=== PATIENT | female | born 1965 | race Caucasian/White ===

== ENCOUNTER 2018-09-30 07:30 | Inpatient (IN) | payer OTHER ==
--- NOTE | 2018-09-25 19:30 | Pre-op HX & Phy Repo 2 SIG ---
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 The patient has a 20-year history of ulcerative colitis. At some point, it was felt it was Crohn's disease, which was ruled out. She has a history of sarcoidosis not requiring treatment. The Ulcerative Colitis has been treated with multiple medical regimens, but she has increased symptoms and episodes of incontinence and a very limited quality of life. She has undergone colonoscopy revealing in the past, stricture of the sigmoid and mid upper rectum, but more recently in January of 2018, there was no sign of any stricture. Since 2017 she has had biopsy-proven anal intraepithelial neoplasm, which has been extensive and high-grade treated by cauterizing squamous intraepithelial lesions. She is not a candidate for restorative procedure with ileoanal pouch. In the past, she has taken many various medications including prednisone and 6-MP, most recently Entyvio and Canasa suppositories (mesalamine). The patient is scheduled to undergo proctocolectomy with creation of a Leal continent intestinal reservoir to avoid a conventional ileostomy requiring wearing an external appliance. The patient has also complained of joint pains and uveitis from her ulcerative colitis. PAST MEDICAL HISTORY AND MEDICATIONS: Entyvio 300 mg IV every 4 weeks with the last infusion on 09/13/2018. Occasionally she takes albuterol, Flonase , and Claritin for allergic-induced asthma. She has in the past also taken Zithromax for sinus infection. ALLERGIES TO MEDICATIONS: She thinks she is allergic to prednisone, perhaps she has excessive side effects, and morphine has caused rash. OPERATIONS: She has undergone section x3. She underwent left hand surgery x2 for removal of an old foreign body. REVIEW OF SYSTEMS: Sarcoidosis based on mediastinoscopy with biopsy , requiring no treatment PHYSICAL EXAMINATION: The patient is 5 feet 6.5 inches, 182 pounds. She is arriving from out of town, will be examined upon arrival and dictated separately. IMPRESSION: Intractable ulcerative colitis with anal intraepithelial neoplasm involving lower rectum and anal canal. PLAN: Proctocolectomy with creation of a Leal continent intestinal reservoir DISCUSSION: I have had a full discussion with the patient regarding the nature of her condition, the nature of the surgery, indications, alternatives, options, and risks. I have discussed the general risks of surgery including bleeding, infection, injury to adjacent structures or organs, adhesions that could lead to bowel obstruction, need for reoperation, scarring, deep vein thrombosis despite prophylaxis, need for catheter gastrostomy for decompression and its risks, etc. I have also had a detailed discussion about the risks of the Leal continent ileostomy procedure including the risk of reoperation for slipped valve or because of fistula of pouch or valve or other issues with the function or structure of the pouch or stoma. I will have another complete discussion in person with the patient when she arrives from out of town. She will undergo insertion of a dual lumen PICC line, intravenous hydration during her bowel prep, preoperative antibiotics started the night before surgery and preoperative subcutaneous heparin. Chung Gonzales M.D. DR: WILLIE JOB#: [id number] CC: HOSEA
[~2018-09-30] VITALS: Ht 167.6 cm; Wt 79.9 kg
[2018-09-30 10:10] VITALS: BP 138/77
--- NOTE | 2018-09-30 10:10 | NUR ---
NURSE NOTES:ADMITTED 58 YEARS OLD FEMALE FR.HOME DX.ULCERATIVE COLITIS.A/OX4,ROOM AIR.AMBULATORY.ADMISSION ASSESSMENT DONE.FOR SURGERY IN AM,CONSENTED.ADMISSION ORDERS DISCUSSED,WITH UNDERSTANDING.
--- NOTE | 2018-09-30 10:41 | NUR ---
CHARGE NURSE NOTES: ANESTHESIA CALLED THROUGH [facility] SURGERY DEPT.
[2018-09-30] MEDS ORDERED: Heparin1,000 units/500ml Premix(Conc:2 units/ml) IV PRN (11:00)
[2018-09-30] MEDS ORDERED: Lidocaine 1% Plain 30 ml INJ PRN (11:00)
[2018-09-30 11:26] LABS: BASOPHILS % (AUTO) 0.5 % (0.0-2.0); EOSINOPHILS % (AUTO) 3.8 % (0.0-3.0); HEMATOCRIT 32.7 % (37.0-47.0); HEMOGLOBIN 10.4 G/DL (12.0-16.0); LYMPHOCYTES % (AUTO) 17.7 % (20.0-45.0); MEAN CORPUSCULAR VOLUME 79 FL (80-99); MONOCYTES % (AUTO) 6.4 % (1.0-10.0); NEUTROPHILS % (AUTO) 71.6 % (45.0-75.0); PLATELET COUNT 317 K/UL (150-450); RED BLOOD COUNT 4.15 M/UL (4.20-5.40); RED CELL DISTRIBUTION WIDTH 14.1 % (11.6-14.8); WHITE BLOOD COUNT 6.4 K/UL (4.8-10.8)
[2018-09-30] MEDS ORDERED: Acetaminophen 500mg (ES) tab ORAL PRN (11:30)
[2018-09-30] MEDS ORDERED: Magnesium Citrate Liq Btl ORAL SCH (11:30)
[2018-09-30 11:39] LABS: INR 1.1 (0.9-1.1)
[2018-09-30 11:44] LABS: ANION GAP 11 mmol/L (5-15); BLOOD UREA NITROGEN 8 mg/dL (7-18); CALCIUM 8.8 MG/DL (8.5-10.1); CARBON DIOXIDE 25 MMOL/L (21-32); CHLORIDE 101 MMOL/L (98-107); POTASSIUM 3.5 MMOL/L (3.5-5.1); SODIUM 137 MMOL/L (136-145)
[2018-09-30 11:49] LABS: ALANINE AMINOTRANSFERASE 20 U/L (12-78); ALBUMIN 3.7 G/DL (3.4-5.0); ALBUMIN/GLOBULIN RATIO 0.8 (1.0-2.7); ALKALINE PHOSPHATASE 73 U/L (46-116); ASPARTATE AMINO TRANSFERASE 25 U/L (15-37); BILIRUBIN,TOTAL 0.4 MG/DL (0.2-1.0)
[2018-09-30] MEDS ORDERED: IRON 100 PLUS1 EACH PO (12:07)
[2018-09-30] MEDS ORDERED: ZYRTEC10 MG ORAL (12:07)
[2018-09-30] MEDS ORDERED: ALBUTEROL SULF8.5 GM INH (12:07)
[2018-09-30] MEDS: Neomycin Sulfate 500mg Tab ORAL SCH ×3 (12:27→20:13)
--- NOTE | 2018-09-30 13:26 | NUR ---
NURSE NOTES:to radiology for picc line.
[2018-09-30 13:32] LABS: APPEARANCE,URINE CLEAR; BILIRUBIN, URINE NEGATIVE (NEGATIVE); COLOR,URINE PALE YELLOW; GLUCOSE, URINE (UA) NEGATIVE (NEGATIVE); KETONES,URINE NEGATIVE (NEGATIVE); LEUKOCYTE ESTERASE ,URINE NEGATIVE (NEGATIVE); NITRITE,URINE NEGATIVE (NEGATIVE); PH,URINE 5 (4.5-8.0); PROTEIN,URINE NEGATIVE (NEGATIVE); UROBILINOGEN,URINE NORMAL MG/DL (0.0-1.0)
--- NOTE | 2018-09-30 14:39 | NUR ---
NURSE NOTES:SPOKE TO DR.CHIN SHANNON RE:PICC LINE,VERIFICATION IF ITS OKAY TO USE, SAID YES.SEEN ALSO BY AND ORDERED SCOPOLAMINE PATCH.
[2018-09-30] MEDS ORDERED: TransDerm Scop 1mg/72HR Patch TDERMAL SCH (14:45)
--- NOTE | 2018-09-30 14:52 | Anethesia Preoperative Eval ---
Anesthesia Pre-op PMH/ROS General Date of Evaluation: Sep 30, 2018 Time of Evaluation: 14:45 Anesthesiologist: Mahnaz ASA Score: ASA 2 Mallampati Score Class I : Soft palate, uvula, fauces, pillars visible Class II: Soft palate, uvula, fauces visible Class III: Soft palate, base of uvula visible Class IV: Only hard plate visible Mallampati Classification: Class II Surgeon: Christian Diagnosis: Ulcerative colitis Surgical Procedure: Ex laparotomy total colectomy, creation of continent pouch Anesthesia History: PONV Family History: no anesthesia problems Allergies: Coded Allergies: MORPHINE (Verified Allergy, Severe, 09/30/18) rash,hallucination,fallig off,itching PREDNISONE (Verified Allergy, Severe, Itching, 09/30/18) swelling,itching Medications: see eMAR Patient NPO?: Yes Past Medical History Cardiovascular: Reports: HTN; Denies: CAD, DE, valve dz, arrhythmia, other Pulmonary: Reports: other - sarcoidosis no SOB in remission; Denies: asthma, COPD, ANAMIKA Gastrointestinal/Genitourinary: Reports: other - Recurrent UC; Denies: GERD, CRI, ESRD Neurologic/Psychiatric: Reports: depression/anxiety; Denies: dementia, CVA, TIA, other Endocrine: Reports: steroids - h/o steroid therapy; Denies: DM, hypothyroidism, other HEENT: Denies: cataract (L), cataract (R), glaucoma, [place] (L), [place] (R), other Hematology/Immune: Reports: anemia - mild; Denies: DVT, bleeding disorder, other Musculoskeletal/Integumentary: Denies: OA, RA, DJD, DDD, edema, other PMH Narrative: as above PSxH Narrative: x3, removal of tumor recto sigmoid region Anesthesia Pre-op Phys. Exam Physician Exam Last Vital Signs Date Time Temp Pulse Resp B/P (MAP) Pulse Ox O2 Delivery O2 Flow Rate FiO2 09/30/18 10:10 98.1 77 18 138/77 (97) 95 09/30/18 10:10 Room Air Constitutional: NAD Neurologic: CN 2-12 intact Cardiovascular: RRR, no M/R/G Respiratory: CTA Gastrointestinal: S/NT/ND Airway Exam Mallampati Score: Class II MO: full Neck: flexible ROM: full Teeth: intact Dentures: no upper, no lower Anesthesia Pre-op A/P Labs Hematology Test 09/30/18 11:18 White Blood Count 6.4 K/UL (4.8-10.8) Red Blood Count 4.15 M/UL (4.20-5.40) L Hemoglobin 10.4 G/DL (12.0-16.0) L Hematocrit 32.7 % (37.0-47.0) L Mean Corpuscular Volume 79 FL (80-99) L Mean Corpuscular Hemoglobin 25.0 PG (27.0-31.0) L Mean Corpuscular Hemoglobin Concent 31.7 G/DL (32.0-36.0) L Red Cell Distribution Width 14.1 % (11.6-14.8) Platelet Count 317 K/UL (150-450) Mean Platelet Volume 6.4 FL (6.5-10.1) L Neutrophils (%) (Auto) 71.6 % (45.0-75.0) Lymphocytes (%) (Auto) 17.7 % (20.0-45.0) L Monocytes (%) (Auto) 6.4 % (1.0-10.0) Eosinophils (%) (Auto) 3.8 % (0.0-3.0) H Basophils (%) (Auto) 0.5 % (0.0-2.0) Coagulation Test 09/30/18 11:18 Prothrombin Time 11.4 SEC (9.30-11.50) Prothromb Time International Ratio 1.1 (0.9-1.1) Activated Partial Thromboplast Time 27 SEC (23-33) Chemistry Test 09/30/18 11:18 Sodium Level 137 MMOL/L (136-145) Potassium Level 3.5 MMOL/L (3.5-5.1) Chloride Level 101 MMOL/L (98-107) Carbon Dioxide Level 25 MMOL/L (21-32) Anion Gap 11 mmol/L (5-15) Blood Urea Nitrogen 8 mg/dL (7-18) Creatinine 1.0 MG/DL (0.55-1.30) Estimat Glomerular Filtration Rate 58.0 mL/min (>60) Glucose Level 137 MG/DL (74-106) H Calcium Level 8.8 MG/DL (8.5-10.1) Total Bilirubin 0.4 MG/DL (0.2-1.0) Aspartate Amino Transf (AST/SGOT) 25 U/L (15-37) Alanine Aminotransferase (ALT/SGPT) 20 U/L (12-78) Alkaline Phosphatase 73 U/L (46-116) Total Protein 8.1 G/DL (6.4-8.2) Albumin 3.7 G/DL (3.4-5.0) Globulin 4.4 g/dL Albumin/Globulin Ratio 0.8 (1.0-2.7) L Studies Pre-op Studies: EKG - NSR Risk Assessment & Plan Assessment: ASA 2 Plan: GA with ETT, PONV prevention Status Change Before Surgery: No Pre-Antibiotics Drug: as scheduled Julien Joya MD Sep 30, 2018 14:52
[2018-09-30 15:51] VITALS: BP 121/64
--- NOTE | 2018-09-30 16:45 | NUR ---
NURSE NOTES:SEEN BY DR. ANTON,ORDERS CARRIED OUT,MD AWARE RE:PATIENT TOLERATED I BOTTLE OF MG CITRATE WITH GOOD RESULTS.
--- NOTE | 2018-09-30 17:06 | General Progress Note ---
Progress Note Progress Note H&P dictated. Site chosen for Leal stoma. Full discussion regarding surgery including laparoscopic mobilization of flexures, proctocolectomy, and BCIR, including gastrostomy and various drains, and risks general and specific to the Leal continent ileostomy. Will repeat labs in AM to determine need for post-op TPN and Venofer. Discussed potential need for transfusion in view of her pre-op anemia. Chung Gonzales MD Sep 30, 2018 17:06
--- NOTE | 2018-09-30 17:44 | NUR ---
CASE MANAGEMENT: INITIAL REVIEW 53 YO F PRESENTED TO [facility] FROM HOME CC: INTRACTABLE UC PMHx: UC. HTN. ANEMIA. SI:ULCERATIVE COLITIS. T 98.1 HR 77 RR 18 B/P 138/77 SATS 95% ON RA GLU 137 IS:IVF @ 100 mL/HR FLAGYL IV Q6H UNASYN IV Q6H NEOMYCIN PO TID ERYTHROMYCIN PO TID PATIENT ADMITTED TO MED/SURG 09/30/2018 @ 1015 DCP: PATIENT TO BE DISCHARGED TO HOME ONCE MEDICALLY CLEARED. PLAN OF CARE: Proctocolectomy with creation of a Leal continent intestinal reservoir Addendum: 09/30/18 at 1930 by Annel Rey CM INTERQUAL MET
[2018-09-30] MEDS: D5 1/2NS w/KCl 20mEq 1,000 ML IV SCH (18:14)
--- NOTE | 2018-09-30 19:16 | Diagnostic Imaging Report ---
Indication: keno terminal operator venous access Findings: After the indications, procedure, risks, complications, and alternatives of the procedure were explained, written informed consent was obtained. The left upper extremity was prepped with alcohol. All elements of maximal sterile barrier technique were followed including usage of a cap, mask, sterile gown, sterile gloves, hand hygiene and a large sterile sheet. Sonographic evaluation of the upper extremity was performed demonstrating a patent and compressible basilic vein. Access was obtained under real-time ultrasound guidance (with utilization of sterile gel and sterile probe cover) and digital image was saved and archived. An .018 wire was introduced. Needle exchanged for a 5 Turkish peel-away sheath. Measurements were obtained. A 5 Turkish dual-lumen Power PICC line catheter was cut to 41 cm and introduced over the wire. Peel-away sheath and wire were removed.Catheter was secured to the skin using 2-0 Prolene suture. Both ports aspirate and flush easily. A single fluoroscopic image shows the distal tip in the superior vena cava. Total fluoroscopic time 11 seconds Impression: Successful placement of an upper extremity PICC line catheter
--- NOTE | 2018-09-30 19:17 | Diagnostic Imaging Report ---
Indication: Status post PICC line placement Comparison: None A single view chest radiograph was obtained. Findings: There are ill-defined upper lobe and perihilar densities present, acuity indeterminate. Correlate clinically. PICC line is in good position with the tip in the SVC. IMPRESSION: PICC line in good position cleared for use
--- NOTE | 2018-09-30 19:25 | NUR ---
NURSE NOTES: Report taken from ARI Mcgrath. patient is awake and in bed, A&Ox4, son at bedside. No signs of distress on room air. PICC CHRISTOPHE c/d/i and patent, dressing to be changed in the am prior to surgery. Asked patient to try and use hat in toilet to assess proper I/O. She is aware to be NPO at midnight, consent forms for surgery and blood signed. Continue to monitor, bed in lowest position, call light within reach. Addendum: 09/30/18 at 2007 by Obed Alvarado RN RN made aware that patient gets irritation with CHG bath, will notify .
[2018-09-30 20:00] VITALS: BP 126/68
[2018-09-30] MEDS ORDERED: Dyna-Hex 2% Top Sol 2oz TOPIC SCH (20:00)
--- NOTE | 2018-09-30 22:30 | Pre-op HX & Phy Repo 2 SIG ---
DATE OF ADMISSION: 09/30/2018 The patient has now arrived from out of town. Please see previously dictated history. PHYSICAL EXAMINATION: GENERAL: She is well-developed and well-nourished, in no distress. 5 foot 6-1/2 inches, approximately 182 pounds. VITAL SIGNS: Within normal limits. HEENT: Within normal limits. LUNGS: Clear. HEART: Regular rhythm. BREASTS: Without masses. ABDOMEN: Soft, very slightly obese. There is no tenderness. No mass or organomegaly. There is a transverse suprapubic scar from section surgery. There is no evidence of abdominal wall hernia. EXTREMITIES: Femoral pulses are 3+. PELVIC: Negative per primary care physician recently. RECTAL: There is no perianal skin irritation or any evidence of the anal intraepithelial neoplasm. EXTREMITIES: Without edema. Pulses 3+ femoral to dorsalis pedis bilaterally. NEUROLOGIC: Physiologic. IMPRESSION: 1. Intractable ulcerative colitis with anal intraepithelial neoplasm involving lower rectum and anal canal. 2. History of sarcoidosis, stable without requiring any treatment. PLAN: Proctocolectomy with creation of Leal continent intestinal reservoir. DISCUSSION: I have had a detailed discussion with the patient regarding the nature of her condition, the nature of the surgery, which we have discussed at length before her admission, indications, alternatives, options, and risks. We have discussed the possibility of laparoscopic mobilization of the hepatic and splenic flexures and transverse colon to limit the extent of the midline incision. I have discussed the need for catheter gastrostomy, indwelling Jung catheter, and perineal drains as well as a Kanika drain below the stoma and we have selected an appropriate location for the Leal continent ileostomy stoma. I have discussed the general risks of surgery including bleeding, infection, possible need for blood transfusions during or after surgery as she is anemic, deep vein thrombosis despite prophylaxis, adhesions that could lead to obstructions requiring more surgery, difficulty with healing of the perineum, etc. I have discussed the risks of Leal continent ileostomy surgery including the potential need for revision for slipped valve, or for fistula involving the pouch or valve, or other issues relating to the pouch function or structure or stoma. I have discussed the possibility of pouchitis and treatments and the immediate and long-term postoperative management of her Leal pouch. All questions have been answered. She understands and agrees to proceed as planned. A dual lumen PICC line has been placed. She will receive intravenous hydration during her bowel prep, both antibiotic and mechanical. She will receive IV antibiotics started the night before surger continued postoperatively and she will receive preoperative subcutaneous heparin. Chung Gonzales M.D. DR: WILLIE JOB#: [id number] CC: HOSEA
[2018-09-30] MEDS: Zolpidem 5mg tab ORAL PRN (23:41)
[2018-09-30] MEDS: Ampicillin/Sulbactam Sod 3 GM in NS 110 ML IV SCH (23:44)
[2018-10-01] VITALS (11 sets, daily range): BP systolic 98–134; BP diastolic 45–74
[2018-10-01] MEDS: D5 1/2NS w/KCl 20mEq 1,000 ML IV SCH (05:54)
[2018-10-01] MEDS: Ampicillin/Sulbactam Sod 3 GM in NS 110 ML IV SCH ×4 (05:54→23:57)
[2018-10-01 05:58] LABS: BASOPHILS % (AUTO) 0.8 % (0.0-2.0); EOSINOPHILS % (AUTO) 5.6 % (0.0-3.0); HEMATOCRIT 29.9 % (37.0-47.0); HEMOGLOBIN 9.5 G/DL (12.0-16.0); MEAN CORPUSCULAR VOLUME 78 FL (80-99); MONOCYTES % (AUTO) 9.8 % (1.0-10.0); NEUTROPHILS % (AUTO) 62.8 % (45.0-75.0); PLATELET COUNT 286 K/UL (150-450); RED BLOOD COUNT 3.81 M/UL (4.20-5.40); RED CELL DISTRIBUTION WIDTH 13.7 % (11.6-14.8); WHITE BLOOD COUNT 5.5 K/UL (4.8-10.8)
[2018-10-01] MEDS ORDERED: Heparin 5000 units/ml inj SUBQ ONE (06:00)
[2018-10-01 06:25] LABS: ALANINE AMINOTRANSFERASE 19 U/L (12-78); ALBUMIN 3.1 G/DL (3.4-5.0); ALBUMIN/GLOBULIN RATIO 0.8 (1.0-2.7); ALKALINE PHOSPHATASE 63 U/L (46-116); ANION GAP 9 mmol/L (5-15); ASPARTATE AMINO TRANSFERASE 20 U/L (15-37); BILIRUBIN,TOTAL 0.4 MG/DL (0.2-1.0); BLOOD UREA NITROGEN 4 mg/dL (7-18); CALCIUM 8.3 MG/DL (8.5-10.1); CARBON DIOXIDE 26 MMOL/L (21-32); CHLORIDE 105 MMOL/L (98-107); CREATININE 0.8 MG/DL (0.55-1.30); FERRITIN 6 NG/ML (8-388); POTASSIUM 3.8 MMOL/L (3.5-5.1); SODIUM 140 MMOL/L (136-145)
[2018-10-01 06:50] LABS: % IRON SATURATION 13 % (15-50); IRON 43 ug/dL (50-175); TOTAL IRON BINDING CAPACITY 333 ug/dL (250-450)
--- NOTE | 2018-10-01 06:54 | NUR ---
NURSE NOTES: Report given to ARI Brandt in the OR. Patient was able to sign own consent for procedure.
[2018-10-01] MEDS ORDERED: fentaNYL 100 mcg/2 mL IV ONE ×2 (06:58→09:22)
[2018-10-01] MEDS ORDERED: Midazolam 2mg/2ml Inj ONE (06:58)
[2018-10-01] MEDS ORDERED: Propofol 200mg/20ml IV ONE ×2 (06:59→14:58)
[2018-10-01] MEDS ORDERED: Lidocaine 1% MPF 10mg/ml 5ml ONE (06:59)
[2018-10-01] MEDS ORDERED: Zemuron 50mg/5ml Inj IV ONE (07:04)
[2018-10-01] MEDS ORDERED: Succinylcholine 20mg/ml 10ml vial ONE (07:04)
--- NOTE | 2018-10-01 07:05 | NUR ---
NURSE NOTES: Transport from [facility] came to get patient in hospital bed. Vital Signs stable
--- NOTE | 2018-10-01 07:07 | Pre-Procedure Note/Attestation ---
Pre-Procedure Note/Attestation Complete Prior to Procedure Planned Procedure: not applicable Procedure Narrative: proctocolectomy with laparoscopic mobilization, Leal Continent Ileostomy, gastrostomy Indications for Procedure Pre-Operative Diagnosis: ulcerative colitis and anal intraepithelial neoplasm Attestation I attest that I discussed the nature of the procedure; its benefits; risks and complications; and alternatives (and the risks and benefits of such alternatives ), prior to the procedure, with the patient (or the patient's legal automotive sales representative). I attest that, if there was a reasonable possibility of needing a blood transfusion, the patient (or the patient's legal automotive sales representative) was given the [place] Department [employer] standardized written summary, pursuant to the Brent Gage Blood Safety Act ([place] Health and Safety Code # 1645, as amended). I attest that I re-evaluated the patient just prior to the surgery and that there has been no change in the patient's H&P, except as documented below: none Chung Gonzales MD Oct 01, 2018 07:07
[2018-10-01] MEDS ORDERED: Bacitracin 50000 Units Vial ONE (07:24)
[2018-10-01] MEDS ORDERED: NeoSporin Gu Irrig 1ml Amp IRRIG ONE (07:25)
[2018-10-01] MEDS ORDERED: LR 1000ml ONE (07:30)
[2018-10-01] MEDS ORDERED: Acetaminophen (Non formulary) 100 ML IV ONE (07:30)
[2018-10-01] MEDS ORDERED: Sterile Water Irrig 1000ml IRRIG ONE (07:30)
[2018-10-01] MEDS ORDERED: NS Irrig 1000ml ONE (07:30)
--- NOTE | 2018-10-01 07:30 | NUR ---
NURSE NOTES: Patient is off the unit.
--- NOTE | 2018-10-01 07:32 | NUR ---
HAND-OFF: Report given to ARI Baker. Patient off the floor for surgical procedure.
--- NOTE | 2018-10-01 07:55 | NUR ---
CASE MANAGEMENT:REVIEW 10/01/18 SI: POD #1 98.1 65 19 134/72 98% ON RA H/H-9.5/29.9 CA-8.3 IS: IV FLAGYL Q6HRS IV AMPICILLIN Q6HRS IVF@100/HR : MED/SURG STATUS [facility]
[2018-10-01] MEDS ORDERED: Sodium Chloride 10ml vial INJ ONE (09:22)
--- NOTE | 2018-10-01 11:49 | NUR ---
*-* NO INSURANCE INFORMATION TO SEND CLINICALS *-*
[2018-10-01] MEDS ORDERED: Morphine Sulfate 10mg/ml Inj ONE (11:58)
[2018-10-01] MEDS ORDERED: Ampicillin/Sulbactam Sod 3 GM in NS 110 ML IV SCH (12:00)
[2018-10-01] MEDS ORDERED: Glycopyrrolate 0.2mg/ml 1ml Vial ONE (12:03)
[2018-10-01] MEDS ORDERED: Ketorolac 30mg Inj ONE (12:10)
[2018-10-01] MEDS ORDERED: LR 1000ml 1,000 ML IVLG SCH (12:29)
[2018-10-01] MEDS ORDERED: Hydromorphone 0.5mg/0.5ml inj IVP PRN (12:30)
[2018-10-01] MEDS ORDERED: DiphenhydrAMINE 50mg/ml Inj IVP PRN ×2 (12:30→15:00)
[2018-10-01] MEDS ORDERED: Ketorolac 30mg Inj IV PRN (12:30)
[2018-10-01] MEDS ORDERED: Metoclopramide 10mg/2ml Inj IVP PRN ×2 (12:30→16:15)
[2018-10-01] MEDS ORDERED: Meperidine 50mg/ml Inj(FOR RIGORS ONLY) IV PRN (12:30)
[2018-10-01] MEDS ORDERED: Midazolam 2mg/2ml Inj IVP PRN (12:30)
[2018-10-01] MEDS ORDERED: LORazepam 1mg tab SL PRN (14:45)
[2018-10-01] MEDS ORDERED: Acetaminophen 650mg/20.3ml GT PRN (14:45)
--- NOTE | 2018-10-01 14:53 | Brief Operative Note ---
Immediate Post Operative Note Operative Note Pre-op Diagnosis: ulcerative colitis and anal intraepithelial neoplasm Procedure: proctocolectomy with laparoscopic mobilization; Leal continent ileostomy; gastrostomy Post-op Diagnosis: same Post-op Diagnosis: same as pre-op Findings: consistent w/pre-op dx studies Surgeon: baron Impregnator Electrolytic Capacitors: jose ramon Anesthesiologist: qamar Anesthesia: general Specimen: yes - colon, rectum and anus; small bowel trimming Complications: none Condition: stable Fluids: 1 unit PRBC Estimated Blood Loss: volume - 200cc Drains: other - 28 Fr ileo, 18 Fr gastrostomy; 0.25inch bhavin, JASON x 2 in perineum Implant(s) used?: No Chung Gonzales MD Oct 01, 2018 14:53
[2018-10-01] MEDS ORDERED: PCA HYDROmorphone 1mg/ml 30 ML IV ONE (14:56)
--- NOTE | 2018-10-01 14:56 | Immediate Post-Op Evaluation ---
Immediate Post-Op Evalulation Immediate Post-Op Evalulation Procedure: Total proctocolectomy, creation of continent pouch Date of Evaluation: Oct 01, 2018 Time of Evaluation: 14:54 IV Fluids: 1200 Blood Products: Albumin 250, PRBC 1unit Estimated Blood Loss: 200 Urinary Output: 500 Blood Pressure Systolic: 124 Blood Pressure Diastolic: 68 Pulse Rate: 78 Respiratory Rate: 22 O2 Sat by Pulse Oximetry: 98 Temperature (Fahrenheit): 98.2 Pain Score (1-10): 3 Nausea: No Vomiting: No Complications none Patient Status: reacts, patent, extubated, none Hydration Status: adequate Julien Joya MD Oct 01, 2018 14:56
[2018-10-01] MEDS ORDERED: PCA Education Pamphlet MISC ONE (15:00)
[2018-10-01] MEDS ORDERED: Rate Change PCA 1 Each MISC PRN (15:00)
[2018-10-01] MEDS ORDERED: PCA HYDROmorphone 1mg/ml 30 ML IV PRN (15:00)
[2018-10-01] MEDS ORDERED: Naloxone 0.4mg/ml Inj IVP PRN (15:00)
--- NOTE | 2018-10-01 15:05 | Cardiology Report ---
APPROVED REPORT EKG Measurement Heart [id number] FL [id number] Normal sinus rhythm Nonspecific ST abnormality Abnormal ECG
--- NOTE | 2018-10-01 16:25 | NUR ---
NURSE NOTES: Patient arrived on unit, stable with no s/s acute distress. Patient instructed how to use STEAM HAMMER OPERATOR, verbalized understanding. Patient has 2 JASON drains, numbered #1 and #2, will monitor output as ordered. Jung, ileo, and gtube draining and patent, will flush and monitor output as ordered. Surgical dressing, clean, dry, and intact. Patient is comfortable in bed with call light within reach. Will continue to monitor.
[2018-10-01] MEDS: D5 1/4NS w/KCl 20mEq 1,000 ML IV SCH (17:26)
[2018-10-01] MEDS: PCA shift volume MISC SCH (19:00)
--- NOTE | 2018-10-01 19:00 | NUR ---
NURSE NOTES: NURSE NOTES: Surgical dressing changed as ordered because it was soiled with sanguinous drainage. Tolerated well. Will continue to monitor.
--- NOTE | 2018-10-01 19:30 | NUR ---
[facility] Downtime: On 12/17/2012 From [] to[], The following electronic documentation will be located in the patient handwritten chart, Following patient discharge, paper documentation will be scanned into [facility] with the remainder of the paper chart. Nursing Documentation Physician orders Medication Administration Records Medication Reconciliation Respiratory Documentation Dietary Documentation Case Management Documentation Winery Worker Documentation Addendum: 10/01/18 at 2006 by JEROD HIDALGO RN ERROR
--- NOTE | 2018-10-01 19:30 | NUR ---
HAND-OFF: Report given to Obed CHAPMAN. Patient is stable, gillis, JPs, ileo, and gtube patent and draining. PICC line patent and asymptomatic. Surgical dressing clean, dry, and intact
--- NOTE | 2018-10-01 21:36 | NUR ---
NURSE NOTES: Report taken from ARI Baker. Patient is awake, fatigues, bedrest required. Having some minimal pain, 4/10, instructed to use DRIVER EDUCATION ROAD INSTRUCTOR as needed. Orders by MD placed for pm. G-tube c/d/i and draining oro fluid. Ileo c/d/i draining dark red fluid. JASON drains c/d/i with sanguineous fluid. Jung c/d/i and patent, urine is alysa in color no foul odor. DRIVER EDUCATION ROAD INSTRUCTOR pump continuous at .1 mg/hr, and bolus ., continue to monitor for drop in BP. PICC line c/d/i and running D5 .45%NS + 20mEq/KCl. Surgical dressing soiled, other duffy intact, will change during shift PRN. No skin issues present. Bed in lowest position, call light within reach.
--- NOTE | 2018-10-01 21:45 | Operative Note - Dictated ---
DATE OF OPERATION: 10/01/2018 SURGEON: Chung Gonzales M.D. DIRECTOR COMPENSATION SURGEON: Tommy Gandhi M.D. ANESTHESIOLOGIST: Julien Joya M.D. TYPE OF ANESTHESIA: General endotracheal. PREOPERATIVE DIAGNOSIS: Intractable ulcerative colitis with anal intraepithelial neoplasm involving anal canal and rectum. POSTOPERATIVE DIAGNOSIS: Intractable ulcerative colitis with anal intraepithelial neoplasm involving anal canal and rectum. OPERATION PERFORMED: 1. Proctocolectomy with laparoscopic mobilization of hepatic and splenic flexures 2. Leal Continent Intestinal [place]. 3. Catheter gastrostomy. DESCRIPTION OF PROCEDURE: The patient was taken to the operating room and under general anesthesia with sequential compression device stockings in place and appropriately positioned in Balbir stirrups, padded and protected, the patient was prepped and draped in the usual fashion including a vaginal prep. A 2-0 silk pursestring suture was placed around the anal verge. Through an infraumbilical vertical incision, a GelPort was placed and abdominal exploration revealed a mobile cecum, normal small intestine, and with the laparoscope inserted normal liver and gallbladder and spleen and stomach. Using cautery and the Thunderbeat electrosurgical device, the right colon was mobilized including hepatic flexure. The transverse colon leaving omentum attached, and the splenic flexure and proximal descending colon mobilized. Then the GelPort was removed and the incision was extended from just above the umbilicus to the pubis achieving hemostasis with cautery. A [place] retractor was used protecting the abdominal wall with antibiotic soaked lap sponges. Further exploration was performed revealing normal for age uterus, tubes, and ovaries. Stomach and duodenum was normal. The small bowel was inspected from ligament of Treitz to the ileocecal valve all of which was normal. The mesentery was somewhat fatty. There was no evidence of tumor or mass involving the colon. Using the Thunderbeat and ligating the major vessels with #0 silk, the mesentery was divided including the hepatic flexure tissues and the lienocolic ligament and going through the lesser sac. Both ureters and bladder were visualized throughout the procedure and protected. The rectosigmoid was elevated and the vascular pedicle ligated with #0 silk. The bowel was divided with a ISABELLE-75 and the abdominal colon given for pathologist inspection, who found no evidence of malignancy. Then the rectum was mobilized circumferentially down to the coccyx. I then went below and made an elliptical incision around the anus and then using an inter-sphincteric dissection without any entry into the posterior vaginal wall, the anus, anal canal, and rectum were mobilized and delivered through the abdomen. Through medial and lateral stab incisions, 19 mm round Elmer drains were placed into the presacral space and sutured to the skin with two sutures of 2-0 nylon. The perineum was irrigated with antibiotic solution and hemostasis carefully achieved with cautery. The perineal floor was closed in multiple layers with interrupted 0 Vicryl, 2-0 Vicryl, and 3-0 Vicryl and skin closed with interrupted 2-0 nylon vertical mattress sutures. Dry sterile dressing was applied and then the patient was taken out of lithotomy position and a pillow placed behind the knees with the sterile field protected. The distal ileum had been transected with the ISABELLE-75 earlier in the procedure. Now the staple line was imbricated with interrupted 3-0 silk and 12 cm proximal marked for the collar segment. Then 15 cm proximal was marked for the pouch and the two adjacent limbs of small bowel were placed side by side. With appropriately located enterotomies and using multiple applications of the ISABELLE-75, the ileal reservoir was created and an apex suture of 3-0 silk was placed. The staple line was everted and there was 1 small opening that was closed with full-thickness 2-0 chromic suture two interrupted sutures, and then imbricating 3-0 silk suture. The mucosal aspect was inspected and hemostasis was controlled with cautery and hemoclips. The junction of the afferent bowel and the pouch was marked with a 2-0 chromic and 12 cm proximal marked for the nipple valve segment. A 2 fingerbreadth mesenteric hiatus was created at this point using the Thunderbeat. The abdominal wall thickness at the level of the new stoma measured 5 cm. The appropriate length access segment was measured and marked and then the mesentery divided, preserving two good vessels to the valve segment. The mesentery was divided with the Thunderbeat and the bowel was divided with the ISABELLE-75, with the proximal staple line imbricated with 3-0 silk and the distal opened to assist in formation of the valve. Then, the peritoneum was stripped on each side of the valve segment mesentery and the serosa scarified with cautery. With gradual intussusception, a 5.5 cm long nipple valve was created with easy access with the Mallory suction device. Using the PI-55 stapling device with 4.8 mm keegan, 2 rows were placed 90 degrees away from the mesentery on both sides. Then, using interrupted 3-0 silk sutures, sutures were placed between the access segment at its mesentery to the pouch on each side and then a third application of the PI-55 stapling device with 4.8 mm keegan was utilized to staple the valve to the anterior pouch wall. Additional 3-0 silk was placed between the access segment and pouch. The afferent bowel was then brought adjacent to the pouch enterotomy with a very short blind end and a [id number]-fo-[id number] anastomosis was created with an outer layer of 3-0 silk with a full-thickness inner layer of continuous 2-0 chromic locking suture and an outer anterior layer of interrupted 3-0 silk. Then, the collar was brought through the mesenteric hiatus at the junction of the access segment and the pouch and sutured to the access segment, to itself and to the pouch with interrupted 3-0 silk and sutures to the blind end of the proximal bowel with interrupted 3-0 silk. A 28-[place] Jung catheter readily passed into the pouch and with the afferent bowel manually occluded, the pouch was distended with 100 mL of saline. There was no sign of any extravasation. The catheter was removed after decompressing the pouch. At an appropriate location in the right lower quadrant, a 2.5 cm transversely oriented narrow ellipse of skin was excised and with a cruciate incision in the fascia, a 2 fingerbreadth abdominal wall hiatus was created. The posterior pouch was sutured to the peritoneum with interrupted 3-0 Vicryl sutures and the access segment with its mesentery brought through the abdominal wall and anterior 3-0 Vicryl suture placed. The 28-[place] Jung went directly into the pouch maintaining stretch on the access segment. The redundancy of the access segment was excised and the stoma primarily matured with continuous 2-0 chromic locking suture starting at the 3 and 9 o'clock positions. A very satisfactory stoma was achieved. Through a separate stab incision inferior to the stoma, a quarter-inch Kanika drain was placed into the pelvis and sutured to the skin with 3-0 silk suture. The 28-[place] Jung catheter was now positioned in the pouch making sure to be positioned in the apex without any tension, it was then marked at the level of the stoma with 3-0 silk and the catheter was sutured to the skin with two sutures of 2-0 silk. The catheter was flushed and connected to a gravity drainage bag. Now to achieve complete decompression of the gastrointestinal tract during the healing of the pouch, a catheter gastrostomy was performed by making a stab incision in the left upper quadrant and bringing an 18-[place] Jung catheter through the abdominal wall. It was placed into the stomach, anterior wall, greater curve fundus between two concentric 2-0 chromic pursestring sutures with the balloon inflated and the stomach sutured to the anterior abdominal wall with multiple interrupted 3-0 silk sutures. The catheter was flushed and connected to a gravity drainage bag. The catheter was sutured to the skin with 2-0 silk suture. The pelvis and abdomen were inspected and hemostasis was seen to be secure. The pelvic peritoneum had been closed with continuous 3-0 Vicryl suture without difficulty and the pouch lay nicely transversely across the pelvis. The abdominal wall was then closed in one layer with continuous looped #1 PDS and additional antibiotic irrigation performed and the skin closed with keegan. Dry sterile dressings were applied. Final sponge and needle counts were correct. The patient tolerated the procedure well and left the operating room in stable condition. Chung Gonzales M.D. DR: BRENDA JOB#: [id number] CC: [place]SEA
--- NOTE | 2018-10-01 21:51 | NUR ---
NURSE NOTES: Dressing changed on patient, pen yoli drain patent, draining blood. Continue to monitor and change PRN.
[2018-10-02] VITALS: BP 105/60
[2018-10-02] MEDS: LORazepam 1mg tab SL PRN ×3 (00:07→17:52)
[2018-10-02] MEDS: D5 1/4NS w/KCl 20mEq 1,000 ML IV SCH ×4 (02:02→20:27)
[2018-10-02 04:00] VITALS: BP 96/45
[2018-10-02] MEDS: Ampicillin/Sulbactam Sod 3 GM in NS 110 ML IV SCH ×3 (06:15→17:52)
--- NOTE | 2018-10-02 06:50 | NUR ---
NURSE NOTES: Patient stable through shift. Dressing changed x3 due to saturation of bandages. Output for drains as follows: UO: 500cc : dark alysa colored urine Ileo: 125cc-80cc= 45cc : ileo draining sanguineous fluid GT: 425cc-80cc= 345cc : draining light oro materials
[2018-10-02 07:15] LABS: ANION GAP 8 mmol/L (5-15); BLOOD UREA NITROGEN 5 mg/dL (7-18); CARBON DIOXIDE 26 MMOL/L (21-32); CHLORIDE 106 MMOL/L (98-107); CREATININE 0.8 MG/DL (0.55-1.30); POTASSIUM 3.7 MMOL/L (3.5-5.1); SODIUM 140 MMOL/L (136-145)
--- NOTE | 2018-10-02 07:21 | NUR ---
HAND-OFF: Report given to ARI Baker. Patient asleep, vitals stable. Drains patent. PICC line c/d/i.
[2018-10-02] MEDS: PCA shift volume MISC SCH ×2 (07:24→19:52)
[2018-10-02 07:30] LABS: BASOPHILS % (AUTO) 0.3 % (0.0-2.0); EOSINOPHILS % (AUTO) 0.4 % (0.0-3.0); HEMATOCRIT 27.8 % (37.0-47.0); LYMPHOCYTES % (AUTO) 8.8 % (20.0-45.0); MEAN CORPUSCULAR VOLUME 80 FL (80-99); NEUTROPHILS % (AUTO) 82.4 % (45.0-75.0); PLATELET COUNT 233 K/UL (150-450); RED BLOOD COUNT 3.48 M/UL (4.20-5.40); WHITE BLOOD COUNT 11.4 K/UL (4.8-10.8)
--- NOTE | 2018-10-02 07:30 | NUR ---
NURSE NOTES: Patient is in bed awake and able to verbalize needs. Stable. Patient complains of severe pain, will administer medication as ordered. Jung catheter is patent and draining urine. Ileo and Gtube patent and draining, will flush and monitor as ordered. JASON#1 and JASON#2 are draining as ordered, sanguinous drainage noted, will monitor. Patient instructed to use call light for assistance, verbalized understanding. PICC line running fluids as ordered, both lumens patent. Surgical dressing intact, will change and monitor as ordered. Patient in bed with call light within reach, will continue to monitor.
[2018-10-02 08:00] VITALS: BP 97/51
[2018-10-02] MEDS ORDERED: PCA HYDROmorphone 1mg/ml 30 ML IV PRN (08:00)
[2018-10-02] MEDS ORDERED: Naloxone 0.4mg/ml Inj IVP PRN (08:08)
--- NOTE | 2018-10-02 08:14 | General Progress Note ---
Progress Note Progress Note AVSS with systolic BP 96-105, no tachycardia. Staying comfortable with Dilaudid ELECTRIC TRIPPER MACHINE OPERATOR with breakthrough doses Chest decreased expansion Cor reg rhythm Abdomen soft, mild distention, incision clean, mod. serosang via bhavin Perineum incision clean and dry 12 hrs overnight: Urine 500 Gastrostomy 425 BCIR ileo 65 serosang JPs 55+15 sang. WBC 11,400 Hgb 9.0 (was 9.5 pre-op and received 1 unit PRBC in OR) BUN 5 Cr 0.8 Albumin 3.1 pre-op Iron 43 Ferritin 6 (8-388) B12 and folate ok Imp. Ileus Atelectasis Malnutrition mod. severe Severe iron deficiency Plan: NPO, pulmonary toilet, bedrest today with frequent moving Continue Jung - pelvic dissection TPN Venofer F/U labs Chung Gonzales MD Oct 02, 2018 08:14
[2018-10-02] MEDS ORDERED: Rate Change PCA 1 Each MISC PRN (08:15)
--- NOTE | 2018-10-02 09:28 | 48 Hour Post Anesthesia Eval ---
Post Anesthesia Evaluation Procedure: Total proctocolectomy, creation of continent pouch Date of Evaluation: Oct 02, 2018 Time of Evaluation: 09:26 Blood Pressure Systolic: 98 0: 54 Pulse Rate: 72 Respiratory Rate: 22 Temperature (Fahrenheit): 97.6 O2 Sat by Pulse Oximetry: 98 Airway: patent Nausea: Yes Vomiting: No Pain Intensity: 3 Hydration Status: adequate Cardiopulmonary Status: stable Mental Status/LOC: patient returned to baseline Follow-up Care/Observations: n/a Post-Anesthesia Complications: none Follow-up care needed: N/A Julien Joya MD Oct 02, 2018 09:28
--- NOTE | 2018-10-02 10:42 | NUR ---
RD ASSESSMENT & RECOMMENDATIONS SEE CARE ACTIVITY FOR COMPLETE ASSESSMENT DAILY ESTIMATED NEEDS: Needs based on surgery 64.8kg 25-30 kcals/kg 9761-7218 total kcals 1-2 g protein/kg 65-130 g total protein 25-30 mL/kg 7964-8726 total fluid mLs NUTRITION DIAGNOSIS: Altered GI fxn r/t ileus, proctocolectomy as evidenced by pt w/ h/o ulcerative colitis, now s/p new BCIR, ileus, NPO, orders for TPN for anticipated prolonged NPO status. CURRENT DIET: NPO PARENTERAL NUTRITION RECOMMENDATIONS: D/AA Rate: 65 IL Rate: 9 Total Rate: 74 Volume: 1776 % Dextrose: 19 % AA: 5.2 Energy (kcals/kg): 1764.3 Protein (g/kg protein): 81 Nonprotein KCALS: 1440 GIR (mg CHO/kg/min): 3.2 % Fat KCALS: 25 NPC: N Ratio: 111:1 TPN Comment: - Rec D19% with AA 5.2% @65ml/hr + IL 20% @9ml/hr-> all 3:1 - Start TPN @24ml/hr, advance by 10ml/hr q4-6 hrs to goal - TPN @goal meets 100% est kcal and pro needs; provides 27kcal per adj kg, 1.3g pro/adj kg. - MONITOR: BG, LFT's, and LYTES daily on TPN - GIR <5, NPC>100:1, % Fat <30 ADDITIONAL RECOMMENDATIONS: 1) MONITOR DAILY ON TPN: BG, LFT's, and LYTES 2) Weekly standing weights as able 3) Monitor for ability to start clears
[2018-10-02 12:00] VITALS: BP 107/52
--- NOTE | 2018-10-02 12:35 | NUR ---
CASE MANAGEMENT:REVIEW 10/02/18 SI: POD #2 S/P PROCTOCOLECTOMY.[place] CONTINENT INTESTINAL RESERVOIR CATHETER GASTROSTOMY 99.5 84 20 97/51 96% ON 2L/NC WBC+11.4 H/H-9.0/27.8 IS: START TPN/IL @ 74/HR UNIFIED COMMUNICATIONS ENGINEER DILAUDID IVF@125/HR IV FLAGYL Q6HRS IV AMPICILLIN Q6HRS : MED/SURG STATUS 3 EAST PLAN: NPO
--- NOTE | 2018-10-02 14:43 | NUR ---
*-* NO INSURANCE INFORMATION TO SEND CLINICALS *-*
[2018-10-02] MEDS: DiphenhydrAMINE 50mg/ml Inj IVP PRN ×2 (15:55→20:29)
[2018-10-02 16:00] VITALS: BP 117/70
[2018-10-02] MEDS ORDERED: NS 500ML ONE (17:10)
[2018-10-02] MEDS ORDERED: Tubing IV Secondary IV ONE (17:10)
--- NOTE | 2018-10-02 19:30 | NUR ---
HAND-OFF: Report given to Itzel CHAPMAN. Patient is stable.
--- NOTE | 2018-10-02 19:45 | NUR ---
NURSE NOTES: Pt lying in bed w/son at bedside, bed in lowest position, and call light/DIESEL MACHINIST button within reach. Pt A&Ox4; on 2L NC; VSS; and in no apparent distress at this time. CHRISTOPHE PICC line intact/asymptomatic w/IVF @ 125 ml/hr; dressing C/D/I; and drains patent/draining well. Will continue to monitor.
[2018-10-02 20:00] VITALS: BP 113/63
[2018-10-02] MEDS ORDERED: Dextrose 10% 1,000 ML IV PRN (20:00)
[2018-10-02] MEDS: [UNRECOGNIZED DRUG - NUTRITION] IV SCH ×2 (20:25)
[2018-10-02] MEDS: Iron Sucrose 100 MG in NS 55 ML IV SCH (20:28)
[2018-10-02] MEDS ORDERED: Fat Emulsion Iv 20% 250 ML IV SCH (21:00)
[2018-10-03] VITALS: BP 128/67
[2018-10-03] MEDS: Ampicillin/Sulbactam Sod 3 GM in NS 110 ML IV SCH ×4 (00:03→18:14)
[2018-10-03] MEDS: NovoLOG Insulin Flexpen SUBQ SCH ×4 (00:14→18:19)
[2018-10-03 04:00] VITALS: BP 122/57
[2018-10-03 05:42] LABS: BASOPHILS % (AUTO) 0.5 % (0.0-2.0); EOSINOPHILS % (AUTO) 2.5 % (0.0-3.0); HEMATOCRIT 27.5 % (37.0-47.0); HEMOGLOBIN 8.7 G/DL (12.0-16.0); LYMPHOCYTES % (AUTO) 8.7 % (20.0-45.0); MEAN CORPUSCULAR VOLUME 80 FL (80-99); MONOCYTES % (AUTO) 7.4 % (1.0-10.0); PLATELET COUNT 222 K/UL (150-450); RED BLOOD COUNT 3.44 M/UL (4.20-5.40); RED CELL DISTRIBUTION WIDTH 14.1 % (11.6-14.8); WHITE BLOOD COUNT 11.2 K/UL (4.8-10.8)
[2018-10-03 06:14] LABS: ALANINE AMINOTRANSFERASE 24 U/L (12-78); ALBUMIN 2.4 G/DL (3.4-5.0); ALBUMIN/GLOBULIN RATIO 0.6 (1.0-2.7); ALKALINE PHOSPHATASE 48 U/L (46-116); ANION GAP 5 mmol/L (5-15); ASPARTATE AMINO TRANSFERASE 36 U/L (15-37); BILIRUBIN,TOTAL 0.3 MG/DL (0.2-1.0); BLOOD UREA NITROGEN 4 mg/dL (7-18); CALCIUM 7.9 MG/DL (8.5-10.1); CARBON DIOXIDE 29 MMOL/L (21-32); CHLORIDE 102 MMOL/L (98-107); CREATININE 0.8 MG/DL (0.55-1.30); POTASSIUM 3.6 MMOL/L (3.5-5.1); SODIUM 136 MMOL/L (136-145)
--- NOTE | 2018-10-03 07:15 | NUR ---
NURSE NOTES: Patient is in bed awake and able to verbalize needs. Patient is stable with no s/s acute distress. Patient complains of severe pain, will administer medication as ordered. JASON drains 1 and 2 patent, Jung patent and draining, ileo patent and draining, gtube patent and draining. Will monitor drains and output as ordered. Patient is encouraged to use incentive spirometer, verbalized understanding. patient is in bed with call light within reach. WIll continue to monitor.
[2018-10-03] MEDS: PCA shift volume MISC SCH ×2 (07:26→19:00)
--- NOTE | 2018-10-03 07:27 | NUR ---
HAND-OFF: Report given to ARI Baker.
[2018-10-03 08:00] VITALS: BP 112/52
[2018-10-03] MEDS ORDERED: PCA HYDROmorphone 1mg/ml 30 ML IV PRN (08:00)
[2018-10-03] MEDS ORDERED: Naloxone 0.4mg/ml Inj IVP PRN (08:30)
[2018-10-03] MEDS ORDERED: Rate Change PCA 1 Each MISC PRN (08:30)
[2018-10-03] MEDS ORDERED: DiphenhydrAMINE 50mg/ml Inj IVP PRN (08:30)
[2018-10-03] MEDS ORDERED: Ketorolac 30mg Inj IV SCH (08:42)
--- NOTE | 2018-10-03 08:48 | General Progress Note ---
Progress Note Progress Note AVSS with P 100. c/o pain despite Dilaudid MATHEMATICIAN chest clear abdomen soft, mild distention, incision clean, stoma pink, bhavin small amount serosang perineum incision clean Urine 2024 Gastrostomy 800 BCIR ileo 210 serosang JPs 40/20 WBC 11,200 Hgb 8.7 BMP-ok BUN 4 Cr 0.8 Albumin 2.4 Imp: Ileus atelectasis pain Plan: NPO, TPN, Venofer 100mg IV daily Toradol 30mg IV q6h pern severe breakthrough pain Mobilize and ambulate BID f/u labs Chung Gonzales MD Oct 03, 2018 08:48
[2018-10-03] MEDS: LORazepam 1mg tab SL PRN ×2 (09:03→18:21)
[2018-10-03 12:00] VITALS: BP 94/52
--- NOTE | 2018-10-03 12:59 | NUR ---
CASE MANAGEMENT:REVIEW 10/03/18 SI: POD #3 S/P PROCTOCOLECTOMY.[place] CONTINENT INTESTINAL RESERVOIR CATHETER GASTROSTOMY 99.5 84 20 97/51 96% ON 2L/NC WBC+11.4 H/H-9.0/27. IS: START TPN/IL @ 74/HR STRETCH MACHINE OPERATOR DILAUDID IVF@50/HR IV VENOFER QHS IV FLAGYL Q6HRS IV AMPICILLIN Q6HRS : MED/SURG STATUS 3 EAST PLAN: NPO MOBILIZE AND AMBULATE BID JASON DRAINS
[2018-10-03 16:00] VITALS: BP 98/51
[2018-10-03] MEDS: D5 1/4NS w/KCl 20mEq 1,000 ML IV SCH (16:11)
--- NOTE | 2018-10-03 16:18 | NUR ---
P.T Note: P.T evaluation completed and treatment initiated. Please refer to P.T evaluation for current functional status. Pt is limited by generalized body fatigue and surgical/incisional pain aggravated by movement initiation . Pt currently required extended time and CGA for bed mobility, transfers and gait/ambulation activities using the FWW Skilled P.T service is warranted to improve strength and activity tolerance to increase safety and mobility independence. Thank you for this referral. Pt is cleared for OOB activities with nursing assistance.
[2018-10-03] MEDS: Ketorolac 30mg Inj IV PRN (17:05)
--- NOTE | 2018-10-03 19:30 | NUR ---
HAND-OFF: Report given to Tasha CHAPMAN. Patient is stable.
[2018-10-03 20:00] VITALS: BP 107/43
--- NOTE | 2018-10-03 20:45 | NUR ---
NURSE NOTES: Patient is aox4, Pain 4/10 anterior abdomen. No n/v, BRANCH ACCOUNT MANAGER teaching reinforced. Ileostomy and GT flushed per MD order, draining well. JASON drains compressed, output serosanguineous. Abdomen mildly distended, abdominal dressing reinforced. PICC line flushing well, tpn and fluids running, ambien given for sleep. significant other at bedside. Due meds given, needs attended to. Bed low, call light within reach.
[2018-10-03] MEDS: Iron Sucrose 100 MG in NS 55 ML IV SCH (21:57)
[2018-10-03] MEDS: Zolpidem 5mg tab ORAL PRN (21:57)
[2018-10-03] MEDS: [UNRECOGNIZED DRUG - NUTRITION] IV SCH ×2 (21:59)
[2018-10-04] VITALS: BP 105/58
[2018-10-04] MEDS: Ampicillin/Sulbactam Sod 3 GM in NS 110 ML IV SCH ×4 (00:35→17:09)
[2018-10-04 04:00] VITALS: BP 127/62
[2018-10-04 05:39] LABS: BASOPHILS % (AUTO) 0.4 % (0.0-2.0); HEMATOCRIT 25.6 % (37.0-47.0); HEMOGLOBIN 8.7 G/DL (12.0-16.0); LYMPHOCYTES % (AUTO) 9.6 % (20.0-45.0); MEAN CORPUSCULAR VOLUME 79 FL (80-99); MONOCYTES % (AUTO) 8.7 % (1.0-10.0); NEUTROPHILS % (AUTO) 74.3 % (45.0-75.0); PLATELET COUNT 205 K/UL (150-450); RED BLOOD COUNT 3.24 M/UL (4.20-5.40); RED CELL DISTRIBUTION WIDTH 14.6 % (11.6-14.8); WHITE BLOOD COUNT 7.1 K/UL (4.8-10.8)
[2018-10-04 05:56] LABS: ALANINE AMINOTRANSFERASE 23 U/L (12-78); ALBUMIN 2.4 G/DL (3.4-5.0); ALBUMIN/GLOBULIN RATIO 0.6 (1.0-2.7); ALKALINE PHOSPHATASE 53 U/L (46-116); ANION GAP 7 mmol/L (5-15); ASPARTATE AMINO TRANSFERASE 31 U/L (15-37); BILIRUBIN,TOTAL 0.4 MG/DL (0.2-1.0); BLOOD UREA NITROGEN 8 mg/dL (7-18); CALCIUM 8.2 MG/DL (8.5-10.1); CARBON DIOXIDE 29 MMOL/L (21-32); CHLORIDE 102 MMOL/L (98-107); CREATININE 0.8 MG/DL (0.55-1.30); POTASSIUM 3.4 MMOL/L (3.5-5.1); SODIUM 138 MMOL/L (136-145)
[2018-10-04] MEDS: NovoLOG Insulin Flexpen SUBQ SCH ×4 (06:00→18:20)
[2018-10-04] MEDS: PCA shift volume MISC SCH ×2 (07:00→19:02)
--- NOTE | 2018-10-04 07:15 | NUR ---
NURSE NOTES:WALKING ROUNDS DONE WITH NIGHT RN(MAXIM)RECEIVED PATIENT DROWSY,AROUSABLE,PAIN LEVEL 4/10,ABDOMINAL DRSNG.C/D/I.,2JPS WITH SEROUS DRAINAGE,FENTON,GT WITH GREENISH OUTPUT,ILEO WITH BROWNISH OUTPUT.PICC LINE ON CHRISTOPHE PATENT,PLAN OF CARE DISCUSSED.WILL CONTINUE TO MONITOR.
[2018-10-04 08:00] VITALS: BP 109/57
--- NOTE | 2018-10-04 08:00 | NUR ---
NURSE NOTES:DESATURATE TO 95 WHEN IN ROOM AIR,ENCOURAGED TO USE I/S,2LITERS N/C APPLIED AND ON CONT. PULSE OX. Addendum: 10/04/18 at 1754 by SEBASTIAN KULKARNI RN CORRECTION FOR ABOVE NOTES: DESATURATE TO 90% ON ROOM AIR.
--- NOTE | 2018-10-04 08:06 | NUR ---
HAND-OFF: Report given to ARI Mcgrath. Patient stable. Endorsed urine output 470 ml.
--- NOTE | 2018-10-04 08:40 | NUR ---
NURSE NOTES:SEEN BY DR. ANTON,AWARE RE:PATIENT BEING DROWSY,AND FREQUENT USED OF DILAUDID SUB Q FR.EMPLOYEE REPRESENTATIVE,AND DESATURATE WHEN IN ROOM AIR.ORDERS CARRIED OUT.
[2018-10-04] MEDS ORDERED: Rate Change PCA 1 Each MISC PRN (08:48)
[2018-10-04] MEDS ORDERED: DiphenhydrAMINE 50mg/ml Inj IVP PRN (08:48)
[2018-10-04] MEDS ORDERED: Naloxone 0.4mg/ml Inj IVP PRN (08:48)
[2018-10-04] MEDS ORDERED: HYDROmorphone 1mg/ml Carpuject SUBQ PRN (08:57)
--- NOTE | 2018-10-04 08:57 | General Progress Note ---
Progress Note Progress Note AVSS Sedated this morning - requesting breakthrough dilaudid on the clock despite basal infusion and demand dosing and Toradol IV q6h prn and Ativan sublingual Ambulated in hallway yesterday x 1 Abdomen soft, mildly distended, incision clean ,stoma pink, bhavin scant seroous Perineum incision clean, JPs 20 + 16 Urine 1620 Gastrostomy 970 bilious BCIR fileo 370 IWBC down 7100 Hgb stable 8.7 on Venofer K 3.4 Imp. Ileus Plan: continue TPN, antibiotics, gillis, Venofer f/u labs ambulate BID Chung Gonzales MD Oct 04, 2018 08:57
[2018-10-04] MEDS: D5 1/2NS w/KCl 40meq 1000ml 1,000 ML IV SCH (09:55)
[2018-10-04] MEDS ORDERED: Heparin 5000 units/ml inj SUBQ SCH (10:00)
[2018-10-04] MEDS: LORazepam 1mg tab SL PRN ×2 (10:11→19:01)
--- NOTE | 2018-10-04 10:11 | NUR ---
NURSE NOTES:C/O STOMACH PAIN,BUT REQUESTING FOR DILAUDID SUB Q,ADVICED RE:TRY ATIVAN SUBLINGUAL FIRST.PATIENT AGREED.WILL MONITOR.
--- NOTE | 2018-10-04 11:40 | NUR ---
NURSE NOTES:AMBULATED IN HALLWAY USING FRONT WHEELED WALKER WITH PHYSICAL THERAPY.TOLERATED X 2 ROUNDS.
[2018-10-04 12:00] VITALS: BP 116/65
--- NOTE | 2018-10-04 12:00 | NUR ---
NURSE NOTES:MORE AWAKE, WATCHING TV,NO C/O PAIN.TAKING ICE CHIPS NEEDED.
--- NOTE | 2018-10-04 15:00 | NUR ---
NURSE NOTES:OFFERED TO WALK BUT PATIENT REFUSED,EXPLAINED THE IMPORTANCE OF AMBULATION BUT STATED"I HEARD EVERY SINGLE THING OF WHAT DR. ANTON SAID BUT ITS LIKE 5 PEOPLE TELLING ME THE SAME THING"
--- NOTE | 2018-10-04 15:10 | NUR ---
CASE MANAGEMENT: REVIEW SI: ULCERATIVE COLITIS TOTAL PROCTOCOLECTOMY, CREATION OF CONTINENT POUCH 10/01 T 99.1 HR 99 RR 18 BP 109/57 SAT 95% NC/2L H/H 8.7/25.6 IS: VIT K SQ QWEEK HEPARIN SQ Q12HR D5 1/2 NS w/KCl 40mEq IVF @50ML/HR TPN IV VENOFER IV QHS SYSTEM SALES CONSULTANT DILAUDID PT EVAL MED/SURG STATUS DCP: PATIENT IS FROM HOME
[2018-10-04 16:00] VITALS: BP 111/64
--- NOTE | 2018-10-04 18:30 | NUR ---
NURSE NOTES: AWAKE USING INCENTIVE SPIROMETER EXERCISE.NO C/O PAIN.NEEDS WELL ATTENDED.
[2018-10-04] MEDS ORDERED: NS 275ml ONE (18:44)
[2018-10-04] MEDS ORDERED: Tubing IV Secondary IV ONE (18:44)
[2018-10-04] MEDS ORDERED: NS Irrig 1000ml ONE (18:44)
--- NOTE | 2018-10-04 19:16 | NUR ---
HAND-OFF: Report given to MAXIM CHAPMAN,PATIENT WAS JUST GIVEN ATIVAN S/L FOR C/O STOMACH MUSCLE SPASM.ENDORSED RE:FOR REASESSMENT.
[2018-10-04 20:00] VITALS: BP 101/63
--- NOTE | 2018-10-04 20:31 | NUR ---
NURSE NOTES: Patient in bed, aaox4, lethargic. VSS, no shortness of breath 2L nasal cannula. ZOfran IVP given for nausea. Pain 5/10 anterior abdomen.ALLIED HEALTH INSTRUCTOR teaching reinforced. Dressing c/d/i. Ileo and GT draining well.JASON drains compressed, output serosanguineous. Son at bedside. Bed low, call light within reach.
[2018-10-04] MEDS: Iron Sucrose 100 MG in NS 55 ML IV SCH (21:09)
[2018-10-04] MEDS: Heparin 5000 units/ml inj SUBQ SCH (21:12)
[2018-10-04] MEDS: [UNRECOGNIZED DRUG - NUTRITION] IV SCH ×2 (21:14)
[2018-10-05] VITALS: BP 117/65
[2018-10-05] MEDS: Ampicillin/Sulbactam Sod 3 GM in NS 110 ML IV SCH ×5 (00:38→23:56)
[2018-10-05] MEDS: NovoLOG Insulin Flexpen SUBQ SCH ×4 (00:39→16:40)
[2018-10-05] MEDS: LORazepam 1mg tab SL PRN ×4 (00:41→20:31)
[2018-10-05 04:00] VITALS: BP 120/66
[2018-10-05] MEDS: Ketorolac 30mg Inj IV PRN ×3 (04:06→21:29)
[2018-10-05 06:00] LABS: HEMOGLOBIN 9.2 G/DL (12.0-16.0); LYMPHOCYTES % (AUTO) 10.7 % (20.0-45.0); MEAN CORPUSCULAR VOLUME 79 FL (80-99); NEUTROPHILS % (AUTO) 67.4 % (45.0-75.0); PLATELET COUNT 288 K/UL (150-450); RED BLOOD COUNT 3.52 M/UL (4.20-5.40); RED CELL DISTRIBUTION WIDTH 14.7 % (11.6-14.8); WHITE BLOOD COUNT 6.5 K/UL (4.8-10.8)
[2018-10-05 06:14] LABS: ALANINE AMINOTRANSFERASE 21 U/L (12-78); ALBUMIN 2.3 G/DL (3.4-5.0); ALBUMIN/GLOBULIN RATIO 0.5 (1.0-2.7); ALKALINE PHOSPHATASE 48 U/L (46-116); ANION GAP 7 mmol/L (5-15); ASPARTATE AMINO TRANSFERASE 21 U/L (15-37); BILIRUBIN,TOTAL 0.3 MG/DL (0.2-1.0); BLOOD UREA NITROGEN 4 mg/dL (7-18); CALCIUM 8.2 MG/DL (8.5-10.1); CARBON DIOXIDE 28 MMOL/L (21-32); CHLORIDE 102 MMOL/L (98-107); CREATININE 0.7 MG/DL (0.55-1.30); PHOSPHORUS 2.4 MG/DL (2.5-4.9); POTASSIUM 3.4 MMOL/L (3.5-5.1); SODIUM 137 MMOL/L (136-145)
[2018-10-05] MEDS: D5 1/2NS w/KCl 40meq 1000ml 1,000 ML IV SCH (06:50)
[2018-10-05] MEDS: PCA shift volume MISC SCH ×2 (07:00→19:28)
[2018-10-05 08:00] VITALS: BP 93/58
--- NOTE | 2018-10-05 08:00 | NUR ---
NURSE NOTES: Received report from Tasha CHAPMAN, pt a/a/o x4 laying in bed, pt is drowsy, sleepy but able to follow commands. No c/o of SOB pt's O2 sat at 98% on O2 @2L n/c, RN reinforced of the importance of keeping O2 in pt verbalized understanding. surgical dressing dry and intact.PICC line in place running: D5 1/4NS +40mEq@50ml/hr and TPN@74ml/hr, NPO except ice chips and meds. Ileo drainage bag in place. total ileo overnight was:145ml, GT in place, draining well total GT during shift stacker: 670ml, pt also has JASON's x2 over night drainage: 7ml each. Jung cath in place, over night out put: 850ml. pt's son at bed side. call light within reach. bed in lowest position. side rales up x2. I will f/u as needed.
--- NOTE | 2018-10-05 08:12 | NUR ---
HAND-OFF: Report given to ARI Sellers. Patient stable.
[2018-10-05] MEDS: Heparin 5000 units/ml inj SUBQ SCH ×2 (08:28→20:34)
[2018-10-05] MEDS ORDERED: PCA HYDROmorphone 1mg/ml 30 ML IV PRN (09:41)
[2018-10-05] MEDS ORDERED: DiphenhydrAMINE 50mg/ml Inj IVP PRN (09:41)
[2018-10-05] MEDS ORDERED: Naloxone 0.4mg/ml Inj IVP PRN (09:41)
[2018-10-05] MEDS ORDERED: Rate Change PCA 1 Each MISC PRN (09:41)
--- NOTE | 2018-10-05 09:42 | General Progress Note ---
Progress Note Progress Note AVSS Drowsy much of the time but ambulated in hallways yesterday Abdomen soft, mildly distended, mild diffuse tenderness, incision clean, stoma pink, bhavin-nil Perineum incision clean. JASON #2 removed(9cc) JASON #1 12cc Urine 2150 BCIr ileo 565 enteric Gastrostomy 940 bilious WBC 6500 Hgb up 9.2 P low 2.4 Mg 1.8 Imp. Slowly resolving ileus Plan: continue npo, TPN, Venofer infusions Potassium phosphate infusion continue q12h SQ heparin, continue Chung Vargas MD Oct 05, 2018 09:42
--- NOTE | 2018-10-05 09:46 | NUR ---
NURSE NOTES: During hourly rounds with Dr. Gonzales, surgical dressing was changes. Prabhu#2 was removed. pt was able to tolerated well. also per MD CLINICAL TRIALS MANAGER setting changed to 0 continues and changed bolus from 0.2 to 0.1 bolus lock out every 6min. I will f/u as needed.
[2018-10-05] MEDS ORDERED: Potassium Phosphate 30 MM in NS 275 ML IV ONE (11:00)
[2018-10-05 12:00] VITALS: BP 103/62
--- NOTE | 2018-10-05 14:30 | NUR ---
NURSE NOTES: pt refused to walk with PT x2 due to pain and that she feels tired. RN offered brakethru Ketoralac as ordered but even then pt refused to walk with PT and with RN I will f/u as needed.
[2018-10-05 16:00] VITALS: BP 115/58
--- NOTE | 2018-10-05 17:58 | NUR ---
CASE MANAGEMENT: REVIEW 10/05/2018 SI: ULCERATIVE COLITIS TOTAL PROCTOCOLECTOMY, CREATION OF CONTINENT POUCH 10/01 T 97.3 HR 89 RR 20 B/P 115/58 SATS 98% ON RA K 3.4 BUN 4 GLU 148 CA 8.2 PHOS 2.4 IS: IVF @ 50 mL/HR FLAGYL IV Q6H UNASYN IV Q6H VENOFER IV QHS BIOMETRIC TECHNICIAN PER PARAMETERS TPN @ 74 mL/HR INSULIN ASPART SUBQ Q6H MED/SURG STATUS DCP: PATIENT IS FROM HOME
--- NOTE | 2018-10-05 18:00 | NUR ---
NURSE NOTES: RN changed PICC line dressing since it was loose. RN and Mary RN offered and encouraged pt to walk but pt REFUSED again stating that she doesn't feel like it and that she has pain. I will f/u as needed.
--- NOTE | 2018-10-05 19:31 | NUR ---
HAND-OFF: Report given to Tabitha CHAPMAN. pt in stable condition. I&O's during my shift Ileostomy: 80-300= 200ml GTube= 80-400= 320ml Jung Cath: 550ml JASON #1: 2.5ml
--- NOTE | 2018-10-05 19:32 | NUR ---
NURSE NOTES: Received report & pt from ARI Figueroa. Pt lying in bed, a&ox4, in room air, family member at bedside. No s/s of acute distress & c/o 8/10 pain. No PRN med due yet & will give PRN pain med when due & pt verbalized understanding. Ileo, GG, G/C intact & draining to gravity. JASON intact & to bulb suction. Surgical dressing C/D/I. PICC site intact with IVF & TPN running as ordered. DEMONSTRATOR SEWING TECHNIQUES settings checked. Bed in lowest position, DEMONSTRATOR SEWING TECHNIQUES pump & call light within reach. Will continue to monitor. Addendum: 10/05/18 at 2223 by Tabitha Lowe RN CORRECTION: Ileo, GT, F/C intact & draining to gravity
[2018-10-05 20:00] VITALS: BP 134/75
[2018-10-05] MEDS: [UNRECOGNIZED DRUG - NUTRITION] IV SCH ×2 (20:33)
[2018-10-05] MEDS: Iron Sucrose 100 MG in NS 55 ML IV SCH (20:37)
[2018-10-06] VITALS: BP 130/76
[2018-10-06] MEDS: NovoLOG Insulin Flexpen SUBQ SCH ×5 (00:07→23:53)
[2018-10-06] MEDS: LORazepam 1mg tab SL PRN ×5 (00:53→22:08)
--- NOTE | 2018-10-06 02:00 | NUR ---
NURSE NOTES: transferred pt from bed to chair. still with c/o 02/14 pain. Encouraged to ambulate & pt states "M Addendum: 10/06/18 at 0542 by Tabitha Lowe RN @0200 Encouraged to ambulate & pt states "I'm gonna do a little bit of both in a bit". Few minutes later, pt wants to go back to bed & did not want to ambulate.
[2018-10-06] MEDS: D5 1/2NS w/KCl 40meq 1000ml 1,000 ML IV SCH ×3 (02:36→22:08)
[2018-10-06] MEDS: Zolpidem 5mg tab ORAL PRN (02:36)
[2018-10-06] MEDS: Ketorolac 30mg Inj IV PRN ×3 (03:31→20:44)
[2018-10-06 04:00] VITALS: BP 117/66
[2018-10-06] MEDS: Ampicillin/Sulbactam Sod 3 GM in NS 110 ML IV SCH ×4 (05:01→23:44)
[2018-10-06 06:40] LABS: BASOPHILS % (AUTO) 0.4 % (0.0-2.0); EOSINOPHILS % (AUTO) 8.1 % (0.0-3.0); HEMATOCRIT 26.5 % (37.0-47.0); HEMOGLOBIN 8.7 G/DL (12.0-16.0); LYMPHOCYTES % (AUTO) 10.2 % (20.0-45.0); MEAN CORPUSCULAR VOLUME 80 FL (80-99); MONOCYTES % (AUTO) 8.5 % (1.0-10.0); NEUTROPHILS % (AUTO) 72.9 % (45.0-75.0); PLATELET COUNT 273 K/UL (150-450); RED BLOOD COUNT 3.32 M/UL (4.20-5.40); RED CELL DISTRIBUTION WIDTH 15.6 % (11.6-14.8); WHITE BLOOD COUNT 7.1 K/UL (4.8-10.8)
[2018-10-06] MEDS: PCA shift volume MISC SCH ×2 (07:00→19:24)
[2018-10-06 07:02] LABS: ALANINE AMINOTRANSFERASE 19 U/L (12-78); ALBUMIN 2.1 G/DL (3.4-5.0); ALBUMIN/GLOBULIN RATIO 0.5 (1.0-2.7); ALKALINE PHOSPHATASE 54 U/L (46-116); ANION GAP 7 mmol/L (5-15); ASPARTATE AMINO TRANSFERASE 17 U/L (15-37); BILIRUBIN,TOTAL 0.2 MG/DL (0.2-1.0); BLOOD UREA NITROGEN 9 mg/dL (7-18); CALCIUM 8.3 MG/DL (8.5-10.1); CARBON DIOXIDE 29 MMOL/L (21-32); CHLORIDE 106 MMOL/L (98-107); CREATININE 0.8 MG/DL (0.55-1.30); PHOSPHORUS 2.7 MG/DL (2.5-4.9); POTASSIUM 3.5 MMOL/L (3.5-5.1); SODIUM 142 MMOL/L (136-145)
--- NOTE | 2018-10-06 07:29 | NUR ---
HAND-OFF: Report given to Marlon Rodriguez RN. Pt in stable condition.
--- NOTE | 2018-10-06 07:30 | NUR ---
NURSE NOTES: Patient lying in bed awake. Complain of pain 7/10 on [facility] [employer] DEPART[facility] for pain management. Will continue to monitor. Skin intact and dry. Surgical dressing intact and dry. Ileostomy drainage bag and G-tube drainage bag patent and draining well. Jung catheter and JASON drainage bag patent and draining well. PICC line dressing intact and dry. Bed lowest position. Call light within reach. Will continue to monitor.
[2018-10-06 08:00] VITALS: BP 125/71
[2018-10-06] MEDS ORDERED: PCA HYDROmorphone 1mg/ml 30 ML IV PRN ×3 (08:00→13:15)
[2018-10-06] MEDS ORDERED: Naloxone 0.4mg/ml Inj IVP PRN (08:45)
[2018-10-06] MEDS ORDERED: Rate Change PCA 1 Each MISC PRN (08:45)
--- NOTE | 2018-10-06 09:05 | General Progress Note ---
Progress Note Progress Note AVSS Continued c/o abdominal pain and spasms. Not able to ambulate. No fever or sweats Abdomen mildly distended, soft, diffuse tenderness, incision clean, stoma pink, bhavin - nil Perineum clean, JASON 7cc serosang Urine 1450 clear urine Gastrostomy 710 bilious BCIR ileo 420 bilious/enteric WBC 7100 Hgb 8.7 (stable) BMP - ok Imp. Abdominal pain more than expected POD#5 despite normal WBC and afebrile and no tachycardia Plan; STAT ST scan abd+pelvis with oral contrast given via gastrostomy continue npo, TPN, Chung Vargas MD Oct 06, 2018 09:05
[2018-10-06] MEDS: Heparin 5000 units/ml inj SUBQ SCH ×2 (09:21→20:32)
[2018-10-06] MEDS ORDERED: DiphenhydrAMINE 50mg/ml Inj IVP PRN (09:41)
[2018-10-06] MEDS ORDERED: Potassium Phosphate 30 MM in NS 275 ML IV ONE (10:00)
--- NOTE | 2018-10-06 11:15 | NUR ---
NURSE NOTES: Patient off unit for procedure in stable condition.
--- NOTE | 2018-10-06 11:32 | NUR ---
CASE MANAGEMENT:REVIEW 10/06/18 SI: POD #5 C/O ABDOMINAL PAIN 97.6 87 18 125/71 95% ON RA H/H-8.7/26.5 GLUCOSE+169 CA-8.3 IS: IV KCL X1 IV FLAGYL Q6HRS IV AMPICILLIN Q6HRS MILKER MACHINE DILAUDID IVF@75/HR TPN/IL @ 74/HR IV VENOFER QHS : MED/SURG STATUS 3 EAST PLAN: CONTINUE NPO AND TPN CT ABDOMEN
--- NOTE | 2018-10-06 11:35 | NUR ---
NURSE NOTES: Patient came back from procedure in stable condition.
[2018-10-06 12:00] VITALS: BP 131/85
--- NOTE | 2018-10-06 12:20 | Diagnostic Imaging Report ---
Indication: Abdominal pain, history of proctocolectomy and continent ileostomy Technique: Spiral acquisitions obtained through the abdomen and pelvis. Patient given oral contrast. No IV contrast utilized, per referring physician request.. Multiplanar reconstructions were generated. Total dose length product 745.67 mGycm. CTDIvol(s) 13.45 mGy. Dose reduction achieved using automated exposure control Comparison: None Findings: There are midline skin keegan and lower abdominal/upper pelvic midline incision. There is evidence of prior proctocolectomy. There is a pelvic continent ileostomy to the right of midline, which contains a catheter. A surgical drain is seen in the perineum and lower pelvic midline. Gas bubbles are seen within the inferior pelvic fat and there is some edema of the presacral fat, presumably related to the prior surgery. Some gas bubbles are seen in the anterior peritoneal space and in the silvestre hepatis as well as larger collection of free intraperitoneal gas in the right upper quadrant and adjacent to the lesser curvature the stomach.. No unusual fluid collections are evident. There is a gastrostomy tube. Ingested contrast has traversed only the proximal small bowel. Small bowel loops are overall dilated, gas and fluid-filled. There is suggestion of a few scattered nondilated small bowel loops but definite transition zone is not identified. No definite discrete fluid collections are demonstrated. A trace amount of free intraperitoneal fluid is seen adjacent to the tip of the right hepatic lobe and in the right paracolic gutter. Lack of IV contrast limits assessment of the solid organs. The gallbladder is distended. No definite gallstones. The liver, bile ducts, pancreas, spleen, adrenals, kidneys are unremarkable. No renal or ureteral calculi, hydronephrosis or hydroureter. The bladder contains a Jung catheter. The balloon is not definitely visualized. There is a small amount of retained urine within the bladder despite Jung catheter. Gas within the bladder lumen is presumably related to the Jung catheterization. There are small bilateral pleural effusions. Atelectasis and consolidation are seen in both lower lobes and in the right middle lobe and posterior inferior lingula. The bones are unremarkable. Impression: Postsurgical changes, as described. Acute Dilated small bowel loops, evidence of slow transit of contrast. Findings most likely represent postoperative ileus. Possibility of distal small bowel obstruction should also be considered but is deemed less likely Bilateral basilar atelectasis, consolidation, and small bilateral pleural effusions No other unusual postoperative changes Jung catheter. Small amount retained urine despite Jung catheter The CT scanner at [facility] is accredited by the [employer] and the scans are performed using protocols designed to limit radiation exposure to as low as reasonably achievable to attain images of sufficient resolution adequate for diagnostic evaluation.
[2018-10-06] MEDS: TransDerm Scop 1mg/72HR Patch TDERMAL SCH (13:23)
--- NOTE | 2018-10-06 14:00 | NUR ---
NURSE NOTES: downtime order for KUB at 1500 ordered and signed by Dr. Gonzales CN faxed the order as instructed by radiology will follow up.
--- NOTE | 2018-10-06 14:42 | NUR ---
RD ASSESSMENT & RECOMMENDATIONS SEE CARE ACTIVITY FOR COMPLETE ASSESSMENT DAILY ESTIMATED NEEDS: Needs based on surgery 64.8kg 25-30 kcals/kg 6373-3236 total kcals 1-2 g protein/kg 65-130 g total protein 25-30 mL/kg 5264-2055 total fluid mLs NUTRITION DIAGNOSIS: Altered GI fxn r/t ileus, proctocolectomy as evidenced by pt w/ h/o ulcerative colitis, now s/p new BCIR, ileus, NPO, on TPN. CURRENT DIET: NPO, on TPN PO DIET RECOMMENDATIONS: Diet per MD PARENTERAL NUTRITION RECOMMENDATIONS: D/AA Rate: 65 IL Rate: 9 Total Rate: 74 Volume: 1776 % Dextrose: 19 % AA: 5.2 Energy (kcals/kg): 1764.3 Protein (g/kg protein): 81 Nonprotein KCALS: 1440 GIR (mg CHO/kg/min): 3.2 % Fat KCALS: 25 NCP: N Ratio: 111:1 TPN Comment: - Maintain current TPN : D19% with AA 5.2% @65ml/hr + IL 20% @9ml/hr-> all 3:1 - TPN @goal meets 100% est kcal and pro needs; provides 27kcal per adj kg, 1.3g pro/adj kg. - MONITOR: BG, LFT's, and LYTES daily on TPN ADDITIONAL RECOMMENDATIONS: 1) MONITOR DAILY ON TPN: BG, LFT's, and LYTES 2) Weekly standing weights as able 3) Monitor for ability to start clears
[2018-10-06 16:00] VITALS: BP 108/64
--- NOTE | 2018-10-06 16:27 | NUR ---
NURSE NOTES: CN called and spoke to radiology regarding the times 1500 KUB order they stated they will come and perform the order no one came to carry out the order CN called again and stated they will come will continue to follow up.
--- NOTE | 2018-10-06 16:41 | NUR ---
NURSE NOTES: Radiology requested the order to be placed in the [facility] even if it is a down time order written and faxed CN placed the order in will continue to follow up.
--- NOTE | 2018-10-06 18:05 | NUR ---
NURSE NOTES: X-ray taken and patient tolerated procedure well. Will continue to monitor.
--- NOTE | 2018-10-06 19:30 | NUR ---
HAND-OFF: Report given to Itzel CHAPMAN. Patient in stable condition.
--- NOTE | 2018-10-06 19:45 | NUR ---
NURSE NOTES: Pt sitting in bed w/bed in lowest position and call light/WOMEN'S STUDIES PROFESSOR button within reach. Pt A&Ox4, VSS, and in no apparent distress. CHRISTOPHE PICC line intact/asymptomatic w/IVF & TPN running; hypoactive bowel sounds auscultated; dressing C/D/I; and drains patent/draining well. Will continue to monitor.
[2018-10-06] MEDS: [UNRECOGNIZED DRUG - NUTRITION] IV SCH ×2 (20:31)
[2018-10-06] MEDS: Iron Sucrose 100 MG in NS 55 ML IV SCH (20:33)
[2018-10-06 20:47] VITALS: BP 128/68
[2018-10-07 00:32] VITALS: BP 119/70
[2018-10-07] MEDS: HYDROmorphone 1mg/ml Carpuject SUBQ PRN ×2 (01:20→22:21)
[2018-10-07 04:00] VITALS: BP 124/65
[2018-10-07 05:22] LABS: BASOPHILS % (AUTO) 0.8 % (0.0-2.0); EOSINOPHILS % (AUTO) 7.7 % (0.0-3.0); HEMATOCRIT 28.1 % (37.0-47.0); HEMOGLOBIN 9.1 G/DL (12.0-16.0); LYMPHOCYTES % (AUTO) 14.4 % (20.0-45.0); MEAN CORPUSCULAR VOLUME 80 FL (80-99); MONOCYTES % (AUTO) 9.4 % (1.0-10.0); NEUTROPHILS % (AUTO) 67.7 % (45.0-75.0); PLATELET COUNT 308 K/UL (150-450); RED BLOOD COUNT 3.53 M/UL (4.20-5.40); RED CELL DISTRIBUTION WIDTH 16.1 % (11.6-14.8); WHITE BLOOD COUNT 8.2 K/UL (4.8-10.8)
[2018-10-07 06:00] LABS: ALANINE AMINOTRANSFERASE 17 U/L (12-78); ALBUMIN 2.2 G/DL (3.4-5.0); ALBUMIN/GLOBULIN RATIO 0.6 (1.0-2.7); ALKALINE PHOSPHATASE 79 U/L (46-116); ANION GAP 9 mmol/L (5-15); ASPARTATE AMINO TRANSFERASE 19 U/L (15-37); BILIRUBIN,TOTAL 0.2 MG/DL (0.2-1.0); BLOOD UREA NITROGEN 11 mg/dL (7-18); CALCIUM 8.3 MG/DL (8.5-10.1); CARBON DIOXIDE 24 MMOL/L (21-32); CHLORIDE 105 MMOL/L (98-107); CREATININE 0.6 MG/DL (0.55-1.30); PHOSPHORUS 3.2 MG/DL (2.5-4.9); POTASSIUM 4.3 MMOL/L (3.5-5.1); SODIUM 138 MMOL/L (136-145)
[2018-10-07] MEDS: Ampicillin/Sulbactam Sod 3 GM in NS 110 ML IV SCH ×3 (06:02→17:44)
[2018-10-07] MEDS: NovoLOG Insulin Flexpen SUBQ SCH ×3 (06:13→17:52)
[2018-10-07] MEDS: PCA shift volume MISC SCH ×2 (07:15→19:00)
--- NOTE | 2018-10-07 07:16 | NUR ---
HAND-OFF: Report given to ARI Mason.
--- NOTE | 2018-10-07 07:30 | NUR ---
NURSE NOTES: Patient lying in bed awake. Complain of pain 7/10 on abdomen area. On CLOTHING PRESSER for pain management and will continue to monitor. Skin intact and dry. Surgical dressing intact and dry. Ileostomy drainage bag, G-tube drainage bag, JASON drainage bag, and Jung catheter patent and draining well. PICC line dressing intact and dry. Bed lowest position. Call light and CLOTHING PRESSER button within reach. Will continue to monitor.
[2018-10-07 08:00] VITALS: BP 119/72
--- NOTE | 2018-10-07 08:44 | General Progress Note ---
Progress Note Progress Note Continues afebrile,VSS. Having intermittent severe transient mid-abdominal cramping with secondary nausea, then comfortable again. Abdomen soft, mild distention, mild diffuse tenderness, incision clean, stoma pink, bhavin - nil Urine 2275 Gastrostomy 1235 BCIR ileo 1440 (had contrast for CT scan) labs all satisfactory/stable WBC 8200 Hgb 9.1 but albumin 2.2 Imp. Partial SBO with intermittent cramping pain Plan: continue npo, TPN, Jung, antibiotics, continuous drainage of Leal Pouch If her pains persist will need f/u CT scan Chung Gonzales MD Oct 07, 2018 08:44
[2018-10-07] MEDS: Heparin 5000 units/ml inj SUBQ SCH ×2 (08:53→20:22)
--- NOTE | 2018-10-07 09:00 | NUR ---
NURSE NOTES: Flushed Ileostomy and G-tube as ordered. Patient complain of discomfort on right lower quadrant. Ileostomy drainage bag patent and draining well. Will continue to monitor.
[2018-10-07] MEDS ORDERED: Fluconazole 100mg tab ORAL SCH (09:15)
[2018-10-07] MEDS ORDERED: Naloxone 0.4mg/ml Inj IVP PRN (09:30)
--- NOTE | 2018-10-07 09:30 | NUR ---
NURSE NOTES: Reassessed discomfort on right lower quadrant. Per patient: discomfort decreased and feel little better. Will continue to monitor.
[2018-10-07] MEDS ORDERED: PCA HYDROmorphone 1mg/ml 30 ML IV PRN (09:45)
[2018-10-07] MEDS ORDERED: Rate Change PCA 1 Each MISC PRN (09:45)
[2018-10-07] MEDS: Nystatin Susp 500,000 units/5ml ORAL SCH ×4 (09:46→20:21)
--- NOTE | 2018-10-07 09:55 | Diagnostic Imaging Report ---
Indication: Abdominal pain, abnormal recent CT scan Technique: Supine view of the abdomen Comparison: CT scan of earlier the same day Findings: Again demonstrated are dilated small bowel loops. No definite enteric contrast is visible. There are midline skin keegan. A peritoneal drain is present. A gastrostomy balloon is present Impression: Dilated small bowel loops, also previously reported and not significantly changed No enteric contrast visualized. Uncertain as to whether this is due to limited visibility of the previously ingested enteric contrast, or contrast has passed through the GI tract. Postsurgical changes, as described This agrees with the preliminary interpretation provided overnight by [facility] teleradiology service.
--- NOTE | 2018-10-07 10:50 | NUR ---
NURSE NOTES: Patient walked short distance with PT and went back to bed due to nauseous and pain. Will continue to monitor.
--- NOTE | 2018-10-07 10:59 | NUR ---
CASE MANAGEMENT:REVIEW 10/07/18 SI: POD #6 C/O ABDOMINAL PAIN 97.9 82 19 119/72 96% on ra H/H-9.1/28.1 GLUCOSE+136 CA-8.3 IS: IV KCL X1 IV FLAGYL Q6HRS IV AMPICILLIN Q6HRS METALIZING SUPERVISOR DILAUDID IVF@75/HR TPN/IL @ 74/HR IV VENOFER QHS : MED/SURG STATUS 3 EAST PLAN: CONTINUE NPO AND TPN CT ABDOMEN (+) DILATED SMALL BOWEL LOOPS
[2018-10-07] MEDS: D5 1/2NS w/KCl 40meq 1000ml 1,000 ML IV SCH (11:38)
--- NOTE | 2018-10-07 11:40 | NUR ---
NURSE NOTES: Patient complained pressure like pain on lower quadrant of abdomen. Given pain medication as ordered. Will continue to monitor.
[2018-10-07 12:00] VITALS: BP 123/69
--- NOTE | 2018-10-07 15:15 | NUR ---
NURSE NOTES: Patient sit on chair short period of time and go back to bed. Given update to and no new order at this time. Will continue to monitor.
[2018-10-07] MEDS: LORazepam 1mg tab SL PRN ×2 (15:16→20:31)
[2018-10-07 16:00] VITALS: BP 119/72
--- NOTE | 2018-10-07 19:27 | NUR ---
NURSE NOTES: Patient complained squeezing and pulling pain on right lower quadrant. Given pain medication as ordered. Will continue to monitor.
--- NOTE | 2018-10-07 19:30 | NUR ---
NURSE NOTES: Pt lying in bed w/bed in lowest position and call light/TRIPLE VALVE TESTER button within reach. Pt A&Ox4, VSS, and in no apparent distress at this time. CHRISTOPHE PICC line intact/asymptomatic w/IVF & TPN running; surgical dressing C/D/I; and drain patent/draining well. Will continue to monitor.
--- NOTE | 2018-10-07 19:30 | NUR ---
HAND-OFF: Report given to Itzel CHAPMAN. Patient in stable condition.
[2018-10-07 20:00] VITALS: BP 138/67
[2018-10-07] MEDS: [UNRECOGNIZED DRUG - NUTRITION] IV SCH ×2 (20:21)
[2018-10-08] VITALS: BP 115/61
[2018-10-08] MEDS: Ampicillin/Sulbactam Sod 3 GM in NS 110 ML IV SCH ×2
[2018-10-08] MEDS: NovoLOG Insulin Flexpen SUBQ SCH ×4 (00:05→17:48)
[2018-10-08] MEDS: D5 1/2NS w/KCl 40meq 1000ml 1,000 ML IV SCH ×2 (00:06→12:24)
[2018-10-08 04:00] VITALS: BP 129/74
[2018-10-08 05:23] LABS: BASOPHILS % (AUTO) 1.4 % (0.0-2.0); EOSINOPHILS % (AUTO) 7.3 % (0.0-3.0); HEMATOCRIT 29.5 % (37.0-47.0); HEMOGLOBIN 9.6 G/DL (12.0-16.0); LYMPHOCYTES % (AUTO) 14.5 % (20.0-45.0); MEAN CORPUSCULAR VOLUME 81 FL (80-99); MONOCYTES % (AUTO) 8.8 % (1.0-10.0); PLATELET COUNT 341 K/UL (150-450); RED BLOOD COUNT 3.66 M/UL (4.20-5.40); RED CELL DISTRIBUTION WIDTH 17.1 % (11.6-14.8); WHITE BLOOD COUNT 8.8 K/UL (4.8-10.8)
[2018-10-08 05:40] LABS: ALANINE AMINOTRANSFERASE 30 U/L (12-78); ALBUMIN 2.4 G/DL (3.4-5.0); ALBUMIN/GLOBULIN RATIO 0.5 (1.0-2.7); ALKALINE PHOSPHATASE 98 U/L (46-116); ANION GAP 8 mmol/L (5-15); ASPARTATE AMINO TRANSFERASE 53 U/L (15-37); BILIRUBIN,TOTAL 0.3 MG/DL (0.2-1.0); BLOOD UREA NITROGEN 10 mg/dL (7-18); CALCIUM 8.5 MG/DL (8.5-10.1); CARBON DIOXIDE 26 MMOL/L (21-32); CHLORIDE 101 MMOL/L (98-107); CREATININE 0.7 MG/DL (0.55-1.30); POTASSIUM 4.3 MMOL/L (3.5-5.1); SODIUM 135 MMOL/L (136-145)
--- NOTE | 2018-10-08 07:25 | NUR ---
HAND-OFF: Report given to ARI Figueroa.
[2018-10-08] MEDS: PCA shift volume MISC SCH ×2 (07:30→19:00)
[2018-10-08] MEDS ORDERED: Rate Change PCA 1 Each MISC PRN (07:47)
--- NOTE | 2018-10-08 07:47 | General Progress Note ---
Progress Note Progress Note AVSS she is feeling better with less cramping and nausea. Abdomen soft, healing nicely Perineum healing nicely Urine 4650 Gastrostomy 640 BCIR ileo 165 WBC 8800 Hgb 9,6 albumin up 2.4 Imp. Slowly resolving ileus/partial SBO Plan: continue npo and TPN d/c antibiotics will d/c urinary Jung tomorrow AM if continues to improve and be more active, and will then d/c SQ heparin Chung Gonzales MD Oct 08, 2018 07:47
[2018-10-08 08:00] VITALS: BP 118/66
[2018-10-08] MEDS ORDERED: PCA HYDROmorphone 1mg/ml 30 ML IV PRN (08:00)
--- NOTE | 2018-10-08 08:00 | NUR ---
NURSE NOTES: Received report from Itzel CHAPMAN, pt a/a/o x4 laying in bed with no signs of distress or other issues at this time. pt stated that she feels much better than yesterday. RN encourage her to walk/ambulate more today, pt verbalized understanding and agreed to it. PICC line in place, with BACK MAKER Dilaudid with settin.1 continues, 0.1 bolus, 6min. D51/2NS+40mEq@75ml/hr, TPN @74ml/hr. ileo in place draining well with dark/greenish color. Total shift engineer put put: 90ml. GT in place total drainage at shift engineer: 270ml, Jung in place draining to gravity, total out out: 1650ml. surgical dressing dry and intact, changed by Dr. Gonzales this morning. RN will change perineum dressing as indicated by . pt's son at bed side. call light within reach, bed in lowest position. side rales up x4. I will f/u as needed.
[2018-10-08] MEDS: Nystatin Susp 500,000 units/5ml ORAL SCH ×4 (08:19→21:25)
[2018-10-08] MEDS: Heparin 5000 units/ml inj SUBQ SCH ×2 (08:20→21:27)
[2018-10-08] MEDS: HYDROmorphone 1mg/ml Carpuject SUBQ PRN (10:04)
[2018-10-08 12:00] VITALS: BP 117/69
--- NOTE | 2018-10-08 13:00 | NUR ---
NURSE NOTES: Pt was able to ambulate with physical therapy around the unit using a FWW. I will f/u as needed.
[2018-10-08 16:00] VITALS: BP 117/73
[2018-10-08] MEDS ORDERED: Fluconazole 100mg tab ORAL SCH (16:16)
[2018-10-08] MEDS: Miconazole Vag Cr 45gm Tube (100mg per applicator) VAGIN SCH (18:00)
--- NOTE | 2018-10-08 19:40 | NUR ---
NURSE NOTES: Report taken from ARI Figueroa. Patient awake and in bed, A&Ox4, son at bedside. PICC line c/d/i. TPN running at 74 ml/hr. D5 1/2 NS + 40 KCl running at 75 ml/hr. CLINICAL OPERATIONS SPECIALIST pump active: 0.1 bolus, 0.1/12/11, new syringe placed. Patient is still NPO except ice chips/meds. Accuchecks Q6h. Jung draining yellow urine, c/d/i. G-tube c/d/i, draining light green fluid. Ileo c/d/i draining dark green fluid, use additional flush if tube not draining fully through shift. Patient has back side surgical site, changed dressing per MD order. Abdominal site c/d/i no draining. Skin intact. Continue to monitor patient, bed in lowest position, call light within reach.
--- NOTE | 2018-10-08 19:45 | NUR ---
HAND-OFF: Report given to Obed RN, pt in stable condition. I&O's Ileo out put: 100-100= 0ml GT out put: 100-250= 150ml Jung cath: 2000ml total oral intake: 200ml (ice chips)
[2018-10-08 20:00] VITALS: BP 112/63
[2018-10-08] MEDS: [UNRECOGNIZED DRUG - NUTRITION] IV SCH ×2 (20:16)
[2018-10-08] MEDS: LORazepam 1mg tab SL PRN (20:17)
[2018-10-08] MEDS: Iron Sucrose 100 MG in NS 55 ML IV SCH (22:01)
[2018-10-09] VITALS: BP 109/62
[2018-10-09] MEDS: D5 1/2NS w/KCl 40meq 1000ml 1,000 ML IV SCH ×2 (00:15→09:01)
[2018-10-09] MEDS: NovoLOG Insulin Flexpen SUBQ SCH ×4 (00:19→18:22)
[2018-10-09] MEDS: LORazepam 1mg tab SL PRN ×3 (01:24→19:17)
[2018-10-09] MEDS: PCA shift volume MISC SCH ×2 (07:00→19:07)
[2018-10-09 07:02] LABS: BASOPHILS % (AUTO) 1.1 % (0.0-2.0); EOSINOPHILS % (AUTO) 6.1 % (0.0-3.0); HEMOGLOBIN 10.2 G/DL (12.0-16.0); MEAN CORPUSCULAR VOLUME 82 FL (80-99); MONOCYTES % (AUTO) 9.9 % (1.0-10.0); NEUTROPHILS % (AUTO) 69.9 % (45.0-75.0); PLATELET COUNT 393 K/UL (150-450); RED BLOOD COUNT 3.89 M/UL (4.20-5.40); RED CELL DISTRIBUTION WIDTH 18.1 % (11.6-14.8); WHITE BLOOD COUNT 10.6 K/UL (4.8-10.8)
[2018-10-09 07:04] LABS: ALANINE AMINOTRANSFERASE 33 U/L (12-78); ALBUMIN 2.6 G/DL (3.4-5.0); ALBUMIN/GLOBULIN RATIO 0.6 (1.0-2.7); ALKALINE PHOSPHATASE 104 U/L (46-116); ANION GAP 7 mmol/L (5-15); ASPARTATE AMINO TRANSFERASE 41 U/L (15-37); BILIRUBIN,TOTAL 0.3 MG/DL (0.2-1.0); BLOOD UREA NITROGEN 12 mg/dL (7-18); CALCIUM 8.7 MG/DL (8.5-10.1); CARBON DIOXIDE 28 MMOL/L (21-32); CHLORIDE 100 MMOL/L (98-107); CREATININE 0.8 MG/DL (0.55-1.30); POTASSIUM 4.8 MMOL/L (3.5-5.1); SODIUM 135 MMOL/L (136-145)
--- NOTE | 2018-10-09 07:41 | NUR ---
HAND-OFF: Report given to ARI Figueroa. Patient asleep and VS stable. Outputs for the PM shift as follows UO: 1800cc Ileo: 100cc-90cc = 10cc dark green G-tube: 425cc - 80cc = 325cc light green fluid
[2018-10-09 08:00] VITALS: BP 106/61
--- NOTE | 2018-10-09 08:00 | NUR ---
NURSE NOTES: Received report from Obed CHAPMAN, pt a/a/o x4 laying in bed with no signs of distress or other issues at this time. PICC line in place, TPN running @74& D5 1/2NS+40mEq@25ml/hr, COMPUTER REPAIR TECHNICIAN with Julius RN will change setting as MD indicated. ileostomy in place with thick/dark green output, total ileo during shift production supervisor: 10ml, GT in place draining well, total out put during shift production supervisor: 345ml, Jung cath to gravity draining well. surgical dressing changed this morning by Christian. plan to d/c Jung cath once pt ambulate with PT. and we will start 3:3 GT protocol at 10:00. I will f/u as needed.
--- NOTE | 2018-10-09 08:24 | General Progress Note ---
Progress Note Progress Note AVSS Improvved with only occasional mild mid-abdominal spasms/cramps. Nausea improved ABdomen soft, non-distended, scant tenderness, not tympanitic, incision clean, stoma pink, bhavin - 0 Perineum incision clean Urine 3800 Gastrostomy 495 BCIR ileo small amount enteric WBC 109,600 Hgb 10.2 BMP ok B"UN 12 Cr 0.8 Albumin 2.6 Imp. Improving Plan: Clear liquid diet and Gastrostomy 3:3 protocol as tolerated Remove urinary Jung Continue TPN D/C basal infusion of SHIP JOINER - demand dosing only Maintain continuous drainage of BCIR ileo Chung Gonzales MD Oct 09, 2018 08:24
[2018-10-09] MEDS ORDERED: PCA HYDROmorphone 1mg/ml 30 ML IV PRN (08:30)
[2018-10-09] MEDS ORDERED: Fluconazole 100mg tab ORAL SCH (08:30)
--- NOTE | 2018-10-09 10:00 | NUR ---
NURSE NOTES: Jung removed, pt was able to tolerated well with no signs of distress or other issues. RN will fallow for post void. - patient was able to ambulate around the unit with physical therapy assistance and the use of FWW. I will f/u as needed.
[2018-10-09] MEDS: Nystatin Susp 500,000 units/5ml ORAL SCH ×4 (10:20→21:16)
[2018-10-09] MEDS: Miconazole Vag Cr 45gm Tube (100mg per applicator) VAGIN SCH (10:20)
[2018-10-09] MEDS: Heparin 5000 units/ml inj SUBQ SCH ×2 (10:20→21:20)
[2018-10-09] MEDS: Phytonadione 10 mg/mL 1ml amp SUBQ SCH (10:20)
[2018-10-09 12:00] VITALS: BP 116/66
[2018-10-09] MEDS: TransDerm Scop 1mg/72HR Patch TDERMAL SCH (13:32)
--- NOTE | 2018-10-09 14:18 | NUR ---
CASE MANAGEMENT:REVIEW 10/08/18 SI: POD #7 C/O ABDOMINAL PAIN 97.7 90 17 117/73 98% ON RA H/H-9.6/29.5 GLUCOSE+127 IS: REGISTERED NURSING PROFESSOR DILAUDID IVF@75/HR TPN/IL @ 74/HR IV VENOFER QHS : MED/SURG STATUS 3 EAST PLAN: CONTINUE NPO AND TPN 10/09/18 SI: POD #8 C/O ABDOMINAL PAIN 98.5 85 17 116/66 96% ON RA IS: REGISTERED NURSING PROFESSOR DILAUDID VIT K SQ Q WEEK IVF@25/HR TPN/IL @ 74/HR IV VENOFER QHS HEPARIN SQ Q12 : MED/SURG STATUS 3 EAST PLAN: CONTINUE NPO AND TPN
[2018-10-09] MEDS: HYDROmorphone 1mg/ml Carpuject SUBQ PRN ×2 (14:20→21:17)
--- NOTE | 2018-10-09 14:44 | NUR ---
RD ASSESSMENT & RECOMMENDATIONS SEE CARE ACTIVITY FOR COMPLETE ASSESSMENT DAILY ESTIMATED NEEDS: Needs based on surgery 64.8kg 25-30 kcals/kg 4036-9393 total kcals 1-2 g protein/kg 65-130 g total protein 25-30 mL/kg 7535-9149 total fluid mLs NUTRITION DIAGNOSIS: Altered GI fxn r/t ileus, proctocolectomy as evidenced by pt w/ h/o ulcerative colitis, now s/p new BCIR, ileus, diet now advanced to CLD, pt on TPN. CURRENT DIET:CLEAR LIQUID DIET PO DIET RECOMMENDATIONS: Advance diet per MD -> BCIR LOW RESIDUE PARENTERAL NUTRITION RECOMMENDATIONS: D/AA Rate: 65 IL Rate: 9 Total Rate: 74 Volume: 1776 % Dextrose: 19 % AA: 5.2 Energy (kcals/kg): 1764.3 Protein (g/kg protein): 81 Nonprotein KCALS: 1440 GIR (mg CHO/kg/min): 3.2 % Fat KCALS: 25 NCP: N Ratio: 111:1 TPN Comment: - Maintain current TPN : D19% with AA 5.2% @65ml/hr + IL 20% @9ml/hr-> all 3:1 - TPN @goal meets 100% est kcal and pro needs; provides 27kcal per adj kg, 1.3g pro/adj kg. - Taper down TPN w/ diet advancement ADDITIONAL RECOMMENDATIONS: 1) MONITOR DAILY ON TPN: BG, LFT's, and LYTES 2) Weekly standing weights as able 3) Monitor diet advancement and tolerance, ability to taper down TPN
[2018-10-09] MEDS ORDERED: NS Irrig 1000ml ONE (14:51)
[2018-10-09] MEDS ORDERED: Tubing IV Secondary IV ONE (14:51)
[2018-10-09 16:00] VITALS: BP 107/72
--- NOTE | 2018-10-09 19:25 | NUR ---
NURSE NOTES: Report taken from ARI Figueroa. patient is awake and in bed, A&Ox4. No signs of distress on room air. Patient has some generalized pain in the abdomen with some radiating to her low back, 5/10. Has bedside commode priviledges. On 3:3 protocol for G-tube, Tube c/d/i and currently open to gravity. Draining light green fluids. Ileo c/d/i, draining dark green fluid. PICC line in CHRISTOPHE c/d/i one port running TPN at 74 ml/hr. Port two running D5 1/2 NS + 40KCl at 25 mls/hr. Surgical site c/d/i. Will change dressing in perianal area. Tolerating clear liquids well. Bed in lowest position, call light within reach.
--- NOTE | 2018-10-09 19:54 | NUR ---
HAND-OFF: Report given to Obed CHAPMAN, pt in stable condition. pt was able to tolerate the 3:3 Gt protocol with no major complains. pt also was able to tolerate clear liquid diet with no n/v. pt was able to ambulate around her room x2. total I&O's during my shift Ileostomy: 90-314=439tw Gtube: 110-750= 650ml Jung: 400ml + post void: 700ml = 1100 total urine total oral intake: 600ml
[2018-10-09 20:00] VITALS: BP 124/69
--- NOTE | 2018-10-09 20:05 | NUR ---
SPORTS CLERK Co-Signature Notes: Reviewed patient's chart. Reviewed and approved SPORTS CLERK notes. Addendum: 10/09/18 at 2005 by MG ROBLEDO PT Amended: Links added.
--- NOTE | 2018-10-09 20:05 | NUR ---
SITE COORDINATOR Co-Signature Notes: Reviewed patient's chart. Reviewed and approved SITE COORDINATOR notes. Addendum: 10/09/18 at 2006 by MG ROBLEDO PT Amended: Links added.
[2018-10-09] MEDS: [UNRECOGNIZED DRUG - NUTRITION] IV SCH ×2 (20:18)
[2018-10-09] MEDS: Iron Sucrose 100 MG in NS 55 ML IV SCH (21:17)
[2018-10-10] VITALS: BP 101/62
[2018-10-10] MEDS: LORazepam 1mg tab SL PRN ×3 (00:02→22:27)
[2018-10-10] MEDS: D5 1/2NS w/KCl 40meq 1000ml 1,000 ML IV SCH (00:15)
--- NOTE | 2018-10-10 04:18 | NUR ---
NURSE NOTES: Patient stating that after she urinates she gets a "sharp stabbing" pain in her lower abdominal area. No burning with urination, no itching in the perineal area, no fever, urine is normal. RN reassured her that pain could be from the gillis removal earlier today. Will notify MD of the issue. Continue to monitor.
[2018-10-10 06:12] LABS: BASOPHILS % (AUTO) 0.8 % (0.0-2.0); EOSINOPHILS % (AUTO) 4.5 % (0.0-3.0); HEMATOCRIT 33.8 % (37.0-47.0); HEMOGLOBIN 10.8 G/DL (12.0-16.0); LYMPHOCYTES % (AUTO) 12.2 % (20.0-45.0); MEAN CORPUSCULAR VOLUME 82 FL (80-99); MONOCYTES % (AUTO) 8.2 % (1.0-10.0); NEUTROPHILS % (AUTO) 74.3 % (45.0-75.0); PLATELET COUNT 400 K/UL (150-450); RED BLOOD COUNT 4.11 M/UL (4.20-5.40); RED CELL DISTRIBUTION WIDTH 17.9 % (11.6-14.8); WHITE BLOOD COUNT 11.6 K/UL (4.8-10.8)
[2018-10-10] MEDS: NovoLOG Insulin Flexpen SUBQ SCH ×5 (06:15→23:35)
[2018-10-10 06:30] LABS: ALANINE AMINOTRANSFERASE 32 U/L (12-78); ALBUMIN 2.7 G/DL (3.4-5.0); ALBUMIN/GLOBULIN RATIO 0.6 (1.0-2.7); ALKALINE PHOSPHATASE 105 U/L (46-116); ANION GAP 8 mmol/L (5-15); ASPARTATE AMINO TRANSFERASE 29 U/L (15-37); BILIRUBIN,TOTAL 0.3 MG/DL (0.2-1.0); BLOOD UREA NITROGEN 12 mg/dL (7-18); CALCIUM 8.9 MG/DL (8.5-10.1); CARBON DIOXIDE 28 MMOL/L (21-32); CHLORIDE 99 MMOL/L (98-107); CREATININE 0.8 MG/DL (0.55-1.30); PHOSPHORUS 3.7 MG/DL (2.5-4.9); SODIUM 135 MMOL/L (136-145)
[2018-10-10] MEDS: PCA shift volume MISC SCH (07:00)
--- NOTE | 2018-10-10 07:39 | NUR ---
HAND-OFF: Report given to ARI Dumont. Patient awake, fatigued in bed. In stable condtion. Outputs for the night below Tolerating 3:3 Gtube clamping well. UO: 1600cc Ileo: 175cc-80cc= 95cc G-tube: 900cc-80cc= 820cc
--- NOTE | 2018-10-10 07:40 | NUR ---
NURSE NOTES: WALKING ROUNDS DONE WITH OUTGOING RN. PATIENT AWAKE IN BED. SURGICAL SITE ASSESSED; C/D/I. PICC LINE PATENT AND SECURED.CIVILIAN JAIL OFFICER SETTINGS VERIFIED AGAINST MD ORDER.QUESTIONS ANSWERED,NEEDS MET. DISCUSSED PLAN OF CARE FOR THE DAY. VERBALIZED UNDERSTANDING. GASTRO 3:3 PROTOCOL IN PROGRESS AND PATIENT TOLERATING WELL. CALL LIGHT WITHIN REACH. BED IN LOW AND LOCKED POSITION.
[2018-10-10 08:00] VITALS: BP 107/63
--- NOTE | 2018-10-10 08:21 | General Progress Note ---
Progress Note Progress Note AVSS Feeling better and able to tolerate 2300cc po clear liquids with gastrostomy 3:3 Abdomen soft, flat, non-tender, healing nicely Perineum healing nicely with mild sima rash Urine 2700 voiding Gastrostomy 1460 BCIR ileo 305 WBC up 11,600 Hgb 10.8 BMP,Mg,P - all wnl albumin up 2.7 Imp. Improving Plan: continue clear liquids and TPN gastrostomy 5:1 protocol d/c SQ heparin - ambulating better maintain continuous decompression/drainage of Leal Continent Ileostomy diflucan po daily D/C HEALTH AND WELLNESS SALES CONSULTANT - start prn Chung Naylor MD Oct 10, 2018 08:21
--- NOTE | 2018-10-10 09:00 | NUR ---
NURSE NOTES: PATIENT SEEN BY DR. ANTON. NEW GASTROSTOMY PROTOCOL 5:1 STARTED @ 0900. NEW PROTOCOL EXPLAINED BY DR. ANTON. PATIENT VERBALIZED UNDERSTANDING. ILEOSTOMY TUBE PATENT,SECURED AND TO GRAVITY.
[2018-10-10] MEDS: Miconazole Vag Cr 45gm Tube (100mg per applicator) VAGIN SCH (09:13)
[2018-10-10] MEDS: Nystatin Susp 500,000 units/5ml ORAL SCH ×4 (09:13→20:27)
[2018-10-10] MEDS: Fluconazole 100mg tab ORAL SCH (09:13)
[2018-10-10 11:48] LABS: APPEARANCE,URINE CLOUDY; BILIRUBIN, URINE NEGATIVE (NEGATIVE); COLOR,URINE PALE YELLOW; GLUCOSE, URINE (UA) NEGATIVE (NEGATIVE); KETONES,URINE NEGATIVE (NEGATIVE); LEUKOCYTE ESTERASE ,URINE 1+ (NEGATIVE); NITRITE,URINE NEGATIVE (NEGATIVE); PH,URINE 6 (4.5-8.0); PROTEIN,URINE 1+ (NEGATIVE); UROBILINOGEN,URINE NORMAL MG/DL (0.0-1.0)
[2018-10-10 11:59] VITALS: BP 122/71
--- NOTE | 2018-10-10 12:00 | NUR ---
NURSE NOTES: ASSESSED PATIENT'S STATUS WITH NEW GASTROSTOMY 5:1 PROTOCOL. PATIENT STATES THUS FAR SHE IS TOLERATING. PATIENT STATES SHE FEELS CRAMPING TO MID ABDOMINAL AREA. AT THIS TIME, PATIENT IS IN BED. CHECKED ALL TUBINGS FOR KINKS AT SURGICAL SITES. NOTED ILEOSTOMY TUBE UNDER PT'S THIGH. PATIENT INSTRUCTED TO BE MINDFUL OF ALL TUBINGS TO REMAIN UNKINKED AND TO CALL FOR HELP IF NEEDED. PATIENT STATES THEY UNDERSTOOD. ADMINISTERED 60 CC NS FLUSH TO ILEOSTOMY; NOTED OUTPUT TO RESUME FLOWING EXPECTED. EATING CLEAR LIQUIDS SLOWLY. APPETITE POOR. PATIENT STATES THEY DO NOT HAVE AN APPETITE AT THIS TIME. CALL LIGHT WITHIN REACH. BED IN LOW AND LOCKED POSITION.
--- NOTE | 2018-10-10 13:00 | NUR ---
NURSE NOTES: PATIENT STATES TO HAVE INCREASED CRAMPING AND GAS PAINS. CHECKED ALL TUBINGS AND KINKS; ALL PATENT AND SECURED.ADMINISTERED ATIVAN SL. WILL CONTINUE TO MONITOR CRAMPING AND GAS PAINS.
--- NOTE | 2018-10-10 14:25 | NUR ---
NURSE NOTES: RE-ASSESSED GAS AND CRAMPING DISCOMFORT. PATIENT ASLEEP IN BED. CALL LIGHT WITHIN REACH.
[2018-10-10 15:49] VITALS: BP 131/69
[2018-10-10] MEDS: HYDROmorphone 1mg/ml Carpuject SUBQ PRN ×2 (16:20→20:26)
--- NOTE | 2018-10-10 16:30 | NUR ---
NURSE NOTES: PATIENT WITH C/O CRAMPING THAT HAS INCREASED TO 7/10. STATES PAIN IS IN THE LOWER ASPECT OF ABDOMINAL ABOVE PRIVATE AREA. IN ADDITION, PAIN IS DIFFUSED THROUGHOUT OUT SURGICAL AREA. CHECKED ALL TUBINGS WHICH ARE SECURED AND UNKINKED. PATIENT RECEIVED DILAUDID 1 MG SUBCUTE PER MD ORDER. WILL RE-ASSESS PAIN AND CRAMPING STATUS.
--- NOTE | 2018-10-10 18:30 | NUR ---
NURSE NOTES: PATIENT STATES PAIN HAS IMPROVED BUT IS STILL PRESENT. WAS ABLE TO CONSUME CLEAR LIQUIDS; NO N/V NOTED. GASTROSTOMY TUBE REMAINS CLAMPED. ILEOSTOMY PATENT,SECURED AND TO GRAVITY. CALL LIGHT WITHIN REACH
--- NOTE | 2018-10-10 19:45 | NUR ---
NURSE NOTES: Received report from ARI Dumont. Received pt lying in bed, AOX4, patient c/o cramping 7/10 to lower part of abdominal area above the private area, and throughout the surgical site. All tubings check secured and unkinked. Will medicate for pain when it's time. PICC line L upper arm, patent and intact. TPN infusing as ordered. Ileo to gravity. G-tube clamped at this time. Pt denies nausea or vomiting. No distress noted. Bed in lowest position and locked, side rails up x 2, call light within reach. Will continue to monitor.
[2018-10-10 20:00] VITALS: BP 122/74
[2018-10-10] MEDS: [UNRECOGNIZED DRUG - NUTRITION] IV SCH ×2 (20:00)
--- NOTE | 2018-10-10 20:25 | NUR ---
NURSE NOTES: Dilaudid 1mg sub cut given for abdominal pain. Will continue to monitor.
[2018-10-10] MEDS: Iron Sucrose 100 MG in NS 55 ML IV SCH (20:28)
--- NOTE | 2018-10-10 21:00 | NUR ---
NURSE NOTES: Reassess pt pain level decreased to 4/10. G-tube reconnected to bag and flushed per MD order.
--- NOTE | 2018-10-10 23:50 | NUR ---
NURSE NOTES: Pt c/o abdominal cramping 02/14, Pt states "its like a jolt". Check all tubings Ileo and G-tube secured and unkinked. Toradol 30mg IVP given for pain. pt denies nausea or vomiting. Will continue to monitor.
[2018-10-10] MEDS: Ketorolac 30mg Inj IV PRN (23:53)
[2018-10-11] VITALS: BP 117/65
--- NOTE | 2018-10-11 00:23 | NUR ---
NURSE NOTES: Reassess pain level 10/15. Pt states "cramping subsided". No distress noted. Ileo and G-tube tubing secured and unkinked. Will continue to monitor.
[2018-10-11] MEDS: LORazepam 1mg tab SL PRN ×3 (03:21→23:34)
[2018-10-11] MEDS: HYDROmorphone 1mg/ml Carpuject SUBQ PRN ×2 (03:51→21:19)
[2018-10-11 04:00] VITALS: BP 125/68
[2018-10-11 05:46] LABS: BASOPHILS % (AUTO) 1.5 % (0.0-2.0); EOSINOPHILS % (AUTO) 2.8 % (0.0-3.0); HEMATOCRIT 33.9 % (37.0-47.0); LYMPHOCYTES % (AUTO) 11.8 % (20.0-45.0); MEAN CORPUSCULAR VOLUME 82 FL (80-99); MONOCYTES % (AUTO) 7.8 % (1.0-10.0); NEUTROPHILS % (AUTO) 76.1 % (45.0-75.0); PLATELET COUNT 407 K/UL (150-450); RED BLOOD COUNT 4.13 M/UL (4.20-5.40); RED CELL DISTRIBUTION WIDTH 18.5 % (11.6-14.8); WHITE BLOOD COUNT 10.6 K/UL (4.8-10.8)
[2018-10-11 06:04] LABS: ALANINE AMINOTRANSFERASE 31 U/L (12-78); ALBUMIN 2.8 G/DL (3.4-5.0); ALBUMIN/GLOBULIN RATIO 0.6 (1.0-2.7); ALKALINE PHOSPHATASE 107 U/L (46-116); ANION GAP 9 mmol/L (5-15); ASPARTATE AMINO TRANSFERASE 24 U/L (15-37); BILIRUBIN,TOTAL 0.3 MG/DL (0.2-1.0); BLOOD UREA NITROGEN 17 mg/dL (7-18); CALCIUM 8.9 MG/DL (8.5-10.1); CARBON DIOXIDE 27 MMOL/L (21-32); CHLORIDE 99 MMOL/L (98-107); CREATININE 0.9 MG/DL (0.55-1.30); POTASSIUM 3.7 MMOL/L (3.5-5.1); SODIUM 135 MMOL/L (136-145)
[2018-10-11] MEDS: NovoLOG Insulin Flexpen SUBQ SCH ×4 (06:30→23:31)
[2018-10-11] MEDS: Ketorolac 30mg Inj IV PRN ×2 (06:34→17:48)
--- NOTE | 2018-10-11 07:00 | NUR ---
NURSE NOTES: Pt stable overnight. Medicated for pain as needed. No distress. Will endorse to next nurse. Output: Urine: 1200 Ileo: 200 - 80 = 120 G-tube: 600 - 80 = 520
--- NOTE | 2018-10-11 07:30 | NUR ---
HAND-OFF: Report given to ARI Silveira. Pt in stable condition.
--- NOTE | 2018-10-11 07:33 | NUR ---
NURSE NOTES: Received report from Frank Ludwig RN. Rounding done with outgoing nurse. Patient a/o x4 asleep. No respiratory distress noted. Ileostomy and gastrostomy bag is patent. Patient keep NPO. Abdominal surgical site dressing is dry and intact. CHRISTOPHE PICC line in placed. Son is at the bed side. Bed in lowest position, call light within reach. Will continue to monitor.
[2018-10-11 08:00] VITALS: BP 109/65
--- NOTE | 2018-10-11 08:47 | General Progress Note ---
Progress Note Progress Note AVSS Recurring episodes of mid-abdominal and supra pubic pain/spasms/?cramps? - no associated nausea. Made npo and gastrostomy placed back to continuous drainage. Required additional doses of Toradol IV and dilaudid SQ Abdomen soft, non-distended, non-tender, mildly tympanitic right side, healing nicely, bhavin dry Urine 2600 Gastrostomy 1100 BCIR ileo 600 WBC down 10,600 Hgb 11 BUN up 17 Cr 0.9 Na 135 low Albumin up 2.8 U/A okay, C&S no growth so far Imp: Abdominal cramps vs. muscle spasms Plan: NPO, gastrostomy to continuous drainage, continue TPN Trial of Flexeril po Increase IV fluids with increased gastrostomy output KUB XRay May need f/u CT scan Chung Gonzales MD Oct 11, 2018 08:47
[2018-10-11] MEDS: Miconazole Vag Cr 45gm Tube (100mg per applicator) VAGIN SCH (09:00)
[2018-10-11] MEDS: Nystatin Susp 500,000 units/5ml ORAL SCH ×4 (09:12→20:49)
[2018-10-11] MEDS: Cyclobenzaprine 10mg Tab ORAL SCH ×3 (09:12→17:47)
[2018-10-11] MEDS: Fluconazole 100mg tab ORAL SCH (09:12)
--- NOTE | 2018-10-11 09:43 | Diagnostic Imaging Report ---
EXAM: XR Abdomen, 1 Views CLINICAL HISTORY: ABD PAIN TECHNIQUE: Frontal view of the abdomen/pelvis . COMPARISON: Abdomen x-ray 10/06/18 8675 FINDINGS: Gastrointestinal tract: Gassy distended small bowel loops in the right lower abdomen, similar to prior study. Maybe an ileus versus low-grade SBO. Bones/joints: Unremarkable. Soft tissues: Midline lower abdominal/pelvic vertical surgical clips. Vasculature: Phleboliths in the pelvis. IMPRESSION: Gassy distended small bowel loops in the right lower abdomen, similar to prior study. Maybe an ileus versus low-grade SBO.
[2018-10-11] MEDS ORDERED: Tubing IV Secondary IV ONE (09:58)
[2018-10-11] MEDS ORDERED: NS Irrig 1000ml ONE (09:58)
[2018-10-11] MEDS: D5NS w/KCl 40mEq 1000ml 1,000 ML IV SCH (10:05)
--- NOTE | 2018-10-11 10:50 | NUR ---
NURSE NOTES: Patient ambulates hallway x4 with Physical therapist. No abdominal cramping noted. Patient in stable condition.
--- NOTE | 2018-10-11 11:31 | NUR ---
CASE MANAGEMENT:REVIEW 4 SI: POD #9 ULCERATIVE COLITIS C/O ABDOMINAL PAIN T 98.4 HR 83 RR 18 B/P 122/74 SATS 97% ON RA WBC 11.6 NA 135 GLU 131 IS: VIT K SUBQ QWEEK IVF@ 50 mL/HR TPN @ 74 mL/HR IV VENOFER QHS HEPARIN SUBQ Q12H MED/SURG STATUS 3 EAST PLAN: CONTINUE NPO AND TPN 10/11/18 SI: POD #10 ULCERATIVE COLITIS C/O ABDOMINAL PAIN T 97.7 HR 79 RR 19 B/P 109/65 SATS 100% ON RA NA 135 GLU 139 IS: VIT K SUBQ QWEEK IVF@ 50 mL/HR TPN @ 74 mL/HR IV VENOFER QHS HEPARIN SUBQ Q12H MED/SURG STATUS 3 EAST PLAN: CONTINUE NPO AND TPN
--- NOTE | 2018-10-11 11:39 | NUR ---
INSURANCE AUTH# [id number] F/S FAXED TO [facility] FX: [phone]... NOTIFICATION ONLY
[2018-10-11 12:00] VITALS: BP 120/68
[2018-10-11] MEDS: HYDROcodone/Acetamin 5/325 tab ORAL PRN (14:29)
--- NOTE | 2018-10-11 15:30 | NUR ---
NURSE NOTES: Patient c/o abdominal cramping and [place] was given at 1429. Still c/o abdominal cramping and 300ml urine output noted for [address] Gonzales notified and ordered. 1. simethicone 80mg po stat and every 4 hours except pt sleeps during the night 2. do bladder scan after pt voided Noted and carried out.
[2018-10-11 16:00] VITALS: BP 124/68
[2018-10-11] MEDS ORDERED: Simethicone 80mg tab ORAL SCH (16:00)
--- NOTE | 2018-10-11 16:00 | NUR ---
NURSE NOTES: Patient voided 200ml urine and bladder scan was done. [address] Gonzales and left the message.
--- NOTE | 2018-10-11 19:24 | NUR ---
HAND-OFF: Report given to Frank Ludwig RN. Patient in stable condition.
--- NOTE | 2018-10-11 19:30 | NUR ---
NURSE NOTES: Received report and outgoing rounds done with ARI German. Received pt in bed, AOX4, denies pain at this time, no distress noted. Surgical dressing C/D/I. Ileo and g-tube to drainage bag. PICC line patent and intact. TPN infusing as ordered. Pt remain NPO x ice chips and meds. Pt verbalize understanding. Bed in low position and locked, side rails up x 2, call light within reach. Will continue to monitor.
[2018-10-11 20:00] VITALS: BP 128/76
[2018-10-11] MEDS: [UNRECOGNIZED DRUG - NUTRITION] IV SCH ×2 (20:13)
--- NOTE | 2018-10-11 20:45 | NUR ---
NURSE NOTES: Pt ambulating in the hallway with steady gait no distress noted. Will continue to monitor.
[2018-10-11] MEDS: Simethicone 80mg tab ORAL SCH (20:49)
[2018-10-11] MEDS: Iron Sucrose 100 MG in NS 55 ML IV SCH (20:51)
[2018-10-12] VITALS: BP 121/62
[2018-10-12] MEDS: Simethicone 80mg tab ORAL SCH ×6 (01:00→20:26)
[2018-10-12] MEDS: Ketorolac 30mg Inj IV PRN ×2 (01:34→18:41)
[2018-10-12 04:00] VITALS: BP 118/59
[2018-10-12] MEDS: D5NS w/KCl 40mEq 1000ml 1,000 ML IV SCH ×4 (04:48→23:12)
[2018-10-12] MEDS: HYDROmorphone 1mg/ml Carpuject SUBQ PRN ×3 (05:17→21:51)
[2018-10-12 05:18] LABS: EOSINOPHILS % (AUTO) 3.8 % (0.0-3.0); HEMATOCRIT 31.6 % (37.0-47.0); HEMOGLOBIN 10.2 G/DL (12.0-16.0); LYMPHOCYTES % (AUTO) 14.2 % (20.0-45.0); MEAN CORPUSCULAR VOLUME 83 FL (80-99); MONOCYTES % (AUTO) 9.1 % (1.0-10.0); NEUTROPHILS % (AUTO) 71.9 % (45.0-75.0); PLATELET COUNT 361 K/UL (150-450); RED CELL DISTRIBUTION WIDTH 18.8 % (11.6-14.8); WHITE BLOOD COUNT 10.4 K/UL (4.8-10.8)
[2018-10-12] MEDS: NovoLOG Insulin Flexpen SUBQ SCH ×3 (05:21→18:00)
[2018-10-12 05:23] LABS: ANION GAP 5 mmol/L (5-15); BLOOD UREA NITROGEN 21 mg/dL (7-18); CALCIUM 8.8 MG/DL (8.5-10.1); CARBON DIOXIDE 29 MMOL/L (21-32); CHLORIDE 103 MMOL/L (98-107); CREATININE 0.8 MG/DL (0.55-1.30); POTASSIUM 4.5 MMOL/L (3.5-5.1); SODIUM 137 MMOL/L (136-145)
--- NOTE | 2018-10-12 07:20 | NUR ---
HAND-OFF: Report given to ARI German. Pt in stable condition.
--- NOTE | 2018-10-12 07:25 | NUR ---
NURSE NOTES: Received report from Frank Ludwig RN. Rounding done with outgoing nurse. Patient a/o x4 lying on the bed. Patient stat she feels okay. Drainage bag in right placed. CHRISTOPHE PICCL line dressing was changed by night nurse. Bed in lowest position, call light within reach. Will continue to monitor.
[2018-10-12 08:00] VITALS: BP 124/71
[2018-10-12] MEDS: Fluconazole 100mg tab ORAL SCH (08:26)
[2018-10-12] MEDS: Nystatin Susp 500,000 units/5ml ORAL SCH (08:26)
[2018-10-12] MEDS: Cyclobenzaprine 10mg Tab ORAL SCH ×3 (08:26→17:21)
[2018-10-12] MEDS: Miconazole Vag Cr 45gm Tube (100mg per applicator) VAGIN SCH (09:00)
--- NOTE | 2018-10-12 09:40 | General Progress Note ---
Progress Note Progress Note AVSS She is feeling much better, thinks the Flexeril helped, but also gastrostomy to continuous drainage and npo x ice chips and po meds Ambulating well, no cramping or abdominal pain/distress Abdomen soft, flat, non-tender. [place] drain removed Perineum incision clean/dry Urine 1600 Gastrostomy 950 BCIR ileo 410 CBC - stable BUN up 21 Cr 0.8 Imp. Improved with npo status and gastrostomy to drainage Plan: continue current regimen including TPN, and increase supplemental IV fluids will need f/u CT abd+pelvis with oral and IV contrast d/c antifungals f/u labs Chung Gonzales MD Oct 12, 2018 09:40
--- NOTE | 2018-10-12 10:00 | NUR ---
PT Note Attempted to see patient for treatment but patient states that she ambulated with nursing earlier and is tired. Will check again later.
[2018-10-12] MEDS: LORazepam 1mg tab SL PRN ×2 (10:30→20:36)
[2018-10-12 12:00] VITALS: BP 117/65
[2018-10-12] MEDS: TransDerm Scop 1mg/72HR Patch TDERMAL SCH (13:25)
--- NOTE | 2018-10-12 15:02 | NUR ---
NURSE NOTES: Patient ambulated hallway with Evelyn physical therapist. Patient in stable condition.
--- NOTE | 2018-10-12 15:02 | NUR ---
CASE MANAGEMENT: REVIEW SI: ULCERATIVE COLITIS . ANAL INTRAEPITHELIAL NEOPLASM EX LAPAROTOMY TOTAL PROCTOCOLECTOMY. CREATION OF CONTINENT POUCH 10/01 T 98.6 HR 78 RR 19 BP 117/65 SAT 98% ROOM AIR H/H 10.2/31.6 BUN 21 IS: D5 NS w/KCl 40mEq IVF SIMETHICONE PO Q4HR FLEXERIL PO TID VIT K SQ 1/WK VENOFER IV QHS SCOPOLAMINE PATCH Q72HRS DILAUDID SQ Q4HR PRN TPN NPO MED/SURG STATUS DCP: PATIENT IS FROM HOME
[2018-10-12 16:00] VITALS: BP 117/64
--- NOTE | 2018-10-12 19:20 | NUR ---
HAND-OFF: Report given to Frank Ludwig RN. Patient in stable condition.
--- NOTE | 2018-10-12 19:30 | NUR ---
NURSE NOTES: Received pt in bed, asleep, arousable by verbal stimuli, denies pain at this time, no distress noted. Surgical dressing C/D/I. PICC line C/D/I. IV fluid and TPN infusing as ordered. Ileo and G-tube to gravity. Safety measures maintained. Will continue to monitor.
[2018-10-12 20:00] VITALS: BP 121/65
[2018-10-12] MEDS: Iron Sucrose 100 MG in NS 55 ML IV SCH (20:26)
[2018-10-12] MEDS: [UNRECOGNIZED DRUG - NUTRITION] IV SCH ×2 (20:36)
--- NOTE | 2018-10-12 21:00 | NUR ---
NURSE NOTES: Rectal area dressing changed per MD order.
[2018-10-13] VITALS: BP 117/59
[2018-10-13] MEDS: Simethicone 80mg tab ORAL SCH ×6 (01:00→20:13)
[2018-10-13] MEDS: Ketorolac 30mg Inj IV PRN ×3 (02:04→20:13)
[2018-10-13 05:00] VITALS: BP 111/65
[2018-10-13 05:19] LABS: BASOPHILS % (AUTO) 1.2 % (0.0-2.0); EOSINOPHILS % (AUTO) 4.5 % (0.0-3.0); HEMATOCRIT 31.1 % (37.0-47.0); HEMOGLOBIN 9.9 G/DL (12.0-16.0); LYMPHOCYTES % (AUTO) 18.8 % (20.0-45.0); MEAN CORPUSCULAR VOLUME 84 FL (80-99); MONOCYTES % (AUTO) 8.1 % (1.0-10.0); NEUTROPHILS % (AUTO) 67.5 % (45.0-75.0); PLATELET COUNT 328 K/UL (150-450); RED BLOOD COUNT 3.72 M/UL (4.20-5.40); RED CELL DISTRIBUTION WIDTH 19.1 % (11.6-14.8); WHITE BLOOD COUNT 7.6 K/UL (4.8-10.8)
[2018-10-13 05:51] LABS: ALANINE AMINOTRANSFERASE 39 U/L (12-78); ALBUMIN 2.5 G/DL (3.4-5.0); ALBUMIN/GLOBULIN RATIO 0.5 (1.0-2.7); ALKALINE PHOSPHATASE 110 U/L (46-116); ANION GAP 7 mmol/L (5-15); ASPARTATE AMINO TRANSFERASE 33 U/L (15-37); BILIRUBIN,TOTAL 0.3 MG/DL (0.2-1.0); BLOOD UREA NITROGEN 19 mg/dL (7-18); CALCIUM 8.3 MG/DL (8.5-10.1); CARBON DIOXIDE 28 MMOL/L (21-32); CHLORIDE 103 MMOL/L (98-107); CREATININE 0.8 MG/DL (0.55-1.30); PHOSPHORUS 3.7 MG/DL (2.5-4.9); POTASSIUM 4.5 MMOL/L (3.5-5.1); SODIUM 137 MMOL/L (136-145)
[2018-10-13] MEDS: NovoLOG Insulin Flexpen SUBQ SCH ×4 (05:51→18:30)
--- NOTE | 2018-10-13 07:08 | NUR ---
HAND-OFF: Report given to ARI German. Pt in stable conditin.
--- NOTE | 2018-10-13 07:18 | NUR ---
NURSE NOTES: Received report from Frank Ludwig RN. Patient asleep. Gastrostomy and ileostomy drainage bag in right placed. IV fluid and TPN running at this time. Bed in lowest position, call light within reach. Will continue to monitor.
[2018-10-13 08:00] VITALS: BP 124/74
[2018-10-13] MEDS: Cyclobenzaprine 10mg Tab ORAL SCH ×3 (08:21→17:12)
--- NOTE | 2018-10-13 08:35 | General Progress Note ---
Progress Note Progress Note AVSS No GI/abdominal issues since npo with gastrostomy to drainage. This AM has supra-pubic pain - ? bladder spasm Abdomen soft, non-distended, healing nicely. Perineum clean, sutures intact Urine 1900 Gastrostomy 720 BCIR ileo 810 WBC 7600 Hgb 9.9 Platelets 328,000 - she has received 1000mg of Venofer BUN down 19 Cr 0.8 Albumin down 2.5 despite TPN urine C&S - no growth Imp. Post-op partial SBO, resolved since npo Plan: STAT CT scan abdomen+pelvis with oral and Iv contrast continue TPN and IV fluids Chung Gonzales MD Oct 13, 2018 08:35
--- NOTE | 2018-10-13 09:00 | NUR ---
NURSE NOTES: Got consent for CT contrast. Oral contrast was given via gastrostomy tube as MD ordered.
--- NOTE | 2018-10-13 10:20 | NUR ---
NURSE NOTES: Patient off the unit for CT of abd, pelvis with contrast. Patient in stable condition.
--- NOTE | 2018-10-13 10:50 | NUR ---
NURSE NOTES: Patient came back from CT. Patient in stable condition.
--- NOTE | 2018-10-13 11:14 | Diagnostic Imaging Report ---
Clinical Indication: Abdominal pain, history of proctocolectomy and continent ileostomy Technique: Patient given enteric contrast IV administration nonionic contrast. Venous phase spiral acquisition obtained through the abdomen and pelvis. Multiplanar reconstructions were generated. Total dose length product 790.42 mGycm. CTDIvol(s) 15.23 mGy. Dose reduction achieved using automated exposure control Comparison: 10/06/2018 Findings: Again demonstrated is a continent ileostomy. Ingested contrast has traversed most of the small bowel, does not quite reach the pouch. Small bowel loops are much smaller in caliber than on the previous exam, only minimally if at all dilated proximally. Again demonstrated is a gastrostomy in good position. A small sliver of fluid is seen in the left adnexal region just below the tip of the pouch. This appears to be decreased in size from the previous exam. The gas bubbles in the pelvis previously demonstrated have resolved. There is some stranding of the pelvic fat. Other previously demonstrated intraperitoneal gas bubbles have resolved. No other free intraperitoneal fluid collections are demonstrated. A small linear filling defect is seen within the portal vein, extending from the origin to the bifurcation. This measures approximately 3 mm in diameter and does not appear to significantly obstruct the lumen. Unable to assess whether present previously as the prior exam was done without IV contrast. The liver, gallbladder, bile ducts, pancreas, spleen, adrenals are unremarkable. There is mild fullness to the right renal collecting system, and mild left hydronephrosis. This is unchanged from the previous exam. The bladder is mildly distended. Previously demonstrated Jung catheter has been removed. The uterus demonstrates small exophytic fibroids. Again demonstrated is patchy consolidation and atelectasis at the lung bases. However, this has improved considerably since the previous study. Previously demonstrated pleural effusions have resolved. Some of the remaining opacities are somewhat nodular in appearance. A somewhat prominent lymph node is seen in the left-sided pericardial fat and another in the right-sided pericardial fat, also evident previously. Impression: Postsurgical changes, as described above and previously. Since previous exam of 7 days earlier, markedly decreased caliber of previously dilated small bowel loops, improved forward transit of contrast. Note, however, that ingested contrast has not reached the ileostomy pouch so. Mild obstruction not completely excludable Minimal fluid is seen in the left adnexal region, probably just routine postoperative fluid, decreased from previous exam. No other pathologic fluid collection demonstrated Linear filling defect, presumably thrombus, within the main portal vein. This does not appear to be obstructive Patchy bilateral basilar pulmonary parenchymal opacities, markedly improved since prior exam, may reflect residual pneumonia or atelectasis. Note nodular appearance of some of the opacities, necessitating further follow-up to exclude underlying mass lesion. The previously demonstrated pleural fluid has resolved Mild right renal collecting system fullness and mild left hydronephrosis, significance/etiology uncertain, probably evident previously and may be related to mild bladder distention Interim Jung catheter removal Small uterine fibroids Prominent but not frankly enlarged pericardial lymph nodes Pertinent findings discussed by phone with Dr. Gonzales at the time of interpretation The CT scanner at [facility] is accredited by the [employer] and the scans are performed using protocols designed to limit radiation exposure to as low as reasonably achievable to attain images of sufficient resolution adequate for diagnostic evaluation.
--- NOTE | 2018-10-13 11:16 | NUR ---
CASE MANAGEMENT: REVIEW 10/13/18 SI:POD #11 S/P CREATION OF CONTINENT POUCH *POST-OP PARTIAL SBO 97.1 86 20 124/74 99% ON RA H/H-9.9/31.1 GLUCOSE+120 IS: TPN/IL @74/HR IVF@75/HR FLEXERIL PO TID IV TORADOL Q6HRS PRN VIT K SQ Q WEEK DILAUDID SQ Q4HRS PRN SCOPOLAMINE PATCH Q72HRS DILAUDID SQ Q4HR PRN MED/SURG STATUS 3 EAST DCP: PATIENT IS FROM HOME PLAN: CONTINUE NPO TPN/IL CT ABD/PELVIS TODAY
[2018-10-13 12:00] VITALS: BP 144/73
[2018-10-13] MEDS: D5NS w/KCl 40mEq 1000ml 1,000 ML IV SCH (12:25)
--- NOTE | 2018-10-13 13:38 | GI Initial Consult Note ---
History of Present Illness General Date patient seen: Oct 13, 2018 Time patient seen: 13:31 Referring physician: SLOANE Reason for Consultation: ILEUS Present Illness HPI This is a 53-year-old female patient, history of ulcerative colitis with multiple failed attempts of control with medical management. 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 Patient is now status post 1. Proctocolectomy with laparoscopic mobilization of hepatic and splenic flexures. 2. Leal Continent Intestinal Comfort. 3. Catheter gastrostomy. The patient presents today with recent severe abdominal pain status post surgery approximately 10 days ago. It was noted that there is a decreased caliber of the previous dilated small bowel loops, however seen that the contrast did not reach the ileostomy pouch and possible obstruction is not completely excluded. In addition is noted the possible thrombus within the main portal vein but does not appear obstructed. Home Meds Reported Medications Cetirizine Hcl* (ZYRTEC*) 10 Mg Tablet, 10 MG ORAL DAILY, #30 TAB 0 Refills 09/30/18 Albuterol Sulfate* (ALBUTEROL SULFATE MDI*) 8.5 Gm Hfa.aer.ad, 2 PUFF INH Q6H for short of breath, #1 INH 0 Refills 09/30/18 Iron,Carbonyl/Vit C/Vit B12/Fa (IRON 100 PLUS TABLET) 1 Each Tablet, 1 EACH PO DAILY, TAB 09/30/18 Med list reviewed/reconciled: Yes Allergies: Coded Allergies: MORPHINE (Verified Allergy, Severe, 09/30/18) rash,hallucination,fallig off,itching PREDNISONE (Verified Allergy, Severe, Itching, 09/30/18) swelling,itching Patient History History Provided By: Patient, Medical Record [facility] Narrative Ulcerative colitis Social History: Denies: smoking, alcohol use, drug use, other Review of Systems All Other Systems: negative except mentioned in HPI Physical Exam Vital Signs Date Time Temp Pulse Resp B/P (MAP) Pulse Ox O2 Delivery O2 Flow Rate FiO2 10/09/18 08:00 17 10/09/18 08:00 98.5 81 106/61 (76) 96 10/09/18 09:00 Room Air Sp02 EP Interpretation: reviewed, normal Labs Laboratory Tests Test 10/13/18 04:55 White Blood Count 7.6 K/UL (4.8-10.8) Red Blood Count 3.72 M/UL (4.20-5.40) L Hemoglobin 9.9 G/DL (12.0-16.0) L Hematocrit 31.1 % (37.0-47.0) L Mean Corpuscular Volume 84 FL (80-99) Mean Corpuscular Hemoglobin 26.6 PG (27.0-31.0) L Mean Corpuscular Hemoglobin Concent 31.8 G/DL (32.0-36.0) L Red Cell Distribution Width 19.1 % (11.6-14.8) H Platelet Count 328 K/UL (150-450) Mean Platelet Volume 6.8 FL (6.5-10.1) Neutrophils (%) (Auto) 67.5 % (45.0-75.0) Lymphocytes (%) (Auto) 18.8 % (20.0-45.0) L Monocytes (%) (Auto) 8.1 % (1.0-10.0) Eosinophils (%) (Auto) 4.5 % (0.0-3.0) H Basophils (%) (Auto) 1.2 % (0.0-2.0) Sodium Level 137 MMOL/L (136-145) Potassium Level 4.5 MMOL/L (3.5-5.1) Chloride Level 103 MMOL/L (98-107) Carbon Dioxide Level 28 MMOL/L (21-32) Anion Gap 7 mmol/L (5-15) Blood Urea Nitrogen 19 mg/dL (7-18) H Creatinine 0.8 MG/DL (0.55-1.30) Estimat Glomerular Filtration Rate > 60 mL/min (>60) Glucose Level 120 MG/DL (74-106) H Calcium Level 8.3 MG/DL (8.5-10.1) L Phosphorus Level 3.7 MG/DL (2.5-4.9) Magnesium Level 2.1 MG/DL (1.8-2.4) Total Bilirubin 0.3 MG/DL (0.2-1.0) Aspartate Amino Transf (AST/SGOT) 33 U/L (15-37) Alanine Aminotransferase (ALT/SGPT) 39 U/L (12-78) Alkaline Phosphatase 110 U/L (46-116) Total Protein 7.1 G/DL (6.4-8.2) Albumin 2.5 G/DL (3.4-5.0) L Globulin 4.6 g/dL Albumin/Globulin Ratio 0.5 (1.0-2.7) L General Appearance: well appearing, no apparent distress, alert Head: normocephalic EENT: PERRL/EOMI, normal ENT inspection Neck: supple Respiratory: normal breath sounds, no respiratory distress Cardiovascular: normal rate Gastrointestinal: normal inspection, non tender, soft, normal bowel sounds, non -distended, other - ileostomy Rectal: deferred Genitourinary: no CVA tenderness Musculoskeletal: normal inspection, back normal Neurologic: normal inspection, alert, oriented x3, responsive Psychiatric: normal inspection, judgement/insight normal, memory normal Skin: normal inspection, normal color, no rash, warm/dry, palpation normal, well hydrated Lymphatic: normal inspection, no adenopathy Current Medications Current Medications Medications (Trade) Dose Ordered Sig/[place] Route PRN Reason Start Time Stop Time Status Last Admin Dose Admin Acetaminophen (Tylenol) 1,000 mg Q4H PRN GT temp>100.2 or headache 10/01/18 14:45 10/31/18 14:44 10/13/18 12:13 Acetaminophen/ Hydrocodone Bitart ([place] 5/325) 1 tab Q4H PRN ORAL Moderate Pain (Pain Scale 4-6) 10/10/18 08:15 10/17/18 08:14 10/11/18 14:29 Cetylpyridinium Chloride (Cepacol) 1 lozg PRN PRN ORAL For sore throat pain 10/09/18 23:15 11/08/18 23:14 10/11/18 13:26 Cyclobenzaprine HCl (Flexeril) 10 mg THREE TIMES A DAY ORAL 10/11/18 09:00 11/10/18 08:59 10/13/18 12:13 Dextrose 1,000 ml @ 0 mls/hr Q24H PRN IV PN interrupted or unavailable 10/02/18 20:00 11/01/18 19:59 Dextrose (Dextrose 50%) 25 ml Q30M PRN IV Hypoglycemia 10/02/18 08:15 11/01/18 08:14 Dextrose (Dextrose 50%) 50 ml Q30M PRN IV Hypoglycemia 10/02/18 08:15 11/01/18 08:14 Dextrose/ Electrolytes 1,000 ml @ 75 mls/hr [id number] IV 10/12/18 09:45 11/11/18 09:44 10/13/18 12:25 Fat Emulsion Intravenous 216 ml/Amino Acids/ Electrolytes/ Dextrose 1,776 ml @ 74 mls/hr Q24H IV 10/02/18 20:00 11/01/18 19:59 10/12/18 20:36 Hydromorphone HCl (Dilaudid) 1 mg Q4H PRN SUBQ Severe Breakthru Pain (>7) 10/11/18 09:00 10/18/18 08:59 10/12/18 21:51 Insulin Aspart (NovoLOG) Q6HR SUBQ 10/03/18 00:00 11/02/18 00:00 10/13/18 12:02 Ketorolac Tromethamine (Toradol 30mg) 30 mg Q6H PRN IV Severe Pain (Pain Scale 7-10) 10/10/18 20:15 10/15/18 20:14 10/13/18 08:25 Lorazepam (Ativan) 1 mg Q4H PRN SL Muscle Spasm 10/11/18 08:55 10/18/18 08:54 10/12/18 20:36 Ondansetron HCl (Zofran) 4 mg Q4H PRN IVP Nausea & Vomiting 09/30/18 14:30 10/30/18 14:29 10/13/18 08:50 Phytonadione (Vitamin K) 10 mg ONCE A WEEK SUBQ 10/09/18 09:00 11/08/18 08:59 10/09/18 10:20 Prochlorperazine (Compazine) 10 mg Q6H PRN IVP Nausea & Vomiting 10/06/18 09:00 11/05/18 08:59 10/06/18 09:10 Scopolamine (TransDerm Scop 1mg/72HR Patch) 1 mg Q72H TDERMAL 10/06/18 14:00 11/05/18 13:59 10/12/18 13:25 Simethicone (Mylicon) 80 mg Q4HR ORAL 10/11/18 21:00 11/10/18 20:59 10/13/18 12:14 GI: Plan Problems: (1) Ileostomy, has currently (2) Ileus (3) Abdominal pain (4) Ulcerative colitis (5) Postoperative ileus Plan Maintain n.p.o. plus IV fluids Await return of bowel function Serial imaging as needed Continue TPN anemia work up OB stool r/o GI bleed monitor H&H, prn transfusions bowel regime ppi fu labs Discussed with Dr. Guzman. Thank you for this patient referral, we will follow. The patient was seen and examined at bedside and all new and available data was reviewed in the patients chart. I agree with the above findings, impression and plan. (Patient seen earlier today. Signature stamp does not reflect patient encounter time.). - MD Peggy York,[facility] [employer] OPERATOR Oct 13, 2018 13:38
--- NOTE | 2018-10-13 13:45 | NUR ---
RD ASSESSMENT & RECOMMENDATIONS SEE CARE ACTIVITY FOR COMPLETE ASSESSMENT DAILY ESTIMATED NEEDS: Needs based on surgery 64.8kg 25-30 kcals/kg 7823-9705 total kcals 1-2 g protein/kg 65-130 g total protein 25-30 mL/kg 7681-8087 total fluid mLs NUTRITION DIAGNOSIS: Altered GI fxn r/t ileus, proctocolectomy as evidenced by pt w/ h/o ulcerative colitis, now s/p new BCIR, ileus, NPO, on TPN. CURRENT DIET:NPO PO DIET RECOMMENDATIONS: Per surgery PARENTERAL NUTRITION RECOMMENDATIONS: D/AA Rate: 65 IL Rate: 9 Total Rate: 74 Volume: 1776 % Dextrose: 19 % AA: 5.2 Energy (kcals/kg): 1764.3 Protein (g/kg protein): 81 Nonprotein KCALS: 1440 GIR (mg CHO/kg/min): 3.2 % Fat KCALS: 25 NPC: N Ratio: 111:1 TPN Comment: - Maintain current TPN : D19% with AA 5.2% @65ml/hr + IL 20% @9ml/hr-> all 3:1 - TPN @goal meets 100% est kcal and pro needs; provides 27kcal per adj kg, 1.3g pro/adj kg. - Taper down TPN w/ diet advancement ADDITIONAL RECOMMENDATIONS: 1) MONITOR DAILY ON TPN: BG, LFT's, and LYTES 2) Weekly standing weights as able 3) Monitor diet advancement and tolerance, ability to taper down TPN
[2018-10-13 16:00] VITALS: BP 124/69
[2018-10-13] MEDS: HYDROmorphone 1mg/ml Carpuject SUBQ PRN ×2 (16:35→22:36)
--- NOTE | 2018-10-13 16:49 | NUR ---
*-* INSURANCE *-* ALL CLINICALS AND REVIEWS HAVE BEEN FAXED TO: [facility] P:[phone] F:[phone] REF# [id number]
--- NOTE | 2018-10-13 17:23 | NUR ---
NURSE NOTES: Dr. Gonzales called and ordered start clear liquid and keep flushing NS 20cc q3 and keep drainage bag. Noted and carried out.
--- NOTE | 2018-10-13 17:37 | NUR ---
HAND-OFF: Report given to ARI Baker. Patient in stable condition.
--- NOTE | 2018-10-13 17:40 | NUR ---
NURSE NOTES: Patient is sitting up in chair awake and able to verbalize needs. Stable with no s/s acute distress. Patient denies pain or SOB at this time. Patient encouraged to use call light for assistance, verbalized understanding. TPN and IV fluids running as ordered. Skin is clean, dry, and intact. Surgical site is clean, dry, and intact. Patient is in good spirits with call light within reach. Will continue to monitor.
--- NOTE | 2018-10-13 19:30 | NUR ---
NURSE NOTES: Pt ambulating in hallway, steady gait. No distress noted.
--- NOTE | 2018-10-13 19:36 | NUR ---
HAND-OFF: Report given to Tabitha CHAPMAN. Patient is stable.
--- NOTE | 2018-10-13 19:37 | NUR ---
NURSE NOTES: Received report & pt from ARI Baker. Pt lying in bed, a&ox4, in room air, family member at bedside. No s/s of acute distress & c/o 6/10 pain. Will give PRN pain med when due & pt verbalized understanding. Ileo & GT cath intact & draining to gravity. Surgical dressing C/D/I. PICC site intact with IVF & TPN running as ordered. Bed in lowest position, call light within reach. Will continue to monitor.
[2018-10-13 20:00] VITALS: BP 120/78
[2018-10-13] MEDS: [UNRECOGNIZED DRUG - NUTRITION] IV SCH ×2 (20:13)
--- NOTE | 2018-10-13 20:35 | NUR ---
NURSE NOTES: OB stool specimen sent down to lab
[2018-10-14] VITALS: BP 105/55
[2018-10-14] MEDS: Simethicone 80mg tab ORAL SCH ×6 (00:30→23:46)
[2018-10-14] MEDS: NovoLOG Insulin Flexpen SUBQ SCH ×4 (00:36→17:21)
[2018-10-14] MEDS: D5NS w/KCl 40mEq 1000ml 1,000 ML IV SCH ×2 (02:00→14:23)
[2018-10-14 04:00] VITALS: BP 109/59
[2018-10-14] MEDS: Ketorolac 30mg Inj IV PRN ×3 (04:40→21:07)
--- NOTE | 2018-10-14 05:35 | NUR ---
NURSE NOTES: Pt ambulating in hallway, steady gait. No distress noted.
[2018-10-14 06:43] LABS: EOSINOPHILS % (AUTO) 4.3 % (0.0-3.0); HEMATOCRIT 30.5 % (37.0-47.0); HEMOGLOBIN 9.7 G/DL (12.0-16.0); MEAN CORPUSCULAR VOLUME 85 FL (80-99); MONOCYTES % (AUTO) 6.9 % (1.0-10.0); NEUTROPHILS % (AUTO) 70.7 % (45.0-75.0); PLATELET COUNT 335 K/UL (150-450); WHITE BLOOD COUNT 7.6 K/UL (4.8-10.8)
[2018-10-14 06:46] LABS: INR 1.1 (0.9-1.1)
[2018-10-14 07:11] LABS: % IRON SATURATION 29 % (15-50); IRON 58 ug/dL (50-175); TOTAL IRON BINDING CAPACITY 198 ug/dL (250-450)
[2018-10-14 07:18] LABS: ALANINE AMINOTRANSFERASE 37 U/L (12-78); ALBUMIN 2.7 G/DL (3.4-5.0); ALBUMIN/GLOBULIN RATIO 0.6 (1.0-2.7); ALKALINE PHOSPHATASE 105 U/L (46-116); ANION GAP 5 mmol/L (5-15); ASPARTATE AMINO TRANSFERASE 28 U/L (15-37); BILIRUBIN,TOTAL 0.4 MG/DL (0.2-1.0); BLOOD UREA NITROGEN 19 mg/dL (7-18); CALCIUM 8.8 MG/DL (8.5-10.1); CARBON DIOXIDE 29 MMOL/L (21-32); CHLORIDE 104 MMOL/L (98-107); CREATININE 0.7 MG/DL (0.55-1.30); FERRITIN 331 NG/ML (8-388); POTASSIUM 4.5 MMOL/L (3.5-5.1); SODIUM 138 MMOL/L (136-145)
--- NOTE | 2018-10-14 07:30 | NUR ---
HAND-OFF: Report given to ARI Dumont.
--- NOTE | 2018-10-14 07:35 | NUR ---
NURSE NOTES: WALKING ROUNDS DONE WITH OUTGOING RN. PATIENT AWAKE IN BED. DENIES PAIN AT THIS TIME, ILEOSTOMY AND GASTROSTOMY PATENT AND DRAINING. CHRISTOPHE PICC LINE PATENT AND SECURED.QUESTIONS ANSWERED NEEDS MET. DISCUSSED PLAN OF CARE FOR THE DAY. VERBALIZED UNDERSTANDING. BED IN LOW AND LOCKED POSITION. WILL CONTINUE TO MONITOR.
[2018-10-14 08:00] VITALS: BP 114/62
--- NOTE | 2018-10-14 08:25 | General Progress Note ---
Progress Note Progress Note AVSS Feeling considerably better. Still occasional abdominal spasms but no cramping Abdomen soft, flat, healing well. Perineum healing well but sima skin rash surrounding inner buttocks Urine 2400 Gastrostomy 2700 (took clear liquids last night with gastrostomy to drainage) BCIR ileo 1130 (includes oral contrast) WBC 7600 Hgb 9.7 BU"N 19 (no change) Cr 0.7 Folate 18.2 (low normal) CT scan: much improved small bowel. Linear density in portal vein likely thrombus but not obstructing Imp. Improved Plan: Clear liquid diet with gastrostomy 5:[address] Guzman to evaluate re any treatment needed for thrombus in PV Nystatin cream to perineum folic acid po continue TPN Chung Gonzales MD Oct 14, 2018 08:25
--- NOTE | 2018-10-14 08:44 | General Progress Note ---
Assessment/Plan Problem List: (1) Postoperative ileus ICD Codes: K91.89 - Other postprocedural complications and disorders of digestive system; K56.7 - Ileus, unspecified SNOMED: 263847988 (2) Ileostomy, has currently ICD Codes: Z93.2 - Ileostomy status SNOMED: 733188939 (3) Abdominal pain ICD Codes: R10.9 - Unspecified abdominal pain SNOMED: 81955939 (4) Ileus ICD Codes: K56.7 - Ileus, unspecified SNOMED: 679679572 (5) Ulcerative colitis ICD Codes: K51.90 - Ulcerative colitis, unspecified, without complications SNOMED: 44380884 Assessment/Plan new PVT d/w radiology not obstructive plan repeat ct on Saturday cont TPN fu labs fu surg recs Subjective ROS Limited/Unobtainable: Yes Allergies: Coded Allergies: MORPHINE (Verified Allergy, Severe, 09/30/18) rash,hallucination,fallig off,itching PREDNISONE (Verified Allergy, Severe, Itching, 09/30/18) swelling,itching Objective Last 24 Hour Vital Signs Date Time Temp Pulse Resp B/P (MAP) Pulse Ox O2 Delivery O2 Flow Rate FiO2 10/14/18 08:00 98.8 85 17 114/62 (79) 100 10/14/18 04:00 98.2 83 18 109/59 (76) 98 10/14/18 00:00 98.2 76 18 105/55 (72) 95 10/13/18 21:00 Room Air 10/13/18 20:00 98.4 99 18 120/78 (92) 100 10/13/18 16:00 98.6 77 17 124/69 (87) 98 10/13/18 12:00 97.2 89 20 144/73 (96) 97 10/13/18 09:00 Room Air Intake and Output 10/13/18 10/14/18 19:00 07:00 Intake Total 1610 ml 3158 ml Output Total 870 ml 2350 ml Balance 740 ml 808 ml Intake Oral 120 ml 1370 ml IV Total 1490 ml 1788 ml Output Urine Total 700 ml Other 870 ml 1650 ml Laboratory Tests 10/13/18 20:35: Stool Occult Blood [Pending] 10/14/18 04:50: White Blood Count 7.6, Red Blood Count 3.60L, Hemoglobin 9.7L, Hematocrit 30.5L , Mean Corpuscular Volume 85, Mean Corpuscular Hemoglobin 27.1, Mean Corpuscular Hemoglobin Concent 31.9L, Red Cell Distribution Width 19.0H, Platelet Count 335, Mean Platelet Volume 7.3, Neutrophils (%) (Auto) 70.7, Lymphocytes (%) (Auto) 17.0L, Monocytes (%) (Auto) 6.9, Eosinophils (%) (Auto) 4.3H, Basophils (%) (Auto) 1.0, Reticulocyte Count 2.7H, Prothrombin Time 11.4, Prothromb Time International Ratio 1.1, Activated Partial Thromboplast Time 29, Sodium Level 138, Potassium Level 4.5, Chloride Level 104, Carbon Dioxide Level 29, Anion Gap 5, Blood Urea Nitrogen 19H, Creatinine 0.7, Estimat Glomerular Filtration Rate > 60, Glucose Level 98, Calcium Level 8.8, Iron Level 58, Total Iron Binding Capacity 198L, Percent Iron Saturation 29, Unsaturated Iron Binding 140, Ferritin 331, Total Bilirubin 0.4, Aspartate Amino Transf (AST/SGOT ) 28, Alanine Aminotransferase (ALT/SGPT) 37, Alkaline Phosphatase 105, Total Protein 7.3, Albumin 2.7L, Globulin 4.6, Albumin/Globulin Ratio 0.6L, Carcinoembryonic Antigen [Pending], Vitamin B12 Level 613, Folate 18.2, Thyroid Stimulating Hormone (TSH) 1.861, Free Thyroxine 1.45 Height (Feet): 5 Height (Inches): 6.00 Weight (Pounds): 176 General Appearance: alert EENT: normal ENT inspection Neck: supple Cardiovascular: normal rate Respiratory/Chest: decreased breath sounds Abdomen: soft Extremities: non-tender Jasbir Guzman MD Oct 14, 2018 08:44
[2018-10-14] MEDS: Cyclobenzaprine 10mg Tab ORAL SCH ×3 (08:58→18:28)
[2018-10-14 12:00] VITALS: BP 127/80
--- NOTE | 2018-10-14 13:24 | NUR ---
NURSE NOTES: PATIENT TOLERATED FIRST 5:1 G-TUBE PROTOCOL. ABLE TO EAT BREAKFAST AND LUNCH. NO N/V NOTED.MILD CRAMPING. GIVEN SCHEDULED FLEXERIL AND PRN TORADOL WHICH ALLEVIATED SYMPTOMS.
[2018-10-14] MEDS: HYDROmorphone 1mg/ml Carpuject SUBQ PRN (13:47)
--- NOTE | 2018-10-14 14:27 | NUR ---
CASE MANAGEMENT: REVIEW 10/13/18 SI:POD #12 S/P CREATION OF CONTINENT POUCH *POST-OP PARTIAL SBO 98.4 80 17 127/80 99% ON RA H/H-9.730.5 IS: TPN/IL @74/HR IVF@75/HR FLEXERIL PO TID MYLICON PO Q4HRS IV TORADOL Q6HRS PRN VIT K SQ Q WEEK DILAUDID SQ Q4HRS PRN SCOPOLAMINE PATCH Q72HRS DILAUDID SQ Q4HR PRN MED/SURG STATUS 3 EAST DCP: PATIENT IS FROM HOME PLAN: START CLEARS CONTINUE TPN/IL Addendum: 10/14/18 at 1541 by CÉSAR BLAIR, ONOFRE ADHIKARI ADDENDUM ABOVE REVIEW IS FOR 10/14/18
--- NOTE | 2018-10-14 15:00 | NUR ---
ALL CLINICALS AND REVIEWS HAVE BEEN FAXED TO: [facility]"NICA P:[phone] F:[phone] REF# [id number]
[2018-10-14 16:00] VITALS: BP 121/77
--- NOTE | 2018-10-14 19:30 | NUR ---
NURSE NOTES: PATIENT TOLERATED GASTROSTOMY 5:1 PROTOCOL. REQUIRED ONE DOSE TORADOL FOR MILD CRAMPING THIS AFTERNOON. OTHERWISE ABLE TO CONSUME CLEAR LIQUIDS WITHOUT ANY ISSUES. PATIENT UP AMBULATING AND EXCITED ABOUT DIET POSSIBLY BEING ADVANCED DISCUSSED WITH DR. ANTON.
--- NOTE | 2018-10-14 19:30 | NUR ---
NURSE NOTES: Report received from ARI Dumont. Patient ambulating in hallway. Requested to wear yellow socks for safety. Patient verbalized understanding. 1939: Alert, oriented. Resting in bed, bed in low position, locked, side rails up x2, call light within reach. CHRISTOPHE PICC line, intact, patent, flushing well. Receiving TPN and IVF, see eMAR. Dressing intact. GT and ileo draining well at this time. Patient complains of cramping, see eMAR. Will continue to monitor.
[2018-10-14 20:00] VITALS: BP 124/66
--- NOTE | 2018-10-14 20:07 | NUR ---
HAND-OFF: Report given to PATRICK BEAR RN.
[2018-10-14] MEDS: [UNRECOGNIZED DRUG - NUTRITION] IV SCH ×2 (20:30)
[2018-10-14] MEDS: LORazepam 1mg tab SL PRN (21:42)
[2018-10-14] MEDS ORDERED: NS Irrig 1000ml ONE (21:54)
[2018-10-15] VITALS: BP 116/63
[2018-10-15] MEDS: NovoLOG Insulin Flexpen SUBQ SCH ×4 (00:24→17:45)
[2018-10-15] MEDS: Simethicone 80mg tab ORAL SCH ×6 (01:00→20:29)
[2018-10-15] MEDS: HYDROcodone/Acetamin 5/325 tab ORAL PRN (01:19)
[2018-10-15 04:00] VITALS: BP 119/65
[2018-10-15] MEDS: D5NS w/KCl 40mEq 1000ml 1,000 ML IV SCH (04:32)
[2018-10-15] MEDS: Ketorolac 30mg Inj IV PRN ×3 (04:42→18:43)
[2018-10-15 05:37] LABS: BASOPHILS % (AUTO) 0.8 % (0.0-2.0); EOSINOPHILS % (AUTO) 4.6 % (0.0-3.0); HEMATOCRIT 32.6 % (37.0-47.0); HEMOGLOBIN 10.4 G/DL (12.0-16.0); LYMPHOCYTES % (AUTO) 13.8 % (20.0-45.0); MEAN CORPUSCULAR VOLUME 84 FL (80-99); MONOCYTES % (AUTO) 4.9 % (1.0-10.0); PLATELET COUNT 379 K/UL (150-450); RED BLOOD COUNT 3.89 M/UL (4.20-5.40); RED CELL DISTRIBUTION WIDTH 18.5 % (11.6-14.8); WHITE BLOOD COUNT 8.2 K/UL (4.8-10.8)
[2018-10-15 06:33] LABS: ANION GAP 10 mmol/L (5-15); BLOOD UREA NITROGEN 13 mg/dL (7-18); CALCIUM 8.9 MG/DL (8.5-10.1); CARBON DIOXIDE 25 MMOL/L (21-32); CHLORIDE 102 MMOL/L (98-107); CREATININE 0.8 MG/DL (0.55-1.30); POTASSIUM 4.1 MMOL/L (3.5-5.1); SODIUM 137 MMOL/L (136-145)
--- NOTE | 2018-10-15 07:30 | NUR ---
HAND-OFF: Report given to RAI Figueroa. Patient sitting in bed, having breakfast. Left message for dietary: patient would like grape and cranberry juice, dislikes apple juice.
[2018-10-15 08:00] VITALS: BP 118/67
--- NOTE | 2018-10-15 08:00 | NUR ---
NURSE NOTES: Received report from Leslee CHAPMAN, pt a/a/o x4 laying in bed with no signs of distress or other issues at this time. pt has PICC line in the left upper arm, last dressing change on:10/12/18 running TPN @74ml/hr, IVF: d51/2 NS+40mEq@75ml/hr. surgical dressing dry and intact. per Dr. Gonzales to advance her diet to a BCIR diet, and to plug GT continues. RN changed buttocks dressing as indicated but MD, however RN will hold in abd dressing change until Dr. Gonzales comes. son at bedside. call light within reach. bed in lowest position, side raled up x2. I will f/u as needed. I&O's retail shift supervisor ileostomy baml GT: -35ml urine: 1100ml
[2018-10-15] MEDS: Cyclobenzaprine 10mg Tab ORAL SCH ×3 (10:00→17:43)
--- NOTE | 2018-10-15 11:01 | General Progress Note ---
Assessment/Plan Problem List: (1) Postoperative ileus ICD Codes: K91.89 - Other postprocedural complications and disorders of digestive system; K56.7 - Ileus, unspecified SNOMED: 334683052 (2) Ileostomy, has currently ICD Codes: Z93.2 - Ileostomy status SNOMED: 719546774 (3) Abdominal pain ICD Codes: R10.9 - Unspecified abdominal pain SNOMED: 65929552 (4) Ileus ICD Codes: K56.7 - Ileus, unspecified SNOMED: 418789164 (5) Ulcerative colitis ICD Codes: K51.90 - Ulcerative colitis, unspecified, without complications SNOMED: 38758150 Assessment/Plan new PVT d/w radiology not obstructive plan repeat ct on Saturday tolerated diet today>>> consider dc TPN tomorrow if ok with surg and if she cont to tolerate food fu labs fu surg recs Subjective ROS Limited/Unobtainable: Yes Allergies: Coded Allergies: MORPHINE (Verified Allergy, Severe, 09/30/18) rash,hallucination,fallig off,itching PREDNISONE (Verified Allergy, Severe, Itching, 09/30/18) swelling,itching Subjective feeling much better Objective Last 24 Hour Vital Signs Date Time Temp Pulse Resp B/P (MAP) Pulse Ox O2 Delivery O2 Flow Rate FiO2 10/15/18 04:00 98.1 81 18 119/65 (83) 97 10/15/18 00:00 98.5 82 18 116/63 (80) 98 10/14/18 21:00 Room Air 10/14/18 20:00 98.5 83 18 124/66 (85) 99 10/14/18 18:58 98.2 10/14/18 16:00 98.2 78 17 121/77 (92) 99 10/14/18 14:17 98.8 10/14/18 12:20 98.8 10/14/18 12:00 98.4 80 17 127/80 (96) 99 Intake and Output 10/14/18 10/15/18 19:00 07:00 Intake Total 3088 ml 695 ml Output Total 700 ml 140 ml Balance 2388 ml 555 ml Intake Oral 1140 ml IV Total 1788 ml 75 ml Other 160 ml 620 ml Output Urine Total 700 ml Other 140 ml # Voids 3 Laboratory Tests 10/15/18 05:08: White Blood Count 8.2, Red Blood Count 3.89L, Hemoglobin 10.4L, Hematocrit 32.6L , Mean Corpuscular Volume 84, Mean Corpuscular Hemoglobin 26.7L, Mean Corpuscular Hemoglobin Concent 31.8L, Red Cell Distribution Width 18.5H, Platelet Count 379, Mean Platelet Volume 7.2, Neutrophils (%) (Auto) 76.0H, Lymphocytes (%) (Auto) 13.8L, Monocytes (%) (Auto) 4.9, Eosinophils (%) (Auto) 4.6H, Basophils (%) (Auto) 0.8, Sodium Level 137, Potassium Level 4.1, Chloride Level 102, Carbon Dioxide Level 25, Anion Gap 10, Blood Urea Nitrogen 13, Creatinine 0.8, Estimat Glomerular Filtration Rate > 60, Glucose Level 98, Calcium Level 8.9 Height (Feet): 5 Height (Inches): 6.00 Weight (Pounds): 176 General Appearance: alert EENT: normal ENT inspection Neck: supple Cardiovascular: normal rate Respiratory/Chest: lungs clear Abdomen: non tender, soft Extremities: non-tender Jasbir Guzman MD Oct 15, 2018 11:01
[2018-10-15 12:00] VITALS: BP 113/80
--- NOTE | 2018-10-15 12:12 | NUR ---
CASE MANAGEMENT: REVIEW 10/15/18 SI:POD #13 S/P CREATION OF CONTINENT POUCH 98.1 81 18 119/65 97% ON RA H/H-10.4/32.6 IS: TPN/IL @74/HR IVF@75/HR FLEXERIL PO TID MYLICON PO Q4HRS IV TORADOL Q6HRS PRN VIT K SQ Q WEEK DILAUDID SQ Q4HRS PRN SCOPOLAMINE PATCH Q72HRS DILAUDID SQ Q4HR PRN MED/SURG STATUS 3 EAST DCP: PATIENT IS FROM HOME PLAN: PLUG GT START BCIR DIET 1:1 FEED GI CONSULT TO EVALUATE ANY TREATMENT NEEDED FOR THROMBUS PV
--- NOTE | 2018-10-15 13:37 | NUR ---
*-* INSURANCE *-* ALL CLINICALS AND REVIEWS HAVE BEEN FAXED TO: [facility] CRISTIAN:NICA P:[phone] F:[phone] REF# [id number]
[2018-10-15] MEDS ORDERED: HYDROcodone/Acetamin 5/325 tab ORAL PRN (14:58)
--- NOTE | 2018-10-15 15:11 | General Progress Note ---
Progress Note Progress Note Doing well and tolerated 60% clear liquid diet with gastrostomy 5:1 protocol Only one episode pain required toradol. Taking flexeril tid abdomen soft, flat, non-tender. keegan removed and steristrips applied. perineum healing nicely with improved yeast skin erythema. Sutures intact Urine 1800 Gastrostomy 105 BCIR ileo 890 WBC 8200 Hgb 10.4 BUN down 13 Cr 0.8 Imp: Improved GI function Portal vein thrombus, non-obstructing Plan: BCIR low residue diet Plug gastrostomy continuously continue TPN until able to eat sufficient amount maintain continuous drainage of Leal Continent Ileostomy pouch until tolerating diet well with gastrostomy plugged Chung Gonzales MD Oct 15, 2018 15:11
--- NOTE | 2018-10-15 15:13 | NUR ---
P.T WEEKLY PROGRESS. NOTES: PATIENT HAS MADE SIGNIFICANT PROGRESS IN THERAPY SINCE P.T EVALUATION DAY DESPITE MULTIPLE P.T SESSION DEFERRALS DUE PAIN AND C/O NOT FEELING WELL. PATIENT CURRENTLY IS INDEPENDENT WITH BED MOBILITY AND TRANSFERS. PATIENT AMBULATES INDEPENDENTLY WITHIN HALLWAYS W/O AD AND ONLY NEEDED SBA/SUPERVISION TO ASSIST HER WITH IV LINES. PATIENT MET P.T GOALS AND ALREADY FUNCTIONING AT BASELINE THEREFORE SKILLED P.T SERVICE IS NOT LONGER NEEDED. EDUCATED PATIENT RE IMPORTANCE OF OOB ACTIVITIES VS BEDREST UNLESS OTHERWISE ORDERED DURING STAY TO PREVENT OCCURENCE OF DECONDITIONING EFFECT OF PROLONGED HOSPITALIZATION. PATIENT VERBALIZED GOOD UNDERSTANDING. DC P.T SERVICES.
[2018-10-15 16:00] VITALS: BP 123/66
--- NOTE | 2018-10-15 19:30 | NUR ---
NURSE NOTES: Report taken from ARI Figueroa. Patient awake and in bed, A&Ox4. No signs of distress on room air. Is complaining about increasing abdominal pain radiating down the right side and entire lower abdomen. Henry called Dr. Gonzales and endorsed to ca G-tube 3hour flush open to gravity protocol. Ileo c/d/i and patent, draining light brown fluids. Patient ambulating to restroom, continue to monitor I/O. PICC line c/d/i, Port #1 running TPN and 74 cc/hr, Port #2 patent and locked. Patient does have some visible bruising new injections sites, otherwise skin intact. Continue to monitor patient, bed in lowest position, call light within reach.
[2018-10-15 20:00] VITALS: BP 120/90
--- NOTE | 2018-10-15 20:00 | NUR ---
NURSE NOTES: Gave an initial 20cc flush upon opening G-tube per MD order.
--- NOTE | 2018-10-15 20:01 | NUR ---
HAND-OFF: Report given to Obed CHAPMAN, pt in stable condition however pt complaining of abdominal pain. RN called Dr. Gonzales who stated to open the GT tube to drainage continuously and flash Q3h with 20ml. RN endorsed to incoming nurse. I&O's ileo: 80-500= 420ml urine: 1840ml oral intake: 1608ml BCIR diet B: 25% L: 50% D: 25%
[2018-10-15] MEDS: [UNRECOGNIZED DRUG - NUTRITION] IV SCH ×2 (20:28)
[2018-10-15] MEDS: HYDROmorphone 1mg/ml Carpuject SUBQ PRN (23:25)
[2018-10-16] VITALS: BP 143/74
[2018-10-16] MEDS: NovoLOG Insulin Flexpen SUBQ SCH ×4 (00:06→18:00)
[2018-10-16] MEDS: Simethicone 80mg tab ORAL SCH ×6 (00:07→20:09)
[2018-10-16 04:15] VITALS: BP 104/54
[2018-10-16] MEDS: Ketorolac 30mg Inj IV PRN ×2 (05:40→20:09)
--- NOTE | 2018-10-16 06:00 | NUR ---
NURSE NOTES: Patient stated that she has been feeling more relief around her lower abdominal area since opening the G-tube. The pain is now 3/10. Continue to monitor.
[2018-10-16 06:34] LABS: BASOPHILS % (AUTO) 0.7 % (0.0-2.0); EOSINOPHILS % (AUTO) 3.9 % (0.0-3.0); HEMATOCRIT 29.7 % (37.0-47.0); HEMOGLOBIN 9.6 G/DL (12.0-16.0); LYMPHOCYTES % (AUTO) 12.4 % (20.0-45.0); MEAN CORPUSCULAR VOLUME 84 FL (80-99); MONOCYTES % (AUTO) 4.9 % (1.0-10.0); NEUTROPHILS % (AUTO) 78.2 % (45.0-75.0); PLATELET COUNT 283 K/UL (150-450); RED BLOOD COUNT 3.52 M/UL (4.20-5.40); RED CELL DISTRIBUTION WIDTH 18.2 % (11.6-14.8); WHITE BLOOD COUNT 7.6 K/UL (4.8-10.8)
[2018-10-16 07:07] LABS: ALANINE AMINOTRANSFERASE 46 U/L (12-78); ALBUMIN 2.6 G/DL (3.4-5.0); ALBUMIN/GLOBULIN RATIO 0.6 (1.0-2.7); ALKALINE PHOSPHATASE 101 U/L (46-116); ANION GAP 8 mmol/L (5-15); ASPARTATE AMINO TRANSFERASE 37 U/L (15-37); BILIRUBIN,TOTAL 0.3 MG/DL (0.2-1.0); BLOOD UREA NITROGEN 13 mg/dL (7-18); CALCIUM 8.5 MG/DL (8.5-10.1); CARBON DIOXIDE 27 MMOL/L (21-32); CHLORIDE 101 MMOL/L (98-107); CREATININE 0.7 MG/DL (0.55-1.30); SODIUM 136 MMOL/L (136-145)
--- NOTE | 2018-10-16 07:36 | NUR ---
HAND-OFF: Report given to ARI Figueroa. Dr. Gonzales called, ordered that patietn G-tube be continuously plugged as tolerated. Patient had a good night, slept most of the night, had 3/10 pain with pain central to surgical site. Patient is awake and alert, VS stable. Outputs for PM listed below: Ileo: 450cc - 80cc = 370cc G-tube: 325cc - 100cc = 225cc Urine output: 1150cc
[2018-10-16 08:00] VITALS: BP 108/64
--- NOTE | 2018-10-16 08:00 | NUR ---
NURSE NOTES: Received report from Obed CHAPMAN, pt a/a/o x4 laying in bed with no signs of distress or other issues at this time. surgical dressing dry and intact. PICC line in place. running TPN @74ml/hr. ileo in place draining well, brown color. total ileo:370ml. total GT output: 225. per Dr. Gonzales to clamp GT at all times and as tolerated. total urine output: 1150ml. pt eat breakfast 25% with no signs of n/v or cramping. pt's son at bed side. call light within reach, bed in lowest position. side rales up x2. I will f/u as needed.
[2018-10-16] MEDS: Phytonadione 10 mg/mL 1ml amp SUBQ SCH (10:13)
[2018-10-16] MEDS: Cyclobenzaprine 10mg Tab ORAL SCH ×3 (10:13→18:00)
[2018-10-16 12:00] VITALS: BP 108/61
--- NOTE | 2018-10-16 13:10 | NUR ---
RD ASSESSMENT & RECOMMENDATIONS SEE CARE ACTIVITY FOR COMPLETE ASSESSMENT DAILY ESTIMATED NEEDS: Needs based on surgery 64.8kg 25-30 kcals/kg 0873-5714 total kcals 1-2 g protein/kg 65-130 g total protein 25-30 mL/kg 9597-0816 total fluid mLs NUTRITION DIAGNOSIS: Altered GI fxn r/t ileus, proctocolectomy as evidenced by pt w/ h/o ulcerative colitis, now s/p new BCIR, ileus, diet now advanced to BCIR low residue/ low fiber diet, TPN remains at goal. CURRENT DIET: BCIR PO DIET RECOMMENDATIONS: Per surgery PARENTERAL NUTRITION RECOMMENDATIONS: D/AA Rate: 65 IL Rate: 9 Total Rate: 74 Volume: 1776 % Dextrose: 19 % AA: 5.2 Energy (kcals/kg): 1764.3 Protein (g/kg protein): 81 Nonprotein KCALS: 1440 GIR (mg CHO/kg/min): 3.2 % Fat KCALS: 25 NCP: N Ratio: 111:1 TPN Comment: - @goal: D19% with AA 5.2% @65ml/hr + IL 20% @9ml/hr-> all 3:1 - TPN @goal meets 100% est kcal and pro needs; provides 27kcal per adj kg, 1.3g pro/adj kg. REC to start to taper down by 25%-> goal of 55ml/hr ADDITIONAL RECOMMENDATIONS: 1) MONITOR DAILY ON TPN: BG, LFT's, and LYTES 2) Weekly standing weights as able 3) Monitor diet advancement and tolerance, ability to taper down TPN -> Rec to taper down TPN to goal of 55ml/hr
--- NOTE | 2018-10-16 13:14 | NUR ---
CASE MANAGEMENT: REVIEW 10/16/18 SI:POD #14 S/P CREATION OF CONTINENT POUCH 98.5 80 17 108/61 99% ON RA H/H-9.6/29.7 IS: TPN/IL @74/HR IV TORADOL Q6HRS PRN NYSTATIN TOPICAL TID FOLATE PO QD MYLICON PO Q4HRS FLEXERIL PO TID VIT K SQ QWEEK MED/SURG STATUS 3 EAST DCP: PATIENT IS FROM HOME PLAN: BCIR LOW RESIDUE PLUG GT CONTINUOUSLY CONTINUE TPN
--- NOTE | 2018-10-16 15:21 | NUR ---
*-* INSURANCE *-* ALL CLINICALS AND REVIEWS HAVE BEEN FAXED TO: [facility] CRISTIAN:NICA P:[phone] F:[phone] REF# [id number]
[2018-10-16] MEDS ORDERED: NS Irrig 1000ml ONE ×2 (15:32→19:09)
[2018-10-16 16:00] VITALS: BP 121/67
[2018-10-16] MEDS ORDERED: HYDROmorphone 1mg/ml Carpuject SUBQ PRN (17:11)
--- NOTE | 2018-10-16 17:14 | General Progress Note ---
Progress Note Progress Note AVSS Eating only small amounts - she says the same was happening pre- admission.Took 2500cc po fluids. Had gastrostomy to drainage overnight with only 225cc output - re-plugged in AM Abdomen soft, non-tender but patient c/o upper abd. discomfort and fullness Urine 2990 BCIR ileo 790 CBC stable BUN 13 fCr 0.7 Imp: Gradually improving gastric and small bowel function May benefit from Reglan Plan: f/u CT scan abd+pelvis with IV contrast only to assess Portal Vein thrombus (may be chronic) Gastrostomy to drainage x 1 hour to relieve current symptoms continue TPN Chung Gonzales MD Oct 16, 2018 17:14
--- NOTE | 2018-10-16 19:40 | NUR ---
HAND-OFF: Report given to Tasha CHAPMAN, pt in stable condition. Total I&O's Ileo: 100-350= 250ml GT: 150 (post night) - 20= 130ml Urine: 1500ml
[2018-10-16 20:00] VITALS: BP 113/71
--- NOTE | 2018-10-16 20:01 | NUR ---
NURSE NOTES: Patient is aaox4. Toradol IVP given for pain of 7/10 anterior abdomen. No N/V. C/o bladder spasm, No difficulty voiding.will continue to monitor. GT clamped, ileostomy flushed per MD order. TPN running, PICC line flushing well. Son at bedside. Bed low, call light within reach.
[2018-10-16] MEDS: [UNRECOGNIZED DRUG - NUTRITION] IV SCH ×2 (20:10)
[2018-10-17] VITALS: BP 122/70
[2018-10-17] MEDS: NovoLOG Insulin Flexpen SUBQ SCH ×4 (00:43→18:24)
[2018-10-17] MEDS: Simethicone 80mg tab ORAL SCH ×6 (00:49→21:20)
[2018-10-17] MEDS: LORazepam 1mg tab SL PRN ×2 (01:05→21:25)
[2018-10-17 04:00] VITALS: BP 111/68
[2018-10-17 06:10] LABS: BASOPHILS % (AUTO) 0.8 % (0.0-2.0); EOSINOPHILS % (AUTO) 3.7 % (0.0-3.0); HEMATOCRIT 31.6 % (37.0-47.0); HEMOGLOBIN 10.3 G/DL (12.0-16.0); LYMPHOCYTES % (AUTO) 13.6 % (20.0-45.0); MEAN CORPUSCULAR VOLUME 84 FL (80-99); MONOCYTES % (AUTO) 5.3 % (1.0-10.0); NEUTROPHILS % (AUTO) 76.6 % (45.0-75.0); PLATELET COUNT 294 K/UL (150-450); RED BLOOD COUNT 3.75 M/UL (4.20-5.40); RED CELL DISTRIBUTION WIDTH 18.1 % (11.6-14.8)
[2018-10-17 07:42] LABS: ANION GAP 10 mmol/L (5-15); BLOOD UREA NITROGEN 18 mg/dL (7-18); CARBON DIOXIDE 27 MMOL/L (21-32); CHLORIDE 101 MMOL/L (98-107); CREATININE 0.8 MG/DL (0.55-1.30); POTASSIUM 4.2 MMOL/L (3.5-5.1); SODIUM 137 MMOL/L (136-145)
--- NOTE | 2018-10-17 07:53 | NUR ---
HAND-OFF: Report given to ARI German. Patient stable.
--- NOTE | 2018-10-17 07:55 | NUR ---
NURSE NOTES: Received report from ARI Cordova. Patient a/o x 4 lying on the bed. Patient keep NPO for CT of abd. pevis. Ileostomy drainage bag is patent and gastrostomy bag is clamped. No abdominal distress noted. Bed in lowest position, call light within reach. Will continue to monitor.
[2018-10-17 08:00] VITALS: BP 114/67
--- NOTE | 2018-10-17 09:10 | NUR ---
NURSE NOTES: Patient off the unit for CT of [place]. pelvis.
--- NOTE | 2018-10-17 09:25 | NUR ---
NURSE NOTES: Patient came back to unit in stable condition. Flushed PICC line and connected TPN.
--- NOTE | 2018-10-17 09:30 | NUR ---
CT ABD/PELVIS COMPLETED.
[2018-10-17] MEDS: Cyclobenzaprine 10mg Tab ORAL SCH ×3 (09:32→18:09)
--- NOTE | 2018-10-17 09:55 | General Progress Note ---
Assessment/Plan Problem List: (1) Postoperative ileus ICD Codes: K91.89 - Other postprocedural complications and disorders of digestive system; K56.7 - Ileus, unspecified SNOMED: 551221735 (2) Ileostomy, has currently ICD Codes: Z93.2 - Ileostomy status SNOMED: 157985709 (3) Abdominal pain ICD Codes: R10.9 - Unspecified abdominal pain SNOMED: 01622259 (4) Ileus ICD Codes: K56.7 - Ileus, unspecified SNOMED: 826514499 (5) Ulcerative colitis ICD Codes: K51.90 - Ulcerative colitis, unspecified, without complications SNOMED: 89774800 Assessment/Plan new PVT>> almost resolved based on CT done today>>> no need for anticoagulation tolerated diet today>>> consider dc TPN fu labs fu surg recs Subjective ROS Limited/Unobtainable: Yes Allergies: Coded Allergies: MORPHINE (Verified Allergy, Severe, 09/30/18) rash,hallucination,fallig off,itching PREDNISONE (Verified Allergy, Severe, Itching, 09/30/18) swelling,itching Subjective feeling much better Objective Last 24 Hour Vital Signs Date Time Temp Pulse Resp B/P (MAP) Pulse Ox O2 Delivery O2 Flow Rate FiO2 10/17/18 08:00 98.7 83 19 114/67 (83) 97 10/17/18 04:00 98.8 82 20 111/68 (82) 94 10/17/18 00:00 98.7 79 20 122/70 (87) 98 10/16/18 21:00 Room Air 10/16/18 20:00 99.2 87 18 113/71 (85) 98 10/16/18 18:30 99.0 10/16/18 16:00 99.0 79 18 121/67 (85) 98 10/16/18 12:00 98.5 80 17 108/61 (77) 99 Intake and Output 10/16/18 10/17/18 19:00 07:00 Intake Total 2326 ml 814 ml Output Total 1150 ml Balance 2326 ml -336 ml Intake Oral 1872 ml IV Total 74 ml 814 ml Other 380 ml Output Urine Total 670 ml Other 480 ml # Voids 5 Laboratory Tests 10/17/18 05:00: White Blood Count 7.0, Red Blood Count 3.75L, Hemoglobin 10.3L, Hematocrit 31.6L , Mean Corpuscular Volume 84, Mean Corpuscular Hemoglobin 27.4, Mean Corpuscular Hemoglobin Concent 32.5, Red Cell Distribution Width 18.1H, Platelet Count 294, Mean Platelet Volume 7.8, Neutrophils (%) (Auto) 76.6H, Lymphocytes (%) (Auto) 13.6L, Monocytes (%) (Auto) 5.3, Eosinophils (%) (Auto) 3.7H, Basophils (%) (Auto) 0.8, Sodium Level 137, Potassium Level 4.2, Chloride Level 101, Carbon Dioxide Level 27, Anion Gap 10, Blood Urea Nitrogen 18, Creatinine 0.8, Estimat Glomerular Filtration Rate > 60, Glucose Level 110H, Calcium Level 9.0 Height (Feet): 5 Height (Inches): 6.00 Weight (Pounds): 176 General Appearance: alert EENT: normal ENT inspection Neck: supple Cardiovascular: normal rate Respiratory/Chest: lungs clear Abdomen: non tender, soft Extremities: non-tender Jasbir Guzman MD Oct 17, 2018 09:55
--- NOTE | 2018-10-17 10:34 | Diagnostic Imaging Report ---
Clinical Indication: Follow-up of portal vein thrombus demonstrated on recent CT scan. History of abdominal pain and recent continent ileostomy pouch surgery Technique: No oral contrast utilized; not necessary for the indication. IV administration nonionic contrast. Venous phase spiral acquisition obtained through the abdomen and pelvis. Multiplanar reconstructions were generated. Total dose length product 768.33 mGycm. CTDIvol(s) 15.23 mGy. Dose reduction achieved using automated exposure control Comparison: 10/13/2018 Findings: Previously demonstrated portal vein filling defect has nearly or completely resolved. There is a very faint subtle linear opacity in the anterior portal vein extending into the splenic vein which is questionable at best. No other portal, splenic, or superior mesenteric venous abnormality demonstrated. The liver is otherwise unremarkable. The gallbladder, bile ducts, pancreas, spleen, adrenals are unremarkable. Mild fullness to the bilateral renal collecting systems and prominent extrarenal pelves are again demonstrated, appearance similar to the prior exam on the right and decreased on the left. The bladder is nondistended. The kidneys are otherwise unremarkable. Again demonstrated is a continent ileostomy pouch. The previously questioned area of fluid density in the left pelvis is no longer evident. No residual fluid collections are currently demonstrated. Again demonstrated is infiltration of the presacral fat, unchanged. Small bowel loops are nondilated. The distal esophagus, stomach, duodenum are unremarkable. Gastrostomy is again demonstrated in good position. The included lung bases demonstrate patchy areas of atelectasis. The bones are unremarkable Impression: Previously demonstrated nonobstructive portal vein thrombus has nearly or completely resolved. Equivocal small faint linear opacity is probably artifactual but could indicate a residual web Postsurgical changes, as described. No radiographically evident complication Mild bilateral renal collecting system fullness, unchanged on the right and slightly improved on the left since prior study of 10/13/2018. Etiology/significance uncertain; suspect baseline for this patient Images reviewed in person with Dr. Guzman and discussed by phone with Dr. Gonzales The CT scanner at [facility] is accredited by the [employer] and the scans are performed using protocols designed to limit radiation exposure to as low as reasonably achievable to attain images of sufficient resolution adequate for diagnostic evaluation.
[2018-10-17 12:00] VITALS: BP 102/53
--- NOTE | 2018-10-17 13:10 | NUR ---
NURSE NOTES: Patient c/o abdominal pain as 11/14. GT unclamped and connect to drainage bag as MD ordered and will be given pain medicine.
--- NOTE | 2018-10-17 14:00 | NUR ---
NURSE NOTES: Gastrostomy clamped. Patient in stable condition.
--- NOTE | 2018-10-17 14:23 | NUR ---
CASE MANAGEMENT: REVIEW 10/17/18 SI:POD #15 S/P CREATION OF CONTINENT POUCH POST-OP ILEUS 98.4 90 17 102/53 97% ON RA H/H-10.3/31.6 IS: TPN/IL @74/HR IV TORADOL Q6HRS PRN NYSTATIN TOPICAL TID FOLATE PO QD MYLICON PO Q4HRS FLEXERIL PO TID VIT K SQ QWEEK MED/SURG STATUS 3 EAST DCP: PATIENT IS FROM HOME
--- NOTE | 2018-10-17 15:37 | NUR ---
*-* INSURANCE *-* ALL CLINICALS AND REVIEWS HAVE BEEN FAXED TO: [facility] CRISTIAN:NICA P:[phone] F:[phone] REF# [id number]
[2018-10-17 16:00] VITALS: BP 108/69
--- NOTE | 2018-10-17 16:10 | NUR ---
NURSE NOTES: Patient ambulated hallway x2 with RN assistance.
--- NOTE | 2018-10-17 16:30 | General Progress Note ---
Progress Note Progress Note AVSS Intermittent abdominal pain, gastrostomy placed to drainage x 1 hour twice with little output. Symptoms resolved with meds. No nausea or cramping Abdomen soft, non-tender. Perineum clean Urine 2170 BCIR ileo 730 Gastrostomy 130 WBC 7000 Hgb 10.[address] scan shows nearly or completely resolved portal vein thrombus, no acute/ pathologic findings Imp. Improving Plan: d/c TPN if stable overnight will remove gastrostomy and perineal sutures in AM, and will remove Leal Pouch catheter and begin RN teaching and supervision of self-intubations (q2h am to hs and 0200) d/c Toradol and Dilaudid supplemental dosing [place] 7.5/325 and ibuprofen 400mg prn pain Chung Gonzales MD Oct 17, 2018 16:30
[2018-10-17] MEDS: HYDROcodone/Acetamin 7.5/325 tab ORAL PRN ×2 (18:12→22:49)
--- NOTE | 2018-10-17 19:37 | NUR ---
HAND-OFF: Report given to ARI Cordova. Patient in stable condition.
--- NOTE | 2018-10-17 19:44 | NUR ---
NURSE NOTES: Received report from ARI German. Patient is aaox4. No signs of distress, no pain noted. TPN @ 35 ml/hr. Son at bedside, will continue to monitor.
[2018-10-17 20:00] VITALS: BP 111/67
[2018-10-17] MEDS: [UNRECOGNIZED DRUG - NUTRITION] IV SCH ×2 (20:00)
--- NOTE | 2018-10-17 21:15 | NUR ---
NURSE NOTES: Ileostomy draining well. Ativan given for spasms. C/o skin irritation at GT site with redness noted. GT clamped. No c/o bloating or nausea. Bed low, call light within reach. Addendum: 10/17/18 at 2151 by MAXIM SPIVEY RN SAURABH D/C'd
[2018-10-18] VITALS: BP 108/66
[2018-10-18] MEDS: Simethicone 80mg tab ORAL SCH ×6 (00:34→20:16)
[2018-10-18] MEDS: HYDROcodone/Acetamin 7.5/325 tab ORAL PRN ×2 (02:43→06:42)
[2018-10-18 04:00] VITALS: BP 93/58
[2018-10-18 06:17] LABS: EOSINOPHILS % (AUTO) 4.7 % (0.0-3.0); HEMATOCRIT 35.2 % (37.0-47.0); HEMOGLOBIN 11.2 G/DL (12.0-16.0); LYMPHOCYTES % (AUTO) 15.9 % (20.0-45.0); MEAN CORPUSCULAR VOLUME 85 FL (80-99); MONOCYTES % (AUTO) 4.9 % (1.0-10.0); NEUTROPHILS % (AUTO) 73.5 % (45.0-75.0); PLATELET COUNT 377 K/UL (150-450); RED BLOOD COUNT 4.14 M/UL (4.20-5.40); RED CELL DISTRIBUTION WIDTH 18.5 % (11.6-14.8)
[2018-10-18 06:28] LABS: ANION GAP 7 mmol/L (5-15); BLOOD UREA NITROGEN 14 mg/dL (7-18); CALCIUM 8.9 MG/DL (8.5-10.1); CARBON DIOXIDE 29 MMOL/L (21-32); CHLORIDE 98 MMOL/L (98-107); CREATININE 0.9 MG/DL (0.55-1.30); POTASSIUM 3.9 MMOL/L (3.5-5.1); SODIUM 134 MMOL/L (136-145)
--- NOTE | 2018-10-18 07:30 | NUR ---
NURSE NOTES:BEDSIDE ROUNDS DONE WITH NIGHT RN(MAXIM),PATIENT ASLEEP,ROOM AIR,ILEO WITH BROWNISH EFFLUENT,GT.CLAMPED.NO SIGN OF PAIN.
--- NOTE | 2018-10-18 07:31 | NUR ---
HAND-OFF: Report given to ARI Mcgrath. Patient stable.
[2018-10-18 08:00] VITALS: BP 119/71
--- NOTE | 2018-10-18 08:20 | NUR ---
NURSE NOTES:SEEN BY DR. ANTON,DC/D ILEO,GT,AND PERINEAL SUTURES.DRESSINGS CHANGED BY SAME.PLAN OF CARE RE:SELF INTUBATION TO START AT 1000,BED REST FOR NOW/NPO,TO RESUME DIET AT 1000.VERBALIZED UNDERSTANDING.
--- NOTE | 2018-10-18 08:24 | General Progress Note ---
Progress Note Progress Note AVSS Doing well with gastrostomy plugged. Eating 70% BCIR diet ABdomen soft. Perineal sutures removed - small area superficial separation with bleeding treated with silver nitrate Gastrostomy removed BCIR ileo catheter removed - reinserts readily Hgb 11.2 BUN down 14 Urine 3150 BCIR ileo 620 Imp. Doing well Plan: RN teaching and supervision of BCIR self intubations: q2h am to hs and 0200 continue strict I&O d/c PIC line tonight if stable today and intubating well Chung Gonzales MD Oct 18, 2018 08:24
--- NOTE | 2018-10-18 10:00 | NUR ---
NURSE NOTES:SELF INTUBATION DONE IN BATH ROOM,AND IN BED USING SHAI CATH,WITH RN SUPERVISION,BUT NO OUTPUT,ONLY IN THE TUBING,APPROXIMATELY 5CC.NO C/O ABDOMINAL PRESSURE,INTAKE:360CC,VOIDED:300CC. NOTIFIED ORDERS CARRIED OUT.PATIENT INFORMED.
[2018-10-18] MEDS: Cyclobenzaprine 10mg Tab ORAL SCH ×3 (10:05→17:27)
--- NOTE | 2018-10-18 10:39 | General Progress Note ---
Assessment/Plan Problem List: (1) Postoperative ileus ICD Codes: K91.89 - Other postprocedural complications and disorders of digestive system; K56.7 - Ileus, unspecified SNOMED: 651490924 (2) Ileostomy, has currently ICD Codes: Z93.2 - Ileostomy status SNOMED: 817243774 (3) Abdominal pain ICD Codes: R10.9 - Unspecified abdominal pain SNOMED: 95780763 (4) Ileus ICD Codes: K56.7 - Ileus, unspecified SNOMED: 430954251 (5) Ulcerative colitis ICD Codes: K51.90 - Ulcerative colitis, unspecified, without complications SNOMED: 80121519 Assessment/Plan new PVT>> almost resolved based on CT done today>>> no need for anticoagulation off of tpn fu labs fu surg recs Subjective ROS Limited/Unobtainable: Yes Allergies: Coded Allergies: MORPHINE (Verified Allergy, Severe, 09/30/18) rash,hallucination,fallig off,itching PREDNISONE (Verified Allergy, Severe, Itching, 09/30/18) swelling,itching Subjective feeling much better Objective Last 24 Hour Vital Signs Date Time Temp Pulse Resp B/P (MAP) Pulse Ox O2 Delivery O2 Flow Rate FiO2 10/18/18 08:20 Room Air 10/18/18 08:00 98.6 79 17 119/71 (87) 99 10/18/18 04:00 98.4 89 18 93/58 (70) 95 10/18/18 00:00 99.1 100 18 108/66 (80) 97 10/17/18 21:00 Room Air 10/17/18 20:00 98.6 95 17 111/67 (82) 97 10/17/18 16:00 97.4 92 18 108/69 (82) 100 10/17/18 12:00 98.4 90 17 102/53 (69) 97 Intake and Output 10/17/18 10/18/18 18:59 06:59 Intake Total 2288 ml 1084 ml Output Total 2550 ml 1250 ml Balance -262 ml -166 ml Intake Oral 1400 ml 940 ml IV Total 888 ml 144 ml Output Urine Total 2150 ml 1000 ml Other 400 ml 250 ml Laboratory Tests 10/18/18 05:45: White Blood Count 9.0, Red Blood Count 4.14L, Hemoglobin 11.2L, Hematocrit 35.2L , Mean Corpuscular Volume 85, Mean Corpuscular Hemoglobin 27.1, Mean Corpuscular Hemoglobin Concent 31.9L, Red Cell Distribution Width 18.5H, Platelet Count 377, Mean Platelet Volume 7.3, Neutrophils (%) (Auto) 73.5, Lymphocytes (%) (Auto) 15.9L, Monocytes (%) (Auto) 4.9, Eosinophils (%) (Auto) 4.7H, Basophils (%) (Auto) 1.0, Sodium Level 134L, Potassium Level 3.9, Chloride Level 98, Carbon Dioxide Level 29, Anion Gap 7, Blood Urea Nitrogen 14 , Creatinine 0.9, Estimat Glomerular Filtration Rate > 60, Glucose Level 84, Calcium Level 8.9 Height (Feet): 5 Height (Inches): 6.00 Weight (Pounds): 176 General Appearance: alert EENT: normal ENT inspection Neck: supple Cardiovascular: normal rate Respiratory/Chest: lungs clear Abdomen: normal bowel sounds, non tender, soft Extremities: non-tender Jasbir Guzman MD Oct 18, 2018 10:39
[2018-10-18 12:00] VITALS: BP 102/61
--- NOTE | 2018-10-18 12:00 | NUR ---
NURSE NOTES:SELF INTUBATION DONE IN BATHROOM,TRIED TO USE SHAI CATH.BUT NO OUTPUT.C/O ABDOMINAL PRESSURE.FENTON CATH#28 USED AND GOT 100CC EFFLUENT,PATIENT CLAIMS SHE FEELS BETTER.
--- NOTE | 2018-10-18 13:41 | NUR ---
NURSE NOTES:DR. ANTON CALLED IN,INFORMED RE;UNABLE TO USE ELICEO JOHNSON.#28 USED FOR SELF INTUBATION,GOT 100CC OUTPUT.ORDERS CARRIED OUT.CHARGE NURSE UPDATED.
[2018-10-18 16:00] VITALS: BP 101/63
--- NOTE | 2018-10-18 18:00 | NUR ---
NURSE NOTES: SELF INTUBATION WITH RN SUPERVISION,WITH THICK EFFLUENT,FLUSHED WITH 20CC NS AND MEDICATED WITH VIT.C 500MG.NO C/O PAIN.PICC LINE D/CD.PRESSURE DRESSING APPLIED.NO ACTIVE BLEEDING.
[2018-10-18] MEDS: Ascorbic Acid 500mg tab ORAL PRN (18:25)
--- NOTE | 2018-10-18 19:21 | NUR ---
HAND-OFF: Report given to MAXIM CHAPMAN.PATIENT STABLE.
[2018-10-18 20:00] VITALS: BP 110/63
--- NOTE | 2018-10-18 20:15 | NUR ---
NURSE NOTES: Received report from ARI Mcgrath. Patient is in bed, AAox4. VSS, pain 4/10 lower lack. Advil given. RN supervised self intubations per MD order with use of gillis catheter. Patient tolerated well. GT dressing and perineal dressing changed. Due med given, needs attended to. Bed low, call light within reach.
[2018-10-18] MEDS ORDERED: Neosporin Oint Ud Pkt TOPIC PRN (22:00)
[2018-10-19] VITALS: BP 101/61
[2018-10-19] MEDS: Simethicone 80mg tab ORAL SCH ×6 (02:22→20:21)
[2018-10-19] MEDS: Ascorbic Acid 500mg tab ORAL PRN (06:36)
[2018-10-19] MEDS: HYDROcodone/Acetamin 7.5/325 tab ORAL PRN ×2 (06:39→17:34)
--- NOTE | 2018-10-19 06:42 | NUR ---
NURSE NOTES: Patient refusing 0600 self intubation. No c/o bloating/ fullness. Fishtail given for pain of 5/10 lower back and abdomen.
--- NOTE | 2018-10-19 07:45 | NUR ---
Received report from Tasha CHAPMAN. Patient is awake alert and oriented x4 during rounds, no acute distress noted. Abdominal dressings dry and intact. Patient reporting "aching" in abdomen and back, not requesting pain medication. Side rails upx2, bed low and locked, call light in reach. Will continue to monitor.
--- NOTE | 2018-10-19 07:47 | NUR ---
HAND-OFF: Report given to ARI Rodríguez. Patient stable.
[2018-10-19 08:00] VITALS: BP 115/78
--- NOTE | 2018-10-19 08:30 | NUR ---
NURSE NOTES: Patient successfully self intubated with grimm catheter, patient reports that grimm catheter is much easier for her to use. 200mL of output with self intubation. Will continue to educate and assess.
[2018-10-19] MEDS: Cyclobenzaprine 10mg Tab ORAL SCH ×3 (09:22→18:38)
--- NOTE | 2018-10-19 10:11 | General Progress Note ---
Progress Note Progress Note AVSS Learning intubation techniques - Medena catheter and 28Foley work best, not the Amalia PIC removed last night Abdomen soft. Mild irritation/inflam at gastrostomy site superficial Irregular stoma edges but healing Perineum with superficial separation but clean Urine 2000 BCIR ileo 745 (eating 75%) Imp. Slowly healing due to depleted condition on admission and therapy with biologics for her Ulcerative Colitis Plan: Increase perineal wound care frequency to 4x daily Continue RN supervised/education of BCIR self-intubations continue strict I&O neosporin to gastrostomy site Chung Gonzaels MD Oct 19, 2018 10:11
--- NOTE | 2018-10-19 10:44 | General Progress Note ---
Assessment/Plan Problem List: (1) Postoperative ileus ICD Codes: K91.89 - Other postprocedural complications and disorders of digestive system; K56.7 - Ileus, unspecified SNOMED: 681688676 (2) Ileostomy, has currently ICD Codes: Z93.2 - Ileostomy status SNOMED: 217364219 (3) Abdominal pain ICD Codes: R10.9 - Unspecified abdominal pain SNOMED: 20286409 (4) Ileus ICD Codes: K56.7 - Ileus, unspecified SNOMED: 492016386 (5) Ulcerative colitis ICD Codes: K51.90 - Ulcerative colitis, unspecified, without complications SNOMED: 06640542 Assessment/Plan new PVT>> almost resolved based on CT done today>>> no need for anticoagulation off of tpn fu labs fu surg recs Subjective ROS Limited/Unobtainable: Yes Allergies: Coded Allergies: MORPHINE (Verified Allergy, Severe, 09/30/18) rash,hallucination,fallig off,itching PREDNISONE (Verified Allergy, Severe, Itching, 09/30/18) swelling,itching Subjective feeling much better Objective Last 24 Hour Vital Signs Date Time Temp Pulse Resp B/P (MAP) Pulse Ox O2 Delivery O2 Flow Rate FiO2 10/19/18 08:00 97.7 95 20 115/78 (90) 100 10/19/18 00:00 97.7 83 17 101/61 (74) 96 10/18/18 21:00 Room Air 10/18/18 20:00 98.9 87 18 110/63 (79) 99 10/18/18 16:00 98.8 92 18 101/63 (76) 99 10/18/18 12:00 98.8 81 17 102/61 (75) 99 Intake and Output 10/18/18 10/19/18 18:59 06:59 Intake Total 1380 ml 800 ml Output Total 1335 ml 1410 ml Balance 45 ml -610 ml Intake Oral 1380 ml 800 ml Output Urine Total 900 ml 1100 ml Other 435 ml 310 ml Height (Feet): 5 Height (Inches): 6.00 Weight (Pounds): 176 General Appearance: alert EENT: normal ENT inspection Neck: supple Cardiovascular: normal rate Respiratory/Chest: lungs clear Abdomen: normal bowel sounds, soft Extremities: non-tender Jasbir Guzman MD Oct 19, 2018 10:44
[2018-10-19 12:00] VITALS: BP 135/82
[2018-10-19] MEDS: Neosporin Oint 15gm TOPIC SCH ×3 (13:15→20:21)
[2018-10-19 16:00] VITALS: BP 101/62
--- NOTE | 2018-10-19 19:00 | NUR ---
NURSE NOTES: Total ileo output for my shift: +690mL Total urine output: 2100mL Patient tolerating diet well, self intubating well with grimm catheter, instructed patient how to flush catheter and patient returned demonstration. Changed perineal dressing x3 per order. Noted some blood staining on perineal area gauze earlier in day, assessed area after 1800 and noted area is clean with no bleeding. Patient given discharge supplies per order. Ambulated in hallway x1. Pain well managed.
--- NOTE | 2018-10-19 19:30 | NUR ---
HAND-OFF: Report given to Tasha CHAPMAN. Patient is in stable condition.
[2018-10-19 20:00] VITALS: BP 104/67
--- NOTE | 2018-10-19 20:02 | NUR ---
NURSE NOTES: Received report from ARI Rodríguez.
--- NOTE | 2018-10-19 20:58 | NUR ---
NURSE NOTES: Patient is aaox4. VSS, no shortness of breath. No pain noted. Ambulated in hallway. Supervised self intubation @ 2000 with grimm catheter, output 80 ml, tolerated well. Perianal dressing changed, no bleeding noted. Neosporin applied to GT site. Due med given, bed low, call light within reach.
[2018-10-20] VITALS: BP 110/60
[2018-10-20] MEDS: Simethicone 80mg tab ORAL SCH ×3 (00:41→09:12)
[2018-10-20] MEDS: HYDROcodone/Acetamin 7.5/325 tab ORAL PRN ×2 (00:41→09:12)
[2018-10-20 04:00] VITALS: BP 101/64
--- NOTE | 2018-10-20 07:30 | NUR ---
NURSE NOTES: Patient is in bed awake and able to verbalize needs. Patient is stable and in good spirits. Will empty ileo as ordered. Patient denies pain or SOB at this time. Will change dressing as ordered. Stoma is clean and dry, will change dressing as ordered. Plan of care discussed with patient. Patient is comfortable in bed with call light within reach, will continue to monitor.
--- NOTE | 2018-10-20 07:51 | NUR ---
HAND-OFF: Report given to ARI Baker. Patient stable.
[2018-10-20 08:00] VITALS: BP 122/82
--- NOTE | 2018-10-20 08:36 | General Progress Note ---
Progress Note Progress Note AVSS Doing well with BCIR self-intubations and eating better Abdomen soft, flat. Slowly healing gastrostomy site, peristomal and bhavin drain site. Perineum with slight superficial separation 50% of incision, dry, clean, no inflammation Urine 3500 BCIR ileo 950 Imp. Doing well Slow healing due to presenting underlying condition Plan: discharge Rx [place] 5/325 #60 q4h prn and Ibuprofen 400mg #40 q6h prn Full instructions/limitations/supplies provided/discussed f/u office 10/24 Chung Gonzales MD Oct 20, 2018 08:36
[2018-10-20] MEDS: Neosporin Oint 15gm TOPIC SCH (09:00)
[2018-10-20] MEDS: Ascorbic Acid 500mg tab ORAL PRN (09:12)
[2018-10-20] MEDS: Cyclobenzaprine 10mg Tab ORAL SCH (09:12)
--- NOTE | 2018-10-20 10:24 | GI Progress Note ---
Assessment/Plan Problems: (1) Ileostomy, has currently ICD Codes: Z93.2 - Ileostomy status SNOMED: 615500590 (2) Postoperative ileus ICD Codes: K91.89 - Other postprocedural complications and disorders of digestive system; K56.7 - Ileus, unspecified SNOMED: 743300081 (3) Abdominal pain ICD Codes: R10.9 - Unspecified abdominal pain SNOMED: 82247897 (4) Ileus ICD Codes: K56.7 - Ileus, unspecified SNOMED: 995082807 (5) Ulcerative colitis ICD Codes: K51.90 - Ulcerative colitis, unspecified, without complications SNOMED: 03657126 Status: stable Status Narrative Discussed with Dr. Guzman Assessment/Plan new PVT>> almost resolved based on CT done today>>> no need for anticoagulation Plan for discharge today off of tpn fu labs fu surg recs The patient was seen and examined at bedside and all new and available data was reviewed in the patients chart. I agree with the above findings, impression and plan. (Patient seen earlier today. Signature stamp does not reflect patient encounter time.). - Jasbir Guzman MD Subjective Gastrointestinal/Abdominal: Reports: no symptoms Objective Last 24 Hour Vital Signs Date Time Temp Pulse Resp B/P (MAP) Pulse Ox O2 Delivery O2 Flow Rate FiO2 10/20/18 09:00 Room Air 10/20/18 08:00 97.2 110 18 122/82 (95) 97 10/20/18 04:00 98.1 84 18 101/64 (76) 98 10/20/18 00:00 98.6 89 18 110/60 (77) 98 10/19/18 21:00 Room Air 10/19/18 20:00 97.9 90 20 104/67 (79) 98 10/19/18 19:08 99.0 10/19/18 18:04 99.0 10/19/18 16:00 99.0 85 18 101/62 (75) 97 10/19/18 14:33 97.3 10/19/18 12:00 97.3 96 19 135/82 (99) 99 Intake and Output 10/19/18 10/20/18 19:00 07:00 Intake Total 991 ml 720 ml Output Total 2790 ml 1660 ml Balance -1799 ml -940 ml Intake Oral 991 ml 720 ml Output Urine Total 2100 ml 1400 ml Other 690 ml 260 ml # Voids 4 3 Height (Feet): 5 Height (Inches): 6.00 Weight (Pounds): 176 General Appearance: WD/WN, no apparent distress, alert Cardiovascular: normal rate Respiratory/Chest: normal breath sounds, no respiratory distress Abdominal Exam: normal bowel sounds, non tender, soft Extremities: normal range of motion, non-tender Liana Woods NP Oct 20, 2018 10:24
--- NOTE | 2018-10-20 10:45 | NUR ---
NURSE NOTES: Patient discharged home as ordered. Patient is stable and denies pain at this time. No IV access. Skin is clean, dry, and intact. Surgical site dressed, clean and dry. Thorough discharge instructions given by Dr. Gonzales and RN, verbalized understanding. Patient is able to self-intubate. Patient has all belongings. Patient assisted into car without incident by 2 RNs and Malini.
[2018-10-20] MEDS ORDERED: NS Irrig 1000ml ONE (11:10)
--- NOTE | 2018-10-23 11:56 | Discharge Summary ---
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 Patient undergone colonoscopy in the past , which revealed stricture of the sigmoid and mid upper rectum, but recently in January 2018 colonoscopy revealed no signs of stricture. Since 2016 patient had biopsy-proven anal intraepithelial neoplasm , which had been extensive and high-grade and treated by cauterizing squamous intraepithelial lesion . Patient was not a candidate for restorative procedure with ileoanal pouch. Patient also complained of joint pain and uveitis from ulcerative colitis. In the past patient was taking various medications , including prednisone and 6 -MP , most recently Entyvio and Canasa suppository ( mesalamine). Patient was scheduled to undergo proctocolectomy with creation of a Leal continent intestinal reservoir to avoid conventional ileostomy ,requiring wearing an external appliance. Consultations Dr Guzman -GI specialist Procedures s/p 10/01/[address] Gonzales 1. Proctocolectomy with laparoscopic mobilization of hepatic and splenic flexures 2. Leal Continent Intestinal [place]. 3. Catheter gastrostomy. Hospital Course -PICC line was placed prior to surgery. -Full discussion regarding surgery, including laparoscopic mobilization of flexures, proctocolectomy, and BCIR including gastrostomy and various drains along with risks, general and specific to Leal continent ileostomy, were discussed with the patient -Patient consented to procedure -Patient started on IV hydration -Bowel preparation provided with antibiotics and mechanical -Patient received preoperative heparin -Patient subsequently undergone on 10/01 proctocolectomy with laparoscopic mobilization of hepatic and splenic flexures, Leal continent intestinal reservoir and catheter gastrostomy 10/02 -pain management was addressed initially with STATIC BALANCER Dilaudid with basal rate and breakthrough doses -intake and output were closely monitored -chest showed decreased expansion -anemia workup revealed severe iron deficiency with ferritin of 6 ; B12 and folate were stable. -patient continued to be n.p.o. ; pulmonary toilet provided ; bedrest with frequent moving ; patient to continue Jung catheter due to pelvic dissection -patient started on TPN -patient started on Venofer 10/03 -patient was continued to be n.p.o. , with TPN -pain management was continued : added Toradol for breakthrough pain -patient mobilized out of bed to ambulate twice a day 10/04 -patient was continued on postoperative empiric antibiotics and Venofer -Jung continued -patient ambulated -hemoglobin stable 8.7 -intake and output were closely monitored ; stoma appeared pink; Kanika drains with scant serous drainage 10/05 -npo status continued -potassium phosphate infusion given for low phosphorus -DVT prophylaxis -one JASON drain was removed 10/06 -abdomen noted to be mildly distended -stat CT scan of abdomen and pelvis revealed dilated small bowel loops , no obvious obstruction , no evidence of abscess or leak from gastrostomy or ileal pouch. -scopolamine patch provided for nausea. -N.p.o. TPN and Jung continued -follow-up with KUB in the afternoon 10/07 -second JASON drain was remove -KUB revealed dilated small bowel loops , not significantly change -continue n.p.o. TPN, Jung, antibiotic -continuous drainage of Leal pouch -patient had thrush; Diflucan p.o. and nystatin oral suspension 4 times daily started -second JASON was removed 10/08 -patient feeling better, less cramping; nausea -slowly resolving ileus/partial bowel small bowel obstruction -continue n.p.o. and TPN -antibiotic discontinued 10/09 -Jung catheter discontinued -basal infusion of STATIC BALANCER discontinued , left demand dosing only -patient started on clear liquid diet and gastrostomy 3:3 protocol as tolerated -continue TPN -maintain continuous drainage of BCIR ileo 10/10 -clear liquids and TPN continued -gastrostomy 5:1 protocol -patient ambulated better , and heparin discontinued -continuous drainage of Leal continent ileostomy -STATIC BALANCER discontinued, and patient started on [place] as needed -Diflucan daily due to mild Rowan rash in perineum 10/11 -patient had recurrent episodes of mid abdominal and suprapubic pain/spasm/ cramps ,but no associated nausea -patient made n.p.o. -gastrostomy placed back to continuous drainage -patient additionally medicated with Toradol and Dilaudid for pain -TPN continued -patient started on trial of Flexeril -IV fluids rate increased due to increased gastrostomy output -KUB x-ray ordered , which revealed gassy distended small bowel loops in the right lower abdomen, similar to prior study, may be ileus versus low-grade small bowel obstruction 10/12 -patient feeling better, improved with n.p.o. status and gastrostomy tube drainage -continue TPN and IVF -antifungal discontinued -repeat CT of the abdomen and pelvis with oral and IV contrast 10/13 -CT of the abdomen and pelvis with IV contrast revealed markedly decreased caliber of previously dilated small bowel loops, improved forward transit of contrast, however ingested contrast had not reached the ileostomy pouch; mild obstruction was not completely excludable. Linear filling defect presumably thrombus within the main portal vein, not appear to be obstructive -GI consult requested regarding need for anticoagulation due to presumptive new portal vein thrombus -abdomen soft, nondistended, healing nicely ; perineum clean, -continue TPN and IV fluids -patient continued to be n.p.o. -hemoglobin hematocrit were closely monitored with goal to keep hemoglobin above 7 10/14 -patient started on clear liquid diet with gastrostomy 5:1 protocol -nystatin cream applied to perineum due to Rowan skin rash -patient started on folic acid supplement since level was low normal -TPN continued - GI specialist closely reviewed imaging, discussed with radiologist and recommended to repeat CT scan 10/15 -patient tolerated 60% of clear liquid diet with gastrostomy 5: 1 protocol. -patient started on BCIR low residue diet -gastrostomy was plugged continuously -TPN continued until sufficient amount of oral intake -continuous drainage of Leal continent ileostomy pouch was maintained until tolerating diet - gastrostomy plugged -IV fluids stopped 10/16 -patient demonstrated gradually improving gastric and small bowel function. -continue TPN 10/17 -repeated CT of the abdomen and pelvis showed nearly or completely resolved previously demonstrated nonobstructive portal vein thrombus -TPN discontinued -patient was clinically improving -pain was controlled 10/18 -patient started on RN teaching and supervision of BCIR self intubation every 2 hours a.m. -nightly and 0200 -continue strict intake and output -PICC line was discontinued 10/19 -patient was slowly healing due to depleted condition on admission and therapy with the biologics for ulcerative colitis -continue RN supervised self BCIR intubation and education -continue strict intake and output -Neosporin provided to gastrostomy site 10/20 -patient was stable for discharge -doing well with BCIR self intubation, eating better , abdomen soft and flat -gastrostomy site slowly healing , peristomal and [place] drain site healing -Full instructions/ limitations/ supplies provided/ discussed; -prescription for [place] and ibuprofen provided -follow-up in the office 10/24 FINAL DIAGNOSES Intractable ulcerative colitis with anal intraepithelial neoplasm, involving lower rectum and anal canal. s/p Proctocolectomy with laparoscopic mobilization of hepatic and splenic flexures. Leal Continent Intestinal [place]. Catheter gastrostomy Postoperative ileus Atelectasis Postoperative partial small bowel obstruction Portal vein thrombosis nonobstructive , resolved Severe iron deficiency anemia Discharge Condition Upon Discharge: stable Discharge Disposition Patient was discharged to Home (01) Discharge Instructions Discharge Instructions Special Instructions I have been assigned to complete a D/C Summary on this account. I was not involved in the patient management Tere Baig NP Oct 23, 2018 11:56
== END 2018-10-20 11:11 | disposition home or self-care (01) | DRG 329 ==
LOC: 3E 09:53
PROC: 02HV33Z Insertion of Infusion Device into Superior Vena Cava, Percutaneous Approach (ICD-10-PCS; principal; 2018-09-30)
PROC: B518ZZA Fluoroscopy of Superior Vena Cava, Guidance (ICD-10-PCS; principal; 2018-09-30)
PROC: 0D1B0Z4 Bypass Ileum to Cutaneous, Open Approach (ICD-10-PCS; 2018-10-01)
PROC: 0DTN0ZZ Resection of Sigmoid Colon, Open Approach (ICD-10-PCS; 2018-10-01)
PROC: 0DTP0ZZ Resection of Rectum, Open Approach (ICD-10-PCS; 2018-10-01)
PROC: 0DH63UZ Insertion of Feeding Device into Stomach, Percutaneous Approach (ICD-10-PCS; 2018-10-01)
DX: K51.80 Other ulcerative colitis without complications (principal); I81 Portal vein thrombosis; B37.0 Candidal stomatitis; K56.7 Ileus, unspecified; J98.11 Atelectasis; K56.600 Partial intestinal obstruction, unspecified as to cause; K62.82 Dysplasia of anus; B37.3 Candidiasis of vulva and vagina; D50.9 Iron deficiency anemia, unspecified
CPT/HCPCS: 36415; 36569; 71045; 74018; 74176; 74177; 76937; 80048; 80053; 81001; 81003; 82270; 82378; 82607; 82728; 82746; 82962; 83540; 83550; 83735; 84100; 84439; 84443; 85025; 85044; 85610; 85730; 86850; 86900; 86901; 86920; 87086; 93005; 94003; 94150; J1815; J2250; J2405; J2765